=== PATIENT | female | born 1970 | race Caucasian/White ===

== ENCOUNTER 2024-05-19 22:29 | Emergency (ER) | payer MEDICARE, MEDICAID, SELFPAY ==
--- NOTE | ~2024-05-19 | XR_ITS ---
CLINICAL HISTORY: fall 3 view left shoulder Comparison: None Findings: Bones intact. No dislocations. No significant arthritic change. No erosions. No radiopaque foreign body. IMPRESSION: 1. No acute findings This document has been electronically signed by: Ludin Buchanan MD on 05/19/2024 23:30:59
--- NOTE | ~2024-05-19 | XR_ITS ---
CLINICAL HISTORY: fall 3 view left elbow Comparison: None Findings: No displaced fracture. Mild/minimal osteoarthritis including osteophytes by radiographs.No dislocation. Small-minimal effusion. No radiopaque retained foreign body in the [id number]-dm-bwhy. Superficial and correlate opacities noted. IMPRESSION: 1. No acute fracture or dislocation. 2. Mild degenerative change This document has been electronically signed by: Nelson Alejo MD on 05/19/2024 23:31:11
--- NOTE | ~2024-05-19 | XR_ITS ---
CLINICAL HISTORY: fall 3 view, pelvis and left hip Comparison: None Findings: No displaced fracture or dislocation. Mild osteoarthritis of the both hips. Mild pelvis deformities including iliac wing remodeling and pubic rami deformities appear old chronic. Sacrum and SI joints are partly obscured. Degenerative changes include imaged spine.Moderate stool burden in the koeeo-ru-dgit. Phleboliths noted in the pelvis. IMPRESSION: 1. No acute fracture or dislocation of the left hip. 2. Degenerative changes include both hips. This document has been electronically signed by: Nelson Alejo MD on 05/19/2024 23:28:13
[2024-05-19 22:34] VITALS: BP 116/73; PULSE 73; RESP 18; TEMP 37.1; O2SAT 94; BMI 35.1
--- OUTSIDE RECORDS SUMMARY | 2024-05-20 02:40 | XMS_ITS | Encounter Summary ---
Author Organization [facility] Address [phone] [facility] [place] [address] Care Team Providers Care Master Baker Name Role Phone Alex Parks MD Primary Care Provider +- [phone] Mckayla Gregg MD Unavailable [phone] Alex Parks MD Unavailable [phone] Encounter Details Date Type Department Care Team (Late st Contact Info) Description 05/04/2024 Telephone [facility] [place] NEPHROLOGY ([facility]NAL) [address] [place] [address] Praveen Ball MD [address] [place] [address] [email or web address] Social History Tobacco Use Types Packs/Day Years Used Date Smoking Tobacco: Every Day Cigarettes 0.3 38.1 Started: 1987 Smokeless Tobacco: Never Comments:1 pack every 2 days Alcohol Use Standard Drinks/Week Comments Never 0 (1 standard drink = 0.6 oz pur e alcohol) Education Answer Date Recorded Are you interested in more education? Not on ez e 08/07/2022 Are you concerned about learning? Not on file 08/07/2022 No 08/07/2022 No 08/07/2022 Digital Access Answer Date Recorded No 09/02/2022 No 09/02/2022 Reliable internet access at home? Not on file 09/02/2022 Device with a working camera? Not on file Intimate Partner Violence Answer Date R ecorded Are you denied basic needs s uch as food, clothing, or medical care? No 01/22/2024 In the past 12 months have y ou been in a relationship with a person who hurts, threatens, or tries to control you? No 01/22/2024 Are you denied basic needs s uch as food, clothing, or medical care? No 01/22/2024 In the past 12 months have y ou been in a relationship with a person who hurts, threatens, or tries to control you? No 01/22/2024 Sex and Gender Information Value Date Recorded Sex Assigned at Female 10/22/2018 9:40 AM EDT Gender Identity Female 10/22/2018 9:40 AM EDT Sexual Orientation Straight 10/22/2018 9: 40 AM EDT documented as of this encounter Progress Notes * Essie Hernandez MA - 05/04/2024 3:08 PM EST I spoke with patient in regards to a repeat BMP per orders, she needs to repeat nextweek due to having bronchitis he wants he to do when she is feeling better. documented in this encounter Plan of Treatment Upcoming Encounters Date Type Department Care Team (Late st Contact Info) Description 11/25/[address] [place] [address] [place] [address] 01/22/2024 Procedure Pass [facility] Breast Imaging [facility] [address] [place] [address] 06/17/2024 10:40 AM EST Office Visit [address] [address] Reza Early MD [address] [place] [address] [email or web address] 06/17/2024 1:15 PM EST Appointment [facility] Breast Imaging [facility] [address] [place] [address] Ade Ramos MD, MPH [address] [address] [email or web address] 07/01/2024 11:15 AM EDT Office Visit [facility] Department of Orthopaedic Surgery, Podiatry Service [address] [place] [address] Eber Calle DPM [address] [place] [address] [email or web address] 08/01/2024 2:20 PM EDT Office Visit [facility] [address] [address] Jaret Clemons MD [address] [place] [address] - [place] [address] Barrera@[email or web address] 08/09/2024 2:30 PM EDT Appointment [facility] [place] Adult Medicine 151 [facility] [place] [address] Mckayla Gregg MD 151 [place] [address] [email or web address] 11/24/2024 8:[address] [place] [address] [place] [address] Monet Carranza MD, PhD 55 [place] [address] [email or web address] 11/29/2024 9:40 AM EDT Office Visit [facility] NEPHROLOGY (RENAL) [address] [place] [address] Praveen Ball MD [address] [place] [address] [address] [place] [address] CHANTALE@[email or web address] documented as of this encounter Visit Diagnoses Not on filedocumented in this encounter Additional Health Concerns Assessment Noted Time PHQ-9 Depression Total Score: 25 025 11:01 AM EST PHQ-2 Depression Total Score: 6 04/29/19 25 11:01 AM EST documented as of this encounter Care Teams Master Baker Relationship Specialty Start Date End Date Alex Parks MD [address] [place], [place] [address] [place] [address] [email or web address] PCP - General Internal Medicine 03/13/23 Mckayla Gregg MD [address] [place] [address] [email or web address] PCP - Resident PCP Internal Medicine 06/03/23 Alex Parks MD [address] [place] [address] [email or web address] [place] Insurance Assigned Provider 07/18/23 documented as of this encounter Additional Source Comments The information contained in this document represents components of the legal health record. It is not the complete legal health record.[facility]
--- OUTSIDE RECORDS SUMMARY | 2024-05-20 02:40 | XMS_ITS | Encounter Summary ---
Author Organization [facility] Address [phone] [facility] [place] [address] Care Team Providers Care Traffic Lieutenant Name Role Phone Ade Ramos MD, MPH Primary Care Provider [phone] Ade Ramos MD, MPH Unavailable + Ade Ramos MD, MPH Unavailable + Pcp, Unknown Primary Care Provider Unavailabl e Ade Ramos MD, MPH Primary Care Provider + Rosa Damico MD, MPH Unavailable + Alex Parks MD Primary Care Provider + Alex Parks MD Unavailable + Mckayla Gregg MD Unavailable + [phone] Mckayla Gregg MD Unavailable + 00 Alex Parks MD Unavailable + Mckayla Gregg MD Unavailable + 00 Encounter Details Date Type Department Care Team (Late st Contact Info) Description 10/22/2018 Procedure Pass [facility] THIERRY 4 ENDO DEPT [address] [place] [address] Social History Tobacco Use Types Packs/Day Years Used Date Smoking Tobacco: Every Day Cigarettes 0.3 30 Smokeless Tobacco: Never Alcohol Use Standard Drinks/Week Comments No 0 (1 standard drink = 0.6 oz pur e alcohol) Sex and Gender Information Value Date Recorded Sex Assigned at Female 10/22/2018 9:40 AM EDT Gender Identity Female 10/22/2018 9:40 AM EDT Sexual Orientation Straight 10/22/2018 9: 40 AM EDT documented as of this encounter Plan of Treatment Upcoming Encounters Date Type Department Care Team (Late st Contact Info) Description 11/25/[address], [facility] - [place] [address] [place] [address] 01/22/2024 Procedure Pass [address] [address] 06/17/2024 10:40 AM EST Office Visit [address] [address] Reza Early MD [address] [place] [address] [email or web address] 06/17/2024 1:15 PM EST Appointment [address] [address] Ade Ramos MD, MPH [address] [place] [address] [email or web address] 07/01/2024 11:15 AM EDT Office Visit [facility] Department of Orthopaedic Surgery, Podiatry Service [address] [address] Eber Calle DPM [address] [place] [address] [email or web address] 08/01/2024 2:20 PM EDT Office Visit [address] [address] Jaret Clemons MD 243 [facility] [place] [address] [email or web address] 08/09/2024 2:30 PM EDT Appointment [facility] Adult Medicine [address] [place] [address] Mckayla Gregg MD 151 [place] [address] [email or web address] 11/24/2024 8:[address], [facility] [place] [address] [place] [address] Monet Carranza MD, PhD 55 [place] [address] [email or web address] 11/29/2024 9:40 AM EDT Office Visit [facility] NEPHROLOGY (RENAL) [address] [facility] [address] [place] [address] Praveen Ball MD 55 [facility] [address] [place] [address] [email or web address] documented as of this encounter Visit Diagnoses Not on filedocumented in this encounter Additional Health Concerns Infection Onset Date Last Indicated Resolved Time CoV-Risk 04/03/2020 04/29/2020 04/13/2020 1:27 AM EST CoV-Exposed Comment:Recent close contact documented in the COVID-19 PCR/PRO order 04/11/2021 04/18/2021 04/26/2021 1:[address] CoV-Risk Comment:Per Ambulatory Triage Form 04/18/2021 04/24/202105/04 1:22 AM EST CoV-Risk Comment:Per Ambulatory Triage Form 11/14/2022 11/14/202211/25 /2023 1:23 AM EDT CoV-Risk Comment:Per Ambulatory Triage Form 02/11/2024 02/11/202402/21 1:23 AM EST Assessment Noted Time PHQ-9 Depression Total Score: 7 07/16/19 16 9:26 AM EDT PHQ-2 Depression Total Score: 0 07/20/19 19 12:29 PM EDT documented as of this encounter Care Teams Traffic Lieutenant Relationship Specialty Start Date End Date Ade Ramos MD, MPH [address] [place] [address] [email or web address] PCP - General 10/11/13 04/28/20 Pcp, Unknown PCP - General 04/29/20 05/28/20 Ade Ramos MD, MPH [address] [place] [address] [email or web address] PCP - General Internal Medicine 05/29/20 03/12/23 Rosa Damico MD, MPH [address] [place] [address] [email or web address] PCP - Resident PCP Internal Medicine 01/23/23 03/12/23 Alex Parks MD [address] [place] [address] [email or web address] PCP - General Internal Medicine 03/13/23 Mckayla Gregg MD [address] [place] [address] [email or web address] PCP - Resident PCP Internal Medicine 06/03/23 Ade Ramos MD, MPH [address] [place] [address] [email or web address]@[facility] Partners Attributed Provider 06/17/14 01/17/23 Ade Ramos MD, MPH [address] [place] [address] Kavya@[email or web address] Insurance Assigned Provider 07/20/19 04/21/20 Alex Parks MD [address] [place], [place] [address], [place] [address] [email or web address] Partners Attributed Provider 04/18/23 06/20/23 Mckayla Gregg MD [address] [place], [place] [address] [place] [address] [email or web address] Partners Attributed Provider 06/20/23 08/20/23 Alex Parks MD [address] [place] [address] [email or web address] Insurance Assigned Provider 07/18/23 Mckayla Gregg MD [address] [place] [address] [place] [address] [email or web address] Partners Attributed Provider 06/20/23 08/20/23 documented as of this encounter Additional Source Comments The information contained in this document represents components of the legal health record. It is not the complete legal health record.[facility]
--- OUTSIDE RECORDS SUMMARY | 2024-05-20 02:40 | XMS_ITS | Encounter Summary ---
Author Organization [facility] Address [phone] [facility] [place] [address] Care Team Providers Care Rock Mason Name Role Phone Alex Parks MD Primary Care Provider [phone]- [phone] Mckayla Gregg MD Unavailable [phone] Alex Parks MD Unavailable [phone] Reason for Visit * Reason Comments Medication Refill Encounter Details Date Type Department Care Team (Late Contact Info) Description 03/24/2024 Refill [facility] Adult Medicine [address] [place] [address] Mckayla Gregg MD 151 [place] [address] [email or web address] Medication Refill Social History Tobacco Use Types Packs/Day Years [...] CT, [facility] [place] [address] [place] [address] 01/22/2024 Procedure Pass [facility] Breast [address] [address] 06/17/2024 10:40 AM EST Office Visit [address] [address] Reza Early MD [address] [place] [address] [email or web address] 06/17/2024 1:15 PM EST Appointment [facility] [address] [place] [address] Ade Ramos MD, MPH [address] [address] [email or web address] 07/01/2024 11:15 AM EDT Office Visit [facility] Department of Orthopaedic Surgery, Podiatry Service 55 [facility] [address] [place] [address] Eber Calle, DPDianne 98 [place] [address] [email or web address] 08/01/2024 2:20 PM EDT Office Visit [facility] [address] [address] Jaret Clemons MD 243 [facility] [place] [address] [email or web address] 08/09/2024 2:30 PM EDT Appointment [facility] Adult Medicine [address] [place] [address] Mckayla Gregg MD 151 [place] [address] [email or web address] 11/24/2024 8:[address] [place] [address] [place] [address] Monet Carranza MD, PhD [address] [place] [address] [email or web address] 11/29/2024 9:40 AM EDT Office Visit [facility] NEPHROLOGY ([facility]NAL) 100 [facility] [address] [place] [address] Praveen Ball MD 55 [facility] [address] [place] [address] [email or web address] documented as of this encounter Visit Diagnoses Diagnosis Nasal congestion Other diseases of nasal cavity and sinuses documented in this encounter Additional Health Concerns Assessment Noted Time PHQ-9 Depression Total Score: 25 024 11:07 AM EDT PHQ-2 Depression Total Score: 6 01/22/20 24 11:07 AM EDT documented as of this encounter Care Teams Rock Mason Relationship Specialty Start Date End Date Alex Parks MD [address] [place] [address] [place] [address] [email or web address] [place] PCP - General Internal Medicine 03/13/23 Mckayla Gregg MD [address] [place] [address] [email or web address] PCP - Resident PCP Internal Medicine 06/03/23 Alex Parks MD [address] [place] [address] [email or web address] [place] Insurance Assigned Provider 07/18/23 documented as of this encounter Additional Source Comments The information contained in this document represents components of the legal health record. It is not the complete legal health record.[facility]
--- OUTSIDE RECORDS SUMMARY | 2024-05-20 02:40 | XMS_ITS | Clinical Summary ---
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 Plan (04/22/2023 10:44 PM EST): Switched to irbesartan from losartan at last visit w/PCP Dr. Alex Parks 04/10/23. Since then, reports significant decrease in UOP (reports about half her UOP now) along with swelling in her hands and face, and GI upset specifically when taking irbesartan. She stopped taking irbesartan 2d ago and ended up with a severe headache. Took her BP at home and it was 203/98. She decided to take her losartan 100 mg instead. BP dropped to 179/82 when she re-took it a few hours later and she was able to sleep. She is still taking doxazosin 4 mg and verapamil 120 mg, as well as daily losartan 100 mg now. On exam, no appreciable facial or periorbital edema noted by pt. She does have very mild swelling in her hands b/l. BP today remains severely elevated 184/96 on manual re-check by me. Endorses moderate to severe WHITLEY but this is common for her when her BP is this high. She describes significant BEAN now, this usually happens when her BP is elevated. Feels persistent tightness in her chest, but denies chest pain. Denies dizziness, vision changes. No syncope. Her EKG shows sinus bradycardia (HR 57) w/nl axis, nl intervals, no ischemic changes, good R wave progression, increased QRS voltages but no LV stain pattern. Overall highest c/f progressive renal failure on new anti-HTN regimen and hypertensive urgency with possible cardiovascular sequela given her persistent chest tightness ad BEAN. Strongly recommend that pt present to ED for ongoing workup and tx to decrease her BP. She declines despite understanding significant health risk this poses for her. Understands that severe HTN like hers can result in significant injury and even . We checked BMP today which shows stably elevated Cr, pt aware and will see renal and vascular soon for her DAVID. After brief discussion with her PCP today, will add amlodipine despite pt being on verapamil. Dr. Parks spoke with pharmacy and amlodipine recommended by them, given though that adding amlodipine could be helpful for adding more peripheral arterial dilation. We are unable to add labetalol or increase verapamil given her bradycardia. - Pt counseled to present to ED for chest tightness and severe WHITLEY iso hypertensive urgency with SBP>180, pt declines, understands risks and able to repeat them back to me. - BMP stable today, discussed with pt - EKG w/sinus bradycardia (HR 57) w/nl axis, nl intervals, no ischemic changes, good R wave progression, increased QRS voltages but no LV stain pattern. - Called pharmacy to confirm final anti-HTN regimen: verapamil 120 mg daily (cannot increase more, limited by bradycardia), doxazosin 4 mg daily, losartan 100 mg daily, now start amlodipine 5 mg daily per PCP Assessment & Plan (04/10/2023 2:34 PM EST): BP Readings from Last 3 Encounters: 04/10/23 (!) 174/120 03/26/23 (!) 158/78 03/19/23 (!) 175/83 Presents for an urgent visit for uncontrolled BP Previously BP well controlled until 11/2022 visit Taking doxazosin 4 mg, verapamil 120 mg, losartan 100 Reports a little WHITLEY now and total body pain which is chronic for her Last 3 days BP recordings at home, checking first thing in the morning while in pain - 197 /97, 201 / 100, 199/97 Takes all meds at night Wakes up in the night gasping for air, short of breath at times Endorses snoring During our visit, renal US results showing R sided renal artery stenosis > 60% BP in 170s/90s today in-office A/P: Refractory htn likely 2/2 renal artery stenosis. Low concern for hypertensive emergency at this time. - Switch losartan to irbesartan 300 mg - Continue verapamil 120 mg and doxazosin 4 mg - CMP, renin, aldosterone, urine/plasma metanephrines to rule out other secondary causes - Referral to vascular as below for DAVID - Consider sleep study if no improvement with med titration and DAVID correction - RN visit in 2 weeks for BP- goal BP < 130/80. If not at goal, add amlodipine to 5 and consider pharmacy referral. - Check BMP in 2 weeks after ARB titration today - Advised pt to check BP daily and record values. Bring BP log and machine to next visit with RN. Assessment & Plan (03/19/2023 8:49 PM EST): Recently her previously well controlled BP has been quite high, and her headache is bothering her. I think she is taking prescribed meds, and we have been, titrating doxazosin. Other meds, verapamil w/ dose limited by bradycardia, diuretic stopped b/o azotemia that never fully resolved, losartan. She had been better controlled before, including when her weight was higher. Will check for secondary causes, mostly concerned w/ DAVID, given azotemia and hx w/ diuretic. Pheo less of a concern, given clinton. Increase dox to 4 mg qhs. Max dose for HTN is 16 mg. She has a PCP appt in >2 months. I will set a reminder to get in touch about her BP, and we can titrate it further as needed. Assessment & Plan (11/27/2022 10:33 AM EDT): BP 170-180 at home. High on entry here, repeat 130/90. On ARB, CCB, intolerant to diuretics. No allergies to BP meds. Trial doxazosin 1 mg at hs, advised risk first dose hypotension, this can be titrated. Assessment & Plan (09/04/2022 3:28 PM EDT): BP good at recent f/u visit and at home We had started a diuretic, but she quickly became azotemic on it, and this did not resolve completely after stopping the diuretic. She had an appt this morning for renal u/s, which was normal. Renal referral is pending. Will update BMP Assessment & Plan (08/07/2022 1:34 PM EDT): BP at goal during visit today She has stopped dyazide and continues losartan and verap Repeat labs today, will f/u w pt re results Assessment & Plan (07/30/2022 5:20 PM EDT): More azotemic on Dyazide, I had her reduce it to every other day, now even more azotemic. I will have her stop it, repeat the lab in about a week. If not improved, will do renal u/s and consult renal. Assessment & Plan (06/26/2022 11:13 AM EDT): Home BP high add dyazide, lab reminder 1-2 weeks Assessment & Plan (06/12/2022 1:47 PM EST): Current BP meds losartan 25 mg, 2 tabs = 50 mg qAM, and verapamil 120 mg tablet ( not capsule) (somehow got kicked off med list) at hs. Home BP 189.116, pulse 78 Very high BP. Incr losartan to 100 mg and take at hs. I will call in 1-2 weeks and see about titrating verap, or adding another med. We may consider switching verap to amlod and adding a bb. Assessment & Plan (05/26/2022 7:44 PM EST): Last time her BP was very high. She was asked to resume losartan 25 mg qd. She did not f/u as req'd. Her entry BP is quite high. She was in a lot of pain, and got somewhat agitated around interpretation of the history, we did not visit this, and we need to do so at the upcoming appt. Need to How it is at home. Assessment & Plan (04/27/2022 8:26 AM EST): Pt notified us that verap XL 120 mg capsule not covered by ins, pls switch to tablets. Done. Assessment & Plan (04/03/2022 5:14 PM EST): BP is really high today. Resume losartan 25 mg qd. Has monitor at home, start recording BP. Reminder set to contact her in 3 weeks about BP Assessment & Plan (03/23/2017 9:19 AM EST): She had low BP and felt lightheaded, so stopped both the verapamil and the losartan. Her BP still is a little on the low side off BP meds. Possible reasons - resolution of HTN due to weight loss, neuropathy, or other factors, lowering of BP by psych meds. Will resolve this problem for now Assessment & Plan (11/20/2016 5:11 PM EDT): BP controlled today, and at home, when it is around 112/53 typically. Continue same meds and monitoring Assessment & Plan (07/21/2016 5:15 PM EDT): Home BP is good. BP controlled today. Continue same meds and home monitoring Assessment & Plan (12/11/2015 12:45 PM EDT): BP fine at home, did not bring record today. BP controlled today. Continue same meds and monitoring Assessment & Plan (10/16/2015 2:39 PM EDT): Home BP is good, Jamal forgot their log. BP controlled today. Continue same meds Pain in wrist 10/07/2011 Overview (07/15/2015): Right; De Sylvia's tenosynovitis Assessment & Plan (07/16/2015 3:19 PM EDT): Pt rec'd an injection, had negative outside xray, states sx better. Will observe for now. Obstructive sleep apnea syndrome 07/24/2011 Overview (07/15/2015): 2010 prior to 40+ lbs weight loss, her sleep disordered breathing was very mild w/ less than 2 minutes below 88% O2 sat. Did not meet criteria for CPAP. Other methods of tx Recommended. Assessment & Plan (05/23/2019 1:59 PM EST): This probably remitted after she lost wt. Noted as such on colonoscopy request Osteoarthritis 02/11/2011 Overview (07/15/2015): R 2nd finger Assessment & Plan (12/07/2017 11:15 AM EDT): bilat shoulder pain, influences ability to raise arms. ADL indep. Got worse after stopping topiramate. Lido topical helps somewhat. Full ROM, enc to continue to do ROM exercises to avoid loss of fxn Incr gabapentin as noted Check ESR Bipolar disorder 12/13/2010 Overview (07/16/2015): Past hx depression w/ psychotic features, PTSD. [facility], [address] floor, [place] [address], tel [phone], fax [phone] Assessment & Plan (03/19/2023 8:53 PM EST): Continues in psychopharm in [facility], [facility] as noted - she knows them, says mood is great. She proceeds to show me a number of photos of her late mother, her children, and some of her 15 grandchildren. She updated me about Jamal's situation; seems that they are back in contact. Assessment & Plan (11/27/2022 10:37 AM EDT): She is doing great, euthymic, managing her own life, good support from her younger kids and Jose E, one of the older ones. Assessment & Plan (09/04/2022 3:31 PM EDT): Mood is good. Assessment & Plan (05/26/2022 7:49 PM EST): As prev noted, she had a falling out w/ Jamal, and has been much more independent since then. She has a new WAIST PLEATER she likes, and is working on getting a new apt. She says she is in a good place emotionally right now. Assessment & Plan (04/03/2022 5:37 PM EST): Pt is here for help making arrangements after she and Jamal parted ways. She relates the events, and she is quite calm and coherent. She knows her meds and her diet. She just needs a homemaker b/o physical impairments. She tells me her psychiatrist stopped her clonazepam, and she stopped her Inveiga. I hope she does not relapse off these meds. Assessment & Plan (10/03/2021 1:37 PM EDT): Feeling depressed almost a year after mother . Some days does not want to get out of bed. No SI. Discussed, recommend d/w psychiatrist, which she is doing Assessment & Plan (06/04/2021 6:46 PM EST): Continues w/ pharm and counseling at in [place]. She is feeling good in this regard. Well organized, though she does not know her meds, and affect is great. She is enjoying life, even though mother last year. Assessment & Plan (03/26/2021 10:14 AM EST): Continues w/ psych in [place], doing well w/ her mood. She is somewhat upset b/c the agency monitoring her [employer] failed her building. She shows me a letter w/ numerous upgrades and repairs the landlord has to meet. If they don't, she has to find another apt in 28 days. She has a housing social media campaign manager to help with this. She also reports that Jamal is off doing his own thing and helping less w/ her medical affairs lately. He supervises her meds, but she is managing them herself. She seems more independent and capable of her own self care these days. Assessment & Plan (12/14/2020 12:57 PM EDT): Recent psych med changes - see med list for current meds. She lost her mother less than a week ago, stayed w/ her for the last 2 months. I attended the w/ the family 2 days ago. Today she is coherent, calm, and has a cheerful though appropriate affect. Pt is doing really well except for her eating. She is at peace with the loss of her mother, who suffered greatly due to her illness burden. ECG done to monitor QTc, it is normal Assessment & Plan (06/07/2020 10:44 AM EST): She is on a lot of meds. Her mood is excellent today. She says her psych is going to start cutting back on some of the meds Assessment & Plan (09/22/2019 3:25 PM EDT): She feels her mood and anxiety are good at this time. She has Narcan from another provider, states psych gave it to her b/c she is taking Ambien. She is not taking any opioids Assessment & Plan (05/23/2019 2:03 PM EST): Brings psych med list, adjusted in our list Assessment & Plan (07/19/2018 5:46 PM EDT): Mood is great on current meds. Cont outpatient psych f/u Assessment & Plan (03/18/2018 12:24 PM EST): Psych had taken her off topamax quentin high sugar, now back on topamax. Her mood is good. Assessment & Plan (12/07/2017 11:06 AM EDT): Mood continues very good. She is functioning well and enjoying life Assessment & Plan (07/30/2017 9:08 AM EDT): NO recent changes in meds. Her affect and mood are great, and she is engaging more. No obvious SEs from current meds. Overall, this is a huge improvement. Assessment & Plan (03/23/2017 9:26 AM EST): Mood and anxiety are excellent. She is enjoying life. Active, very coherent today, good affect, able to converse and reconcile meds w/o help of her son. Will check ECG to monitor QTc on some of her psych meds Assessment & Plan (11/20/2016 5:08 PM EDT): Doing much better, still off Abilify. Her granddaughter is staying w/ them for the summer, and she is having a good time. In fact, her affect and presentation is the most relaxed and comfortable I have seen her in years. Assessment & Plan (07/21/2016 5:18 PM EDT): Son says psych took her off Abilify. Her affect and presentation are very good today. Not sure exactly what causes the fluctuations. Will cont w/ psych Assessment & Plan (04/22/2016 1:17 PM EST): Still tapering her meds w/ psych, unclear if further tapers since last visit w/ me, at which time, she seemed quite depressed and unhappy w/ the changes. No signs of a [place] language day care in their [facility]. On exam today she appears depressed, but is calmer and more focused than last time. Assessment & Plan (01/17/2016 6:25 PM EDT): They tell me that her psychiatrist is trying to taper her off all meds, not just psych meds. They lowered the Topamax a little, and since then, she has been more irritable, unmotivated to dress and clean herself, not following her diet, sleepy, eating too much, and now has a month of nocturnal enuresis w/o dysuria or fever. She seems depressed, and maybe not on the best comb of meds, seems to need a lot of medication. Nocturnal enuresis may be related to medications, poor motivation to get up to void, hyperglycemia, UTI. Will check urine culture, consider urogyn consult. They will talk to psych. She wants to go to adult day care, but Jamal does not think he can drive her from [place] to [place] daily. They know only a [place] pgm in [place]. Consult to [employer] resources pg[employer] to look for a [place] or [place] language pgm in their area, so she can go to social activities, and her son can get some respite. Assessment & Plan (07/16/2015 3:33 PM EDT): Her new mental health provider Tiffanie Pandya, [facility], sends a note requesting we do labs and send to her - HBA1c, lipids, thyroid CMP, CBC and diff, vit D. As these tests mostly overlap w/ what I was going to do anyway, I ordered them, and will send them along once I get the results. Pt and son aware of this. Recently her zolpiden was decreased 12.5 to 10 mg qhs, no other med reductions. After that, her sleepwalking and night eating ceased. She tests mildly positive on the PHQ9. Affect is good today. Suspect improved, but I still think she is on a lot of meds, and would benefit from decreasing them. Suspect her protean somatic sx are related to her intrapsychic struggles. Hyperlipidemia 01/02/2004 Overview (06/04/2021): Refractory to major weight loss, max statin and ezetimibe, and to fibrate. Probably a type of familial HL. Had trouble getting started, but eventually did well w/ alirocumab. Assessment & Plan (09/03/2022 8:23 PM EDT): Lab update Assessment & Plan (06/12/2022 1:48 PM EST): Due for lab update Assessment & Plan (02/05/2022 9:03 AM EDT): Tolerating alirocumab. Assessment & Plan (10/01/2021 12:09 AM EDT): Recent lipids look great on current regimen Assessment & Plan (06/04/2021 6:38 PM EST): Pt reports tolerating the alirocumab. Assessment & Plan (03/26/2021 10:08 AM EST): Her lipids were still high last time, but definitely responded to alirocumab. There has been some question that she did not tolerate it. She says she is taking it now. I had requested lipids, but she had her labs drawn already so will need to do another time Assessment & Plan (10/18/2019 9:19 AM EDT): Rec'd msg from Dr Mike Grover concerned that pt take something for her lipids, preferably alirocumab or evolucumab. I called pt and explained, and she is agreeable to trying it again. Plan is 75 mg SC q2 weeks. Check lipids (and any other labs she is due for) no earlier than after the 2nd dose, and less than 2 weeks after any dose. If not controlled, incr to 150 mg. Evolucumab is only one dose, but some insurances won't cover it. I will notify them when it is time for labs. Msg left for Jamal. Assessment & Plan (07/20/2018 9:43 AM EDT): Lipids still high, but hugely improved on no meds, likely b/o wt loss and less insulin. Will continue to titrate insulin down as she loses wt, then try rosuvastatin again once the diabetes and wt are stabilized. Assessment & Plan (07/19/2018 5:48 PM EDT): Says tried alirocumab, but felt lousy, so stopped taking. Evidently there are no other real options at this time Assessment & Plan (03/18/2018 12:38 PM EST): She agrees to the injectable med. Evolucumab 140 mg q2 weeks might be covered, the others are not. Rx sent, msg to Rn about PA Assessment & Plan (12/07/2017 11:02 AM EDT): No meaningful tx available, b/c she did not respond to most potent statin, and does not want to take alirocumab. Assessment & Plan (07/30/2017 9:07 AM EDT): Took 1 dose alirocumab, and 1/2 hour later felt horrible, nausea, weakness, headache. This lasted the whole day, and she was fine the next day. Not willing to try it again, in case the illness was not caused by the med. Will ask Dr Grover for further advice at this point. Assessment & Plan (03/23/2017 9:22 AM EST): All meds seem not to budge her lipids. She is agreeable to trial of alirocumab 75 mg SC every 2 weeks, cannot be etransmitted, printed rx given. Will request insurance auth. Reviewed data, no known interactions, risk allergy, URI. Assessment & Plan (11/20/2016 5:07 PM EDT): In consultation w/ Lipid consult, took her off statin and zetia, now on fenofibrate. Will check lipids today. Assessment & Plan (08/04/2016 4:22 PM EDT): Re communication w/ Dr Mike Grover, I called pt's son Jamal, ask him to discontinue rosuvastatin and ezetimibe, and start fenofibrate alone. Will send to pharmacy, recheck next labs. Assessment & Plan (07/21/2016 5:17 PM EDT): Her lipids off statin and zetia were similar to the lipids on these rx. Lipid team told her to resume these meds, which she did. Due to repeat lipids on rx. Will do. Labs rev'd w/ her Assessment & Plan (04/22/2016 1:09 PM EST): Saw Dr Grover. No evidence that her medications are impacting her lipids, so they told her to stop taking them for a few weeks, and recheck the lipids. She stopped her statin and ezetimibe, but did not recheck the lipids, which she is asked to do today. Current working dx is that her psych meds may be making her lipids worse. Assessment & Plan (01/17/2016 6:21 PM EDT): Lipid associates consult pending Assessment & Plan (12/11/2015 12:47 PM EDT): Now taking rosuvastatin and ezetimibe. Repeat lipids today. If LDL still very high, will make lipid referral, advised pt Assessment & Plan (10/16/2015 2:49 PM EDT): Lab Results Component Value Date CHOL 392 07/16/2015 CHOL 293 01/04/2015 CHOL 285 11/11/2013 HDL 34* 07/16/2015 HDL 39 01/04/2015 HDL 38 11/11/2013 LDL 293 07/16/2015 LDL 174 01/04/2015 LDL 213 04/11/2013 LDLDIR 211* 11/11/2013 LDLDIR 248* 02/14/2013 LDLDIR 249* 09/02/2012 TRIG 324* 07/16/2015 TRIG 399* 01/04/2015 TRIG 190* 04/11/2013 CHOLHDL 11.5 07/16/2015 CHOLHDL 7.5 01/04/2015 CHOLHDL 6.8 04/11/2013 As noted, her lipids have gotten steadily worse, and now are very high, despite supervised high potency statin, ezetimibe, and successful diet as evidenced by considerable weight loss and normoglycemia. Likely has some sort of familial dyslipidemia. Plan - Change atorva 80 to rosuvastatin 40 mg qd, continue ezetimibe. If lipids on this regimen are not considerably improved, refer to lipid specialist about one of the novel agents now available. Assessment & Plan (07/16/2015 3:39 PM EDT): As of last visit, she was not taking her statin, but she is now. Lab - recheck today Headache 05/18/2003 Overview (10/14/2023): >>OVERVIEW FOR TENSION TYPE HEADACHE WRITTEN ON 05/23/2019 2:02 PM BY HEATHER MADDOX MD Assessment & Plan (12/18/2023 3:36 PM EDT): A&P: Will start with increasing pregabalin frequency and can consider starting triptan at next visit. - Pregabalin 150 mg TID Assessment & Plan (10/14/2023 5:31 PM EDT): >>ASSESSMENT AND PLAN FOR TENSION TYPE HEADACHE WRITTEN ON 07/16/2015 3:34 PM BY HEATHER MADDOX MD She had a bad headache all last week, and took a lot of ibuprofen. It is better right now. I will not add any more prophylactic rx, b/o her high med burden currently. Assessment & Plan (10/14/2023 5:31 PM EDT): >>ASSESSMENT AND PLAN FOR TENSION TYPE HEADACHE WRITTEN ON 12/07/2017 11:05 AM BY HEATHER MADDOX MD R sided headache at this time, daily, relieved w/ ibuprofen. A/w blurry vision OD. It began prior to starting ibuprofen, though is now taking ibuprofen daily. Her psych stopped the topiramate b/c it made her sugars go up, and we think that is what precipitated the worsening headache. Takes 2 small cups decaf in the AM, no other caffeine. Advised not to take daily NSAID b/c can worsen WHITLEY among other side effects. incr gabapentin to 400 mg tid Assessment & Plan (10/14/2023 5:31 PM EDT): >>ASSESSMENT AND PLAN FOR TENSION TYPE HEADACHE WRITTEN ON 03/18/2018 12:24 PM BY HEATHER MADDOX MD Had gotten worse after psych took her off topamax, so we increased her gabapentin. WHITLEY better. She is back on the topamax, feeling lightheaded. Will decrease the gabapentin back to 300 mg tid. Assessment & Plan (10/14/2023 5:31 PM EDT): >>ASSESSMENT AND PLAN FOR TENSION TYPE HEADACHE WRITTEN ON 07/19/2018 5:45 PM BY HEATHER MADDOX MD WHITLEY and dizziness improved on lower gabapentin. They could wean it. Assessment & Plan (10/14/2023 5:31 PM EDT): >>ASSESSMENT AND PLAN FOR TENSION TYPE HEADACHE WRITTEN ON 05/23/2019 2:03 PM BY HEATHER MADDOX MD Today reports 2 months constant WHITLEY, diffuse. Takes some pain meds. Tender diffuse upper back, neck, temporal muscles w/ trigger points. Muscle tension WHITLEY, discuss ice, massage. Could also address at PT Assessment & Plan (10/14/2023 5:31 PM EDT): >>ASSESSMENT AND PLAN FOR TENSION TYPE HEADACHE WRITTEN ON 06/04/2021 6:46 PM BY HEATHER MADDOX MD She reports 2 weeks of R sided headache that is worse in the afternoon and evening, and her forearm and fingers get numb. No jaw claudication or fever, no visual disturbance. Exam notable for R temporal tenderness, also tenderness but no effusion of elbow, forearm, positive Easton's test, neg Spurling's test. Likely recurrent tension WHITLEY, but will check ESR (always normal in past), other labs, wrist splint for CTS, PT referral pending. Could ask PMR to address, or update EMG to distinguish cervical radicular sx. Assessment & Plan (10/14/2023 5:31 PM EDT): >>ASSESSMENT AND PLAN FOR TENSION TYPE HEADACHE WRITTEN ON 10/03/2021 1:33 PM BY HEATHER MADDOX MD R sided WHITLEY c/w muscle tension noted last time. ESR completely normal Persists daily, more in PM. Better if applies a headband, unclear if relief from APAP, monitor for now Assessment & Plan (10/14/2023 5:31 PM EDT): >>ASSESSMENT AND PLAN FOR TENSION TYPE HEADACHE WRITTEN ON 10/09/2022 7:51 PM BY HEATHER MADDOX MD Returns w/ flare of chronic headache, which is fairly diffuse. Has component of R TMJ, see separate entry. As prev noted, could also be part of her longstanding diffuse myofascial pain syndrome. On multiple prophylactic meds for migraine and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 lowered insulin dose, despite what she describes as eating too much and regaining 10 lbs. Last HBA1c 5.5%. Support given to stick w/ diet. We may be able to decrease her insulin some more. Assessment & Plan (07/20/2018 9:42 AM EDT): HBA1c 5.3% Advised Jamal to decrease Basaglar / Lantus from 60 to 45u qd, cont to monitor, and if BG goes up, we certainly can increase it back up. Assessment & Plan (07/19/2018 5:44 PM EDT): We cut her insulin dose last time, b/o wt loss and low sugars and HBa1c. No further dizziness HBA1c 5.4% LDL 263 Urine microalb nl Eye 07/08/18 - mild cataracts, poss mild DR, to f/u 2-3 months, will scan note provided. Update diabetes labs. Discussed. Assessment & Plan (03/18/2018 12:21 PM EST): Recent decrease in Basaglar b/o low sugars and wt loss. Sugars 60s-70s in the AM. She does not get sx. Continues to lose wt through heatlhy diet. HBA1c 5.&% LDl 265 Urine microalb nl Eye 12/28 Cut Basaglar further to 60u, advised goal is 100-120 in the morning. I am concerned she does not know when she is low. Update HBA1c Assessment & Plan (12/07/2017 11:06 AM EDT): Pt is fearful of Basaglar b/c it is a new Brand. Was low once only recently. Son checks it 4 times a day HBA1c 65 LDL 263 Urine microalb nl Eye 12/28 Imp - tight control related to dietary adherence and exercise. Decr Basaglar to 70u qd Advised to check sugars once a day, different times of the day, to cut down on needlesticks However has lost 22 lbs since last time, if HBA1c high again, I will call them Assessment & Plan (07/30/2017 9:06 AM EDT): Sugars always in 100s, no low and no high. She increased her Lantus to 80 units daily after last HBA1c of 8.2%. Weight loss with increased insulin suggests that she also is eating a whole lot less, but will recheck HBA1c to make sure it is not rampant hyperglycemia. LDL 218 - alirocumab added after that, see separate entry, repeat lipid Eye 12/28 Seems to be doing very well w/ support of family and good affective state. Recheck labs Assessment & Plan (03/23/2017 9:21 AM EST): Sugars mid 100s, no highs or lows. Says following diab diet and not eating at night. Went to podiatry at [facility], does not want to go in [place]. HBA1c 6.5% LDL 229 Urine microalb nl Eye - being seen every 6 mo at [facility], says they are trying to have me send their notes. States has mild cataracts, not VS, no DR. Will update labs Assessment & Plan (11/20/2016 5:06 PM EDT): Back on track w/ diet and walking. Had one episode of high sugar back in September, but when son checked it 15 minutes later, it was normal. Sugars in the 90s now. HBA1c 5.4% LDL 205 Urine microalb 2016 Eye recent exam. Wants home improvement installer. Sugar seems well controlled, suspect high sugar was spurious, he is advised Update diabetes labs. Advise to look online for local [place] home improvement installer, rather than going to [facility]. Assessment & Plan (07/21/2016 5:16 PM EDT): Sugars are quite good, despite wt gain. HBA1c 5.4% LDL 210 off rx Discussed, update HBA1c. Enc to return to exercise Assessment & Plan (04/22/2016 1:18 PM EST): Variable sugars, which depend on how well she is following her diabetic diet. Most around [place] she ate a lot and had high sugars, the rest of the time, her diet and blood sugar are better. HBA1c 6.4% Urnie microalb nl LDL 247 Lab HBA1c Enc to stick w/ diet Diabetes DVD requested Assessment & Plan (01/17/2016 6:20 PM EDT): Lately has not been following her diet, and has gained wt. Sometimes fasting sugar 300-400. HBA1c 6.4% LDL elevated, repeat pending On max rx, lipids still very high Has appt at lipid clinic to see if should get one of the new agents Says has eye appt at [facility] Assessment & Plan (12/11/2015 12:45 PM EDT): Sugars mid 100s. He has been feeding her more since the syncope. Plan is to check HBA1c, enc to return to usual diab diet Assessment & Plan (10/16/2015 3:02 PM EDT): 200s in AM if snacks at night, but mostly good. No symptomatic low sugars. HA1c 6.6% LDL 293 (on atorva and ezetemibe; higher than before) Urine microalb nl Eye 07/26 Imp - diabetes terrific control in context of lifestyle management Lipids not at goal, see below Congrat on good diab control and enc to continue diet and exercise as able Jamal reminded to make her an appt for routine diabetic eye exam Assessment & Plan (07/16/2015 3:40 PM EDT): Doing better. FBS 80s, postprandial 130s, not much low sugar sx HBA1c 7.1% LDL 174 off statin Urine microalb nl Eye 07/26 Lab today HBA1c, lipids Asthma 02/22/2001 Overview (07/15/2015): Assessment & Plan (02/03/2024 4:26 PM EDT): A&P: Patient would benefit from a Nebulizer as she suffers from asthma. The therapeutic objective is to improved airflow, decrease shortness of breath, and decrease wheezing. Assessment & Plan (11/27/2022 10:33 AM EDT): Recent phone call w/ URI sx. Flaring recently, but OK now. We can add a LAMA such as Spiriva if we need to. Assessment & Plan (09/04/2022 3:29 PM EDT): Using rescue meds, having itching of upper respiratory mucosa and needs rescue meds after walking outside. Lungs clear. Add loratadine 1-2x per day for allergic component. Assessment & Plan (04/03/2022 5:14 PM EST): Has not needed nebs lately. Taking controller meds. Assessment & Plan (06/04/2021 6:37 PM EST): Jamal is giving her the nebs bid, even though she has stopped smoking, and it is not clear she has any sx. She is asked not to take the nebs unless she is having asthma sx. Assessment & Plan (10/04/2018 3:43 PM EDT): Pt states has a cough, worse at night, equivocal about sputum, no fever. Had a runny nose. She is not coughing now, her lungs are clear. She may have had a URI that is resolving, asthma flare that is resolving, or coughing b/o reflux. Monitor for now Assessment & Plan (12/07/2017 11:01 AM EDT): No recent attacks, enc to stop smoking Assessment & Plan (07/30/2017 9:11 AM EDT): Just SOB after running up the stairs, and uses nebs or advair prn. Lungs clear today. Reviewed to use the advair 1 puff bid, no more than that, and limit the neb to prn use Assessment & Plan (03/23/2017 9:20 AM EST): Has not flared. She continues to use nebs on a daily basis, she says to prevent runny nose from turning into an asthma attack. Lungs clear now. I am not able to convince her to switch the nebs to prn use only. Assessment & Plan (11/20/2016 5:04 PM EDT): Better lately since cutting way back on smoking. Has not needed rescue inhaler lately. Assessment & Plan (07/21/2016 5:16 PM EDT): Continues mild, intermittent BEAN. Lungs clear, likely related to mild intermittent asthma, actually improved w/ reduction in smoking. Cont to use meds, enc to quit smoking all the way, and increase exercise Assessment & Plan (10/16/2015 2:40 PM EDT): Bothering her very little lately. Needs rescue medication twice a week or less. Imp - improved after cut smoking P continue to work on quitting Assessment & Plan (07/16/2015 3:36 PM EDT): Pt says it is not bad lately. That being said, needs to use nebulizer bid b/c comes in from her daily walks short of breath and wheezy. She is on a good controller regimen. Hopefully complete cessation of smoking will help. Resolved Problems Problem Noted Date Diagnosed Date Resolved Date Dyspnea 09/28/2023 01/23/2024 Assessment & Plan (09/29/2023 12:04 AM EDT): S: Endorses that she has had chest tightness / discomfort associated with increased , orthopnea and BAEN. She endorses less activity tolerance. She denies peripheral edema. She continues to smoke (one pack lasts about 3 days) In Jan 2023, she had stress exercise test, which was ordered due to abnormal EKG. No ischemia was found. No TTE done up to now O: Neck: Jugular vein not appreciated Regular bradycardia. Denies chest discomfort during this visit Resp: Breathing comfortably, CTAP Extremities: No edema appreciated. EKG (unchanged from prior - see HTN problem. Evidence of LVH) 02/10/23 [place] Myocardial Perfusion exercise Summary and Conclusions: 1. The patient underwent exercise stress testing using the standard Tony protocol. -The patient exercised for 4 minutes and 14 seconds. -The test was stopped due to fatigue. The peak heart rate was 137 bpm which represents 83 % predicted maximal heart rate for this patient -The patient achieved 7.0 METs which is consistent with good exercise capacity. 2. No chest pain during exercise. 3. The ECG was negative for ischemia. 4. Qualitative Findings: There is no definite evidence of ishcemia or infarction in a study with breast and soft tissue attenuation of photons, to the slightly sub- maximal heart rate achieved. The LVEF is 66%. 5. There are no prior studies for comparison. A/P 53yoF PMH of worsening resistant HTN (iso almost complete R renal stenosis), increased obesity (BMI 34), T1D, with subacute on chronic dyspnea including BEAN, PND, orthopnea, all c/w signs and symptoms of heart failure. In her case, she most likely has HFpEF given that stress test had EF 66% - although stress test is not the most reliable tool to obtain EF. She does not have TTE data for reliable LVEF. Regardless, signs and symptoms are consistent with worsening of clinical diagnosis of heart failure. Reassuringly, no EKG changes from prior, which makes ischemia unlikely as possible etiology. However, she has had intermittent chest discomfort and BEAN. HFpEF can usually be exacerbated iso worsening HTN. It would be worth it to evaluate reliable LVEF with TTE. In addition, she has gained at least 20 lbs in the past year - which does not seem to be fluid weight as she denies peripheral edema and no evident edema on exam. Furthermore, BG has been high and patient has inconsistent eating patterns and insulin use. - f/u NTproBNP - ordered but not drawn yet - Consider TTE - not ordered during this Urgent visit. - Treat HTN - as elsewehre. - Weight control, diabetes control - as elsewhere. Trigger finger 03/19/2023 04/29/2024 Assessment & Plan (03/19/2023 8:58 PM EST): Patient reports difficulty fully closing and opening her fingers, and demonstrates triggering of left ring finger, and right middle finger. Will refer to orthopedics. Abnormal Q waves on electrocardiogram 02/10/2023 04/29/2024 Slow transit constipation 10/09/2022 Assessment & Plan (11/27/2022 10:37 AM EDT): Constipation, hemorrhoids, bleeding x 1. [place] referral pending. Will ask supervisor instrument maintenance to help Assessment & Plan (10/09/2022 7:52 PM EDT): Pt reports constipated, has to push to defecate, had some bleeding x 1. Seems to be recurrent, as she asks for Miralax which has helped in the past. Last colonoscopy suboptimal prep, and they wanted early repeat, new referral entered. Arthralgia of right temporomandibular joint 10/09/2022 01/23/2024 Assessment & Plan (10/09/2022 7:47 PM EDT): Context of flare of longstanding headache, has some pain w/ chewing and clicking of jaw on R side. TMJ may be exacerbating pain. Discussed how to manage it, and handout given. Hay fever 09/04/2022 04/29/2024 Assessment & Plan (09/04/2022 3:35 PM EDT): Seasonal itching in throat, eyes, nose, asthma worse after walking outside. Exam benign. [place] loratadine 1-2 times a day prn. Visual changes 10/01/2021 04/29/2024 Overview (11/27/2022): RPE (retinal pigment epithelial) changes. NS (cataracts) Refractive error Photophobia Assessment & Plan (11/27/2022 10:37 AM EDT): Photophobia, see sep entry Assessment & Plan (10/03/2021 1:33 PM EDT): Recently complained of blurry vision. Findings as noted above. Later reported, and confirms today, vision better w/ new glasses. No DR noted Palpitations 06/04/2021 01/23/2024 Assessment & Plan (02/06/2022 1:49 PM EDT): Pt had zio patch monitor to evaluate palpitations. The tracing was normal, and patient reported no sx. Suspect anxiety related. Reviewed. Assessment & Plan (10/03/2021 1:32 PM EDT): Patch monitor now requested x 2. Reportedly they have changed their procedure. Ordered a third time, now at [facility]. Assessment & Plan (06/04/2021 6:50 PM EST): Patch monitor ordered 01/24/21, never arrived, will ask staff to facilitate Abdominal bloating 02/08/2021 Assessment & Plan (03/24/2021 10:30 AM EST): She recently came for an urgent visit stating the bulges on her abdomen were asymmetrical. She had a benign exam with distribution of fat that may have been asymmetrical due to past surgical incisions. Abdo u/s is pending. Assessment & Plan (02/08/2021 10:09 AM EDT): L side of pannus sl larger than R Reassuring hx and exam ?difference r/t fat distrubution, reassurance given Will check abd US to exam for hernia or gas or SQ changes. Reviewed red flags and when to call or rtc, pt verbalized understanding RTC for already scheduled f/u w pcp or sooner prn COVID-19 04/09/2020 06/07/2020 Assessment & Plan (04/09/2020 12:44 PM EST): Asked to call pt about her positive COVID test. I called and left a msg. Called another number, and it was Jamal's number. He said she had the tet on 04/05 or on 04/07, all are asymptomatic. They have enough food for a 10 days quarantine. He says pt's phone , and he will give her the msg that I called History of hypertension 01/17/201908/12 Overview (06/04/2021): Years of high BP. It resolved after she lost a lot of weight through improved diet, and her BP meds were stopped. Assessment & Plan (02/05/2022 9:06 AM EDT): She recently had a high BP reading, at the time for a pain appt. Assessment & Plan (10/03/2021 1:36 PM EDT): She had told me previously she had stopped all her BP meds, but later called w/ dizziness and low BP, and was continuing to take losartan 25 mg. At that time was advised to reduce dose to 12.5 mg daily. She continues to take this. Explained that BP remains low, and if too low, puts her at risk for fainting and falling, and to stop the losartan Assessment & Plan (06/04/2021 6:35 PM EST): HTN resolved after she lost a lot of weight intentionally. She stopped her losartan b/o low BP. Assessment & Plan (03/26/2021 10:06 AM EST): Some clinic BPs have been low lately, on losartan 50 mg qd. She was mildly azotemic on recent labs. Improved on repeat, which I rev'd w/ her in detail. Will reduce losartan to 25 mg qd. Probably BP has come down due to wt loss, and is lower than it needs to be Assessment & Plan (12/14/2020 12:51 PM EDT): BP controlled today. Continue same meds Assessment & Plan (06/07/2020 10:39 AM EST): BP controlled today. Continue same meds Assessment & Plan (09/22/2019 3:25 PM EDT): Lately home BPs 150s-160s Increase losartan to 50 mg qd Med reconciliation shows a recent rx for amlodipine, but she says she is not taking it, unclear how it got onto the med list in that case Assessment & Plan (05/25/2019 5:13 PM EST): Pt states at home after 1/2 hour rest this morning 152/90 Rx losartan 25 mg qd Assessment & Plan (05/23/2019 1:58 PM EST): She has a high BP today, and may be high at times at home. Jamal does not let her settle down before he checks it, discussed proper measurement of BP and he will get back to me Thayer's esophagus without dysplasia 10/04/2018 04/29/2024 Overview (09/22/2019): 2014. 2018 showed normal esophagus, Thayer's felt to have resolved due to chronic use of PPI. Assessment & Plan (09/22/2019 3:23 PM EDT): Thayer's felt to have resolved on 2019 EGD, so will leave this as a problem to remind us that she should keep taking the PPI Assessment & Plan (10/04/2018 3:45 PM EDT): Upper abdo pain, overdue for EGD, will request EGD. A bunch of preop labs req'd by the system Hypertension 03/18/2018 03/18/2018 Dizziness and giddiness 11/20/2016 04/0 11/2018 Assessment & Plan (03/18/2018 12:25 PM EST): Feels lightheaded upon arising. D/C flexeril Cut gabapentin to 300 mg tid Cut Basaglar insulin to 60 u b/c sugars are low. Stand up slowly. Resolved HTN problem Assessment & Plan (11/20/2016 5:19 PM EDT): Long hx of dizziness w/ position changes. It lasts a split second and disappears. She has not vomited or fallen related to this. Suspect mild BPPV or orthostasis related to meds. Would just move a little more slowly when going to stand up. Urinary incontinence 04/22/2016 025 Overview (11/20/2016): Primarily nocturnal enuresis. Urogyn mixed UI w/ more prominent urgency. Much improved w/ reducing fluid intake and doing pelvic floor exercises Assessment & Plan (09/04/2022 3:30 PM EDT): She saw urogyn. They told her some lifestyle changes, to keep a voiding record, and rx solfenacin. She says this has improved. Assessment & Plan (06/11/2022 9:45 PM EST): urogyn appt this morning. Assessment & Plan (05/25/2022 7:07 PM EST): urogyn appt is pending Assessment & Plan (04/03/2022 5:17 PM EST): Now using pullups when she goes out and at night, and is quite pleased she no longer soils herself or the bed. Assessment & Plan (02/10/2022 3:57 PM EDT): She continues to have nocturnal enuresis, awakening soaked, and leaks while walking the dog. This is longstanding. She would benefit from pullups. She has as noted, nocturnal enuresis and daily incontinence likely related to pelvic floor trauma due to multiple vaginal births. She is ambulatory and is able to pull the brief on and off without assistance. 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 Dx mixed UI, mostly urgency. Recommended bladder training, take less fluids. Recommended PUS to check internal organs - has appt for this. Recommended anticholinergic agent. At this time, she is working hard to cut fluid and stop coffee, and feels she has had some improvement. This was emphasized w/ her/ Assessment & Plan (04/22/2016 1:12 PM EST): Reviewed. Has urogyn appt coming up Vasovagal syncope 01/17/2016 10/04/2018 Overview (01/17/2016): One episode spontaneous syncope 2015, Holter negative, even w/ various sx such as dizziness and palpitations. Suspect vasovagal or related to heat and BP lowering meds. Assessment & Plan (10/04/2018 3:41 PM EDT): This has not happened before or since, so will resolve this problem Assessment & Plan (01/17/2016 6:26 PM EDT): Rev'd results w/ pt and son. No other w/u for now unless recurs. Lymphocytosis 10/16/2015 10/16/2015 Lymphocytosis 10/16/2015 04/29/2024 Overview (01/17/2016): Long hx minor intermittent elevations of total lymphocyte count in 1178-3935 range. 2016 flow cytometry does not suggest lymphoproliferative syndrome Assessment & Plan (09/03/2022 8:19 PM EDT): Update CBC, diff Assessment & Plan (06/11/2022 9:43 PM EST): Lab update. Perhaps due to smoking? Assessment & Plan (10/01/2021 12:07 AM EDT): Stable, mild last check. Assessment & Plan (07/21/2016 5:20 PM EDT): Long hx lymphocytosis. Pt again requests to discuss and review her hematologic data and conclusions. Seems to have intermittent mild lymphocytosis w/ benign prognosis for at least 20 years. Pt advised. Assessment & Plan (04/22/2016 1:16 PM EST): Reviewed results w/ pt and family. Recheck CBC, diff Assessment & Plan (01/17/2016 6:20 PM EDT): Rev'd flow cytometry neg result w/ pt Assessment & Plan (12/11/2015 12:46 PM EDT): Stable for years, but no w/u. Requested flow cytometry to r/o CLL Assessment & Plan (10/16/2015 3:01 PM EDT): Reviewed. This has been going on for a long time, even after she cut back on smoking. She may well have very early stable CLL. Doubt the skin macules are related at this level. We should do flow cytometry w/ her next labs TMJ pain dysfunction syndrome 07/16/2015 09/04/2022 Overview (07/16/2015): Left Assessment & Plan (07/16/2015 3:24 PM EDT): Seen recently for L earache, dx TMJ sx. Doing conservative tx recommended. She still has discomfort. We did not focus on this pain specifically today, as there are multiple issues, and it is not her chief complaint. We can address at later date, should it become more bothersome for her. Abdominal pain 07/16/2015 07/19/2018 Assessment & Plan (07/16/2015 3:50 PM EDT): Recently pt reported RUQ pain. Exam, LFTs, u/s normal. She reports this pain continues, and is worse in the evening. At the end of the visit, on the way out, she reported lower abdominal pain. This is longstanding, and she was agreeable to addressing it specifically another time. Bilateral carpal tunnel syndrome 07/15/2015 04/29/2024 Overview (05/25/2022): Surgery remote past R, subsequent EMG shows ongoing median nerve impingement. Surgery 2013 L. 2022 - EMG normal Assessment & Plan (09/04/2022 3:30 PM EDT): As of last visit, was planning injections w/ PMR, though I don't see it in their recent note. She says she has postponed this, and will get to it later. Assessment & Plan (05/25/2022 7:06 PM EST): Saw Ortho Hand recently w/ various hand pains. They thought it was due to median nerve impingement. She had the EMG and it was normal, and did not show any nerve impingement. Assessment & Plan (02/06/2022 1:53 PM EDT): Complained of sx refractory to splinting, so went to ortho hand. They did an xray, continued to recommend splinting, and ordered EMG. EMG not completed at this time. She wants another opinion from an orthopedist in [place]. I requested Dr Bennett Rahman. Staff asked to schedule the EMG ordered by Ortho in [place]. Assessment & Plan (10/03/2021 1:34 PM EDT): Sx and signs of R median nerve impingement last time, given splints. She says they did not help, and she continues bilat numb hands. Discussed, ortho hand referral Assessment & Plan (06/04/2021 6:42 PM EST): All 5 fingers on her R hand feel numb. Mikey's sign positive. She also has pain and tenderness in her upper arm and elbow. This may be radiation due to CTS or could be separate OA. Given wrist splint and instructed how to use it (she says when they cleaned out the house, they threw the old ones away) Assessment & Plan (07/19/2018 5:45 PM EDT): Had ulnar nerve elbow sx. Did not keep appt for OT at [facility]. Defer unless sx persist Assessment & Plan (03/18/2018 12:22 PM EST): She has paresthesias throughout her forearms and hands, more when elbows are flexed. Past median nerve impingement. EMG in 2012 showed normal ulnar conduction. At this stage, sounds like ulnar impingement at the elbows. Referred to OT [facility] in [place] initially, could repeat EMG / ortho hand if nec. Assessment & Plan (02/03/2018 5:04 PM EDT): Numbness both arms below the elbow and entire hand bilat. Months duration. Occurs when elbows are bent. Could be recurrent median nerve impingement or ulnar nerve at elbow. Discussed. Has wrist splints. Should use them for now, and should try to keep elbows extended when resting. Eval further next appt Assessment & Plan (07/16/2015 3:26 PM EDT): Reviewed. Pt has carpal tunnel sx only on R at this time, states different from her wrist tendinitis pain, and her bilateral neuropathy pain. Anemia, unspecified type 07/15/201503/2023 Overview (07/15/2015): Intermittent anemia w/ chronic microcytosis and normal hemoglobin electrophoresis. Other labs to evaluate for causes of anemia are normal. Assessment & Plan (05/25/2022 7:03 PM EST): This issue has resolved. Assessment & Plan (10/01/2021 12:07 AM EDT): Not anemic, and neg anemia w/u last check Assessment & Plan (06/04/2021 6:34 PM EST): She was supposed to do anemia labs, but didn't. She has been anemic off and on for a long time. Today she looks pale, so will reorder these labs. Assessment & Plan (03/26/2021 10:03 AM EST): I had requested f/u labs today (CBC, B12, Fe), but she already had labs drawn for something else, so will do next time Communication impairment 01/03/2015 Overview (07/15/2015): patient prefers to communicate w/ clinicians through her family member. The content of her communications may be impacted by bipolar / mental health condition. Abnormal results of liver function studies 06/26/2010 07/15/2015 Overview (06/03/2014): Liver function tests abnormal; w/u c/w NAFLD, otherwise negative Carpal tunnel syndrome 11/13/200907/14 Overview (06/03/2014): Carpal tunnel syndrome; surgery bilateral. Smoker 08/10/2002 04/11/2003 Overview (06/03/2014): smoking Gastroesophageal reflux disease 08/10/2002 01/23/2024 Overview (07/15/2015): 10/25 EGD reflux esophagitis, but biopsies neg for squamous metaplasia and H. Pylori. Recommend ongoing bid PPI. Assessment & Plan (01/17/2019 5:06 PM EDT): She continues prandial abdo discomfort. At this time eval is negative, advised nothing dangerous or tratable found to explain sx. Assessment & Plan (11/20/2016 5:05 PM EDT): Complains of 1 month dysphagia to liquids and even oral secretions. Son says difficulty only if she talks and eats at the same time. No coughing or diff managing secretions noted today. Voice quality is good. I am not terribly worried based on this presentation, but requested video swallowing study (not sure I did it correctly). Assessment & Plan (10/16/2015 2:41 PM EDT): Pt asks about when next EGD is due. Reviewed record. Last year had no signs of Thayer's. I think if she continues to have little sx, continues UGI med, stops smoking and can continue to control her weight, we can monitor w/o further procedures. We might try reducing her med in the future. If sx recur or become intractable, could repeat scope. Sprain of ankle 08/10/2002 07/15/2015 Overview (06/03/2014): Sprained ankle Personal history of tuberculosis 02/22/2001 04/29/2024 Overview (07/15/2015): treated 1999 Encounters Date Type Department Care Team Description 05/10/2024 11:44 AM EST - 05/10/2024 11:59 PM EST Hospital Encounter [facility] LAB [id number] [address] [place] [address] Discharge Disposition: Home or Self Care 05/09/2024 Telephone [facility] [address] [place] [address] Omaira Pearson RN 05/04/2024 [facility] [address] [facility] [address] [place] [address] Praveen Ball MD 05/04/2024 Orders Only [facility] [address] [place] [address] Alex Parks MD Mild intermittent asthma without complication (Primary Dx) 05/04/2024 Orders Only [facility] [address] [address] Praveen Ball MD YURY (acute kidney injury) (Primary Dx) 05/04/2024 Refill [facility] [address] [place] [address] Kaylynn Alvares LPN Medication Refill 05/04/2024 Refill [facility] [address] [place] [address] Kaylynn Alvares LPN Medication Refill 05/03/2024 12:07 PM EST - 05/03/2024 11:59 PM EST Hospital Encounter [facility] [id number] [place] [address] Heather Maddox MD, MPH Discharge Disposition: Home or Self Care 05/03/2024 10:40 AM EST Office Visit [facility] ([facility]) [address] [place] [address] Praveen Ball MD Stage 3b chronic kidney disease (Primary Dx); Benign essential hypertension; Resistant hypertension 05/03/2024 Refill [facility] [address] [place] [address] Kaylynn Alvares LPN Medication Refill 05/03/2024 Refill [facility] [address] [place] [address] Kaylynn Alvares LPN Medication Refill 04/30/2024 Refill [facility] [address] [place] [address] Mckayla Gregg MD Medication Refill 04/29/2024 11:00 AM EST Office Visit [facility] [address] [place] [address] Mckayla Gregg MD Acute bronchitis, unspecified organism (Primary Dx); Renovascular hypertension; Routine health maintenance; Hypertension; Nasal congestion; Chronic tension-type headache, not intractable; Diffuse pain; Type 1 diabetes mellitus with diabetic polyneuropathy; Chronic nonintractable headache, unspecified headache type; Slow transit constipation; Mild intermittent asthma without complication; Hay fever; Chronic bilateral low back pain with left-sided sciatica; Familial hypercholesterolemi a; Rash and other nonspecific skin eruption 04/29/2024 Refill [facility] [address] [place] [address] Kaylynn Alvares LPN Medication Refill 04/29/2024 Telephone [facility] [address] [place] [address] Alex Parks MD Medication Problem 04/29/2024 Refill [facility] [address] [place] [address] Allyn Rosales LPN Medication Refill 04/29/2024 Orders Only [facility] [address] [place] [address] Alex Parks MD 04/10/2024 Orders Only [facility], [address] [address] Eber Calle, DPDianne Diabetic polyneuropathy associated with type 2 diabetes mellitus 04/05/2024 Refill [facility] [address] [place] [address] Alex Parks MD Medication Refill 03/24/2024 Refill [facility] [address] [place] [address] Mckayla Gregg MD Medication Refill 03/19/2024 4:49 PM EST - 03/19/2024 11:59 PM EST Hospital Encounter [facility] [address] [place] [address] Eber Calle, DPM Discharge Disposition: Home or Self Care 03/17/2024 Documentation [facility] [address] [place] [address] Alex Parks MD 03/04/2024 1:47 PM EST - 03/04/2024 11:59 PM EST Hospital Encounter [facility] PLASTER ROOM [address] [place] [address] Eber Calle, DPM Discharge Disposition: Home or Self Care 03/04/2024 1:10 PM EST - 03/04/2024 1:46 PM EST Hospital Encounter [facility] Imaging - Xray, [place] [address] [place] [address] [place] [address] Eber Calle, DPM Discharge Disposition: Home or Self Care 03/04/2024 1:00 PM EST Office Visit [facility] Department of Orthopaedic Surgery, Podiatry Service [address] [address] Eber Calle, DPM Pain of left foot (Primary Dx); Pain of finger of right hand; Onychauxis; Pain in toes of both feet 03/04/2024 Procedure Pass MRI, [facility] [address] [place] [address] 03/04/2024 Refill [facility] [address] [place] [address] Alex Parks MD Medication Refill 03/04/2024 Refill [facility] [address] [place] [address] Alex Parks MD Medication Refill 03/04/2024 Orders Only [facility] Department of Orthopaedic Surgery, Foot & Ankle Service [address] [address] Peri Howe [place] Pain of left foot (Primary Dx) 03/02/2024 Telephone [facility] Medicine [address] [place] [address] Mckayla Gregg MD WAIST PLEATER Letter 02/24/2024 10:55 AM EST - 02/24/2024 11:59 PM EST Hospital Encounter [facility] [address] [place] [address] Zeeshan Guillermo PA-C Discharge Disposition: Home or Self Care 02/24/2024 Refill [facility] [place] [address] Yojana Peterson, DNP, BEVERAGE SERVER - C Medication Refill 02/18/2024 Documentation [facility] [address] [place] [address] Mckayla Gregg MD 02/02/2024 Procedure Pass [facility] [address] [place] [address] from Last 3 Months Immunizations Name Administration Dates Next Due COVID-19 (Pre-02/02) Moderna Vaccine, Bivalent 6mo+ 01/22/2022 COVID-19 (Pre-02/02) Moderna Vaccine, mRNA, PF 07/11/2020,06/13/2020 Hepatitis B, unspecified formulation 09/25/2010, 04/19/2010,03/20/2010 Influenza Quadrivalent MDCK Preservative Free IM 02/08/2023,01/22/2022 Influenza Quadrivalent Prese rvative Free IM 01/22/2022,03/26/2021,12/01/2019,01/17,03/18/2018,03/23/2017,01/17/2016 ,02/23/2014 Influenza Trivalent Preserva tive Free IM 01/06/2012,12/17/2011 Influenza Trivalent w/ Preservative IM 3 Influenza, Unspecified Formulation 12/13/2010,,04/22/2004 MMR 09/02/2012,07/01/2012 Pneumococcal polysaccharide PPSV23 01/15/2010, Td, unspecified formulation 10/19/2003 Tdap 02/10/2023,07/25/2010 Varicella 04/28/2012(Deferred: Other - , Ordered By: [id number]) Zoster recombinant 11/27/2020,05/12/2020 Family History Medical History Relation Comments Heart attack Father Hypertension Father hypertension ; a lso had some kind of unknown heart problem Depression Mother Hypertension Mother hypertension ; a lso had some kind of unknown heart problem Kidney failure Mother Psoriasis Mother Rheumatoid arthritis Mother Rheumatoid arthritis Type 1 Diabetes Mother Diabetes mellitu s type 1 Breast cancer Paternal Aunt breast cancer Ovarian cancer Paternal Aunt Relation Status Comments Father Mother Paternal Aunt Social History Tobacco Use Types Packs/Day Years Used Date Smoking Tobacco: Every Day Cigarettes 0.3 38.1 Started: 1986 Smokeless Tobacco: Never Tobacco Cessation:Ready to Q uit: Not Asked; Counseling Given: Not Answered Comments:1 pack every 2 days Alcohol Use [...] Orientation Straight 10/22/2018 9: 40 AM EDT Last Filed Vital Signs Vital Sign Reading Time Taken Comments Blood Pressure 109/74 05/03/2024 11:07 AM EST Pulse 79 05/03/2024 11:07 AM EST Temperature 36 ??C (96.8 ??F) 04/29/2024 10:55 AM EST Respiratory Rate 20 10/21/2023 3:00 PM EDT Oxygen Saturation 96% 05/03/2024 11:07 AM EST Inhaled Oxygen Concentration - - Weight 80.7 kg (178 lb) 05/03/2024 11:07 AM EST Height 154.9 cm (5' 0.98 ) 02/24/2024 10:[address] Body Mass Index 33.65 02/24/2024 10:57 AM EST Plan of Treatment Upcoming Encounters Date Type Department Care Team (Late st Contact Info) Description 11/25/[address] [address] [place] [address] 01/22/2024 Procedure Pass [facility] Breast [facility] [address] [place] [address] 06/17/2024 10:40 AM EST Office Visit [address] [address] Reza Early MD [address] [place] [address] [email or web address] 06/17/2024 1:15 PM EST Appointment [facility] [address] [place] [address] Heather Maddox MD, MPH [address] [place] [phone] [email or web address] 07/01/2024 11:15 AM EDT Office Visit [facility] Department of Orthopaedic Surgery, Podiatry Service [address] [place] [address] Eber Calle, DPDianne [address] [place] [address] [email or web address] 08/01/2024 2:20 PM EDT Office Visit [facility] [address] [address] Jaret Clemons MD 243 [facility] [place] [address] [email or web address] 08/09/2024 2:30 PM EDT Appointment [facility] [address] [place] [address] Mckayla Gregg MD [address] [place] [address] [email or web address] 11/24/2024 8:[address] [address] [place] [address] Monet Carranza MD, PhD [address] [place] [address] [email or web address] 11/29/2024 9:40 AM EDT Office Visit [facility] ([facility]) [address] [place] [address] Praveen Ball MD [address] [employer] [address] [place] [address] [email or web address] Health Maintenance Due Date Last Done Comments COLOGUARD 2014 FIT TEST 2014 FOBT 2014 SIGMOIDOSCOPY 2014 VIRTUAL COLONOSCOPY 2014 COVID-19 VACCINE ( season) 2023 02/08/2023, 01/22/2022, 02/13/2021, Additional history exists MAMMOGRAM 2024 2022, 04/14, 04/16/2019, Additional history exists REPEAT PHQ 05/30/2024 04/29/2024, 04/29/2024 COLONOSCOPY 06/12/2024 06/13/2019, 06/13/2019 COLORECTAL CANCER SCREENING 06/12/2024 HEMOGLOBIN A1C 07/22/2024 01/22/2024, 07/0 06/2023, 05/27/2023, Additional history exists DIABETIC EYE EXAM 07/30/2024 07/31/2023, , 07/31/2023, Additional history exists LIPID PANEL 10/13/2024 10/14/2023, 08/12, 06/04/2021, Additional history exists BLOOD PRESSURE 10/31/2024 05/03/2024 PNEUMOCOCCAL VACCINES (50+ years) (2 of 2 - PCV) 02/24/2025 02/25/2024, 01/15/2010, 09/16/2004 DEPRESSION SCREENING 04/29/2025 04/29/2024, 04/29/19 25 SMOKING Hx and SMOKELESS TOBACCO SCREENING 04/29/2025 04/29/2024 CREATININE LEVEL 05/10/2025 05/10/2024, , 01/22/2024, Additional history exists POTASSIUM LEVEL 05/10/2025 05/10/2024, 04/14, 01/22/2024, Additional history exists Adult Td,Tdap Booster 02/10/2033 02/10/2023 , 07/25/2010, 10/19/2003 HIV ONE-TIME SCREENING (18-65 YEARS) Completed 11/13/2009, 09/07/2002, 05/18/2000, Additional history exists HEPATITIS B SCREENING Completed 05/24/2010 HEPATITIS C SCREENING Completed 05/24/2010, 011 ZOSTER VACCINES Completed 06/26/2023, 11/11, 05/12/2020 INFLUENZA VACCINE Completed 12/21/2023, , 01/22/2022, Additional history exists HEPATITIS A VACCINES Aged Out No long er eligible based on patient's age to complete this topic HIB VACCINES Aged Out No longer eligi ble based on patient's age to complete this topic MENINGOCOCCAL VACCINES (ACWY) Aged Out No longer eligible based on patient's age to complete this topic Medical Devices Not on file Procedures Procedure Name Priority Date/Time Associated Diagnosis Comments BASIC METABOLIC PANEL Routine 05/10/2024 11:45 AM EST YURY (acute kidney injury) XR CHEST PA AND LATERAL 2 VIEWS Routine 05/03/2024 12:15 PM EST Acute bronchitis, unspecified organism BASIC METABOLIC PANEL Routine 05/03/2024 11:42 AM EST Stage 3b chronic kidney disease Benign essential hypertension Resistant hypertension CBC Routine 05/03/2024 11:42 AM EST Stage 3b chronic kidney disease Benign essential hypertension Resistant hypertension MRI FOOT WITHOUT CONTRAST (LEFT) Routine 03/19/2024 5:46 PM EST Pain of left foot XR FOOT 3 OR MORE VIEWS (LEFT) Routine 03/04/2024 1:15 PM EST Pain of left foot MRI LUMBAR SPINE (BONE) WITHOUT CONTRAST Routine 02/24/2024 11:29 AM EST Lumbar pain Spondylosis Lumbar herniated disc Radiculitis HEMOGLOBIN A1C Routine 01/22/2024 12:53 PM EDT Type 1 diabetes mellitus with diabetic polyneuropathy LIPID PANEL Routine 10/14/2023 5:05 PM EDT Familial hypercholesterolemia BI MAMMOGRAM SCREENING WITH TOMOSYNTHESIS WITH CAD (BILATERAL) Routine 2022 2:48 PM EST Health care maintenance ENDOSCOPY, COLON 06/13/2019 10:29 AM EST HISTORICAL LAB Routine 05/24/2010 4:28 PM EST from Last 3 Months or Most Recently Relevant to Health Maintenance Results * (ABNORMAL) Basic metabolic panel (05/10/2024 11:45 AM EST) Only the most recent of2 resultswithin the time period is included. SODIUM 139 135 - 145 mmol/L [facility] POTASSIUM 4.5 3.4 - 5.0 mmol/L [facility] CHLORIDE 107 98 - 108 mmol/L [facility] CO2 24 23 - 32 mmol/L [facility] BUN 24 8 - 25 mg/dL [facility] CREATININE 1.71(H) 0.50 - 1.00 mg/dL [facility] GLUCOSE 107 70 - 110 mg/dL [facility] CALCIUM 9.2 8.5 - 10.5 mg/dL [facility] EGFR 35(L) >59 mL/min/1.7 3m2 [facility] Comment:Estimated glomerular filtration rate calculated using the CKD-EPI refit equation. ANION GAP 8 3 - 17 mmol/L [facility] 05/10/2024 11:4 5 AM EST 05/10/2024 12:07 PM EST Praveen Ball MD LAB BLOO D ORDERABLES [address] [place] [address] * XR CHEST PA AND LATERAL 2 VIEWS (05/03/2024 12:15 PM EST) Anatomical Region Laterality Modality Chest Radiographic Nancy ging 05/03/2024 1:58 PM EST Impressions 05/03/2024 2:04 PM EST Mild right basilar opacity most consistent with atelectasis. In the proper clinical setting, a small focus of superimposed pneumonia may be present. RECOMMENDATION: Consider follow-up radiograph in 10-12 weeks to assess clearing. Narrative 05/03/2024 2:04 PM EST XR CHEST PA AND LATERAL 2 VIEWS Referring clinician's provided indication for this examination in [facility]: Cough COMPARISON: CT CHEST (INCIDENTAL FOLLOW-UP) WITHOUT CONTRAST FINDINGS: Devices/Tubes/Lines: None. Lungs: Opacity is at the right lung base. The left lung is free of consolidation. No pulmonary edema is present. Pleura: No pleural effusion or pneumothorax. Heart/Mediastinum: Unchanged. Bones/Soft Tissues: Unchanged. Procedure Note Jeromy Jauregui MD - 05/03/2024 XR CHEST PA AND LATERAL 2 VIEWS Referring clinician's provided indication for this examination in [facility]:Cough COMPARISON: CT CHEST (INCIDENTAL FOLLOW-UP) WITHOUT CONTRAST FINDINGS: Devices/Tubes/Lines: None. Lungs: Opacity is at the right lung base. The left lung is free ofconsolidation. No pulmonary edema is present. Pleura: No pleural effusion or pneumothorax. Heart/Mediastinum: Unchanged. Bones/Soft Tissues: Unchanged. IMPRESSION: Mild right basilar opacity most consistent with atelectasis. In the properclinical setting, a small focus of superimposed pneumonia may bepresent. RECOMMENDATION: Consider follow-up radiograph in 10-12 weeks to assess clearing. Heather Maddox MD, MPH IMG XR CHEST * (ABNORMAL) CBC (05/03/2024 11:42 AM EST) WBC 12.42(H) 4.00 - 11.00 K/uL [facility] RBC 4.43 4.00 - 5.20 M/uL [facility] HGB 11.0(L) 12.0 - 16.0 g/dL [facility] HCT 36.2 36.0 - 46.0 % [facility] PLT 255 150 - 450 K/uL [facility] MCV 81.7 80.0 - 100.0 fL [facility] MCH 24.8(L) 27.0 - 31.0 pg [facility] MCHC 30.4(L) 32.0 - 36.0 g/dL [facility] RDW 13.7 11.5 - 14.5 % [facility] MPV 9.8 8.4 - 12.0 fL [facility] NRBC 0.00 0.00 /100 WBCs [facility] ABSOLUTE NRBC 0.00 0.00 K/uL [facility] Blood 05/03/2024 11:4 2 AM EST 05/03/2024 12:45 PM EST Praveen Ball MD LAB BLOO D ORDERABLES Performing Organization Address City/State/[facility] Co de Phone Number [address] [address] * MRI FOOT WITHOUT CONTRAST (LEFT) (03/19/2024 5:46 PM EST) Anatomical Region Laterality Modality Foot Left Magnetic Resonan ce 03/22/2024 1:51 PM EST Impressions 03/22/2024 2:08 PM EST Visualized distal portions of the peroneal tendons appear intact. No evidence of acute injury. Narrative 03/22/2024 2:08 PM EST MRI FOOT WITHOUT CONTRAST (LEFT) Referring clinician's provided indication for this examination in Epic: * Foot pain, chronic, tendinopathy suspected, xray done; pain at 5th met base and peroneal tendon TECHNIQUE: Multi-sequence, multi-planar MRI of the foot without intravenous contrast. COMPARISON: XR FOOT 3 OR MORE VIEWS (LEFT) FINDINGS: Patient motion related artifacts resulting in image degradation. Skin marker present along the plantar-lateral aspect of the Bone: Brachymetatarsia noted in the fourth ray. No bone marrow edema, fracture, osteonecrosis, or focal lesion. Joints: Normal. No effusion or synovitis. No subchondral edema. Soft tissues: No soft tissue mass or fluid collection. Ligaments and tendons are intact. Procedure Note Gallo Garcia MD - 03/22/2024 MRI FOOT WITHOUT CONTRAST (LEFT) Referring clinician's provided indication for this examination in [facility]: *Foot pain, chronic, tendinopathy suspected, xray done; pain at 5th metbase and peroneal tendon TECHNIQUE: Multi-sequence, multi-planar MRI of the foot withoutintravenous contrast. COMPARISON: XR FOOT 3 OR MORE VIEWS (LEFT) FINDINGS: Patient motion related artifacts resulting in image degradation. Skin marker present along the plantar-lateral aspect of the Bone: Brachymetatarsia noted in the fourth ray. No bone marrow edema,fracture, osteonecrosis, or focal lesion. Joints: Normal. No effusion or synovitis. No subchondral edema. Soft tissues: No soft tissue mass or fluid collection. Ligaments andtendons are intact. IMPRESSION: Visualized distal portions of the peroneal tendons appear intact. No evidence of acute injury. Eber Calle Dianne [facility] [place] EXTREMITY * XR FOOT 3 OR MORE VIEWS (LEFT) (03/04/2024 1:15 PM EST) Anatomical Region Laterality Modality Foot Left Computed Radiogr aphy 03/04/2024 3:05 PM EST Impressions 03/04/2024 3:22 PM EST No acute osseous abnormality. Narrative 03/04/2024 3:22 PM EST XR FOOT 3 OR MORE VIEWS (LEFT) Referring clinician's provided indication for this examination in [facility]: Pain; Pain at 5th met base COMPARISON: None FINDINGS: No acute fracture. Shortened appearance of the 4th metatarsal shaft. Alignment of the midfoot is not well evaluated on nonweightbearing films. Alignment is otherwise normal. Mild degenerative changes of the interphalangeal joints and 1st metatarsophalangeal joint. Achilles tendon enthesophyte and plantar calcaneal spur. Procedure Note Trino Guaman MD, PhD - 03/04/2024 XR FOOT 3 OR MORE VIEWS (LEFT) Referring clinician's provided indication for this examination in [facility]:Pain; Pain at 5th met base COMPARISON: None FINDINGS: No acute fracture. Shortened appearance of the 4th metatarsal shaft.Alignment of the midfoot is not well evaluated on nonweightbearing films.Alignment is otherwise normal. Mild degenerative changes of theinterphalangeal joints and 1st metatarsophalangeal joint. Achilles tendonenthesophyte and plantar calcaneal spur. IMPRESSION: No acute osseous abnormality. Eber Calle DPDianne IMG XR LOWER EXTREMI TY * MRI LUMBAR SPINE (BONE) WITHOUT CONTRAST (02/24/2024 11:29 AM EST) Anatomical Region Laterality Modality L-spine Magnetic Resonan ce 02/24/2024 12:4 5 PM EST Impressions 02/24/2024 5:20 PM EST Multilevel degenerative changes of the lumbar spine, most pronounced at the L4-5 level where a diffuse disc bulge with small overlying disc extrusion with slight cranial migration of the disc material, progressed from prior MRI. Disc appears to abut the descending bilateral L5 nerve roots. Mild narrowing of the bilateral lateral recesses. Similar mild bilateral neural foraminal narrowing at that level. No associated spinal stenosis at the L4-L5 level. Narrative 02/24/2024 5:20 PM EST MRI LUMBAR SPINE (BONE) WITHOUT CONTRAST Referring clinician's provided indication for this examination in [facility]: * Low back pain, > 6 wks; * Lumbar radiculopathy, > 6 wks; Chronic progressive low back pain with right lower extremity radiculitis and subjective right leg weakness TECHNIQUE: MRI LUMBAR SPINE (BONE) WITHOUT CONTRAST Multi-sequence, multi-planar MRI of the lumbar spine was performed without intravenous contrast. COMPARISON: MRI LUMBAR SPINE (NEURO) WITHOUT CONTRAST FINDINGS: LUMBAR SPINE: Alignment and Vertebrae: Grade 1 anterolisthesis of L4-L5. No compression fracture. Marrow: No suspicious bone marrow replacing lesion. Discs and Endplates: Scattered disc height loss and desiccation, mild to moderate at the L4-L5 level. Conus: Normal. Soft Tissues: No prevertebral edema. Other Findings: None. Findings by level: T12-L1: No spinal or foraminal stenosis. L1-L2: No spinal or foraminal stenosis. L2-L3: Trace disc bulge with small central protrusion. No spinal or foraminal stenosis. Findings are similar to prior MRI. L3-L4: Small disc bulge. Mild thickening of the ligamentum flavum. Minimal facet arthropathy. No spinal or foraminal stenosis. L4-L5: Diffuse disc bulge with small overlying disc extrusion with slight cranial migration of the disc material along the posteroinferior L4 vertebral body, progressed from prior MRI. Narrowing of the bilateral lateral recesses. Disc appears to abut the descending bilateral L5 nerve roots. Mild bilateral neural foraminal narrowing, similar to prior MRI. No spinal stenosis. L5-S1: Small disc bulge. Mild facet arthropathy. No spinal or foraminal stenosis. Findings are similar to prior MRI. Procedure Note Marce Burrell MD - 02/24/2024 MRI LUMBAR SPINE (BONE) WITHOUT CONTRAST Referring clinician's provided indication for this examination in Epic: *Low back pain, > 6 wks; * Lumbar radiculopathy, > 6 wks; Chronicprogressive low back pain with right lower extremity radiculitis andsubjective right leg weakness TECHNIQUE: MRI LUMBAR SPINE (BONE) WITHOUT CONTRAST Multi-sequence, multi-planar MRI of the lumbar spine was performed withoutintravenous contrast. COMPARISON: MRI LUMBAR SPINE (NEURO) WITHOUT CONTRAST FINDINGS: LUMBAR SPINE: Alignment and Vertebrae: Grade 1 anterolisthesis of L4-L5. No compressionfracture. Marrow: No suspicious bone marrow replacing lesion. Discs and Endplates: Scattered disc height loss and desiccation, mild tomoderate at the L4-L5 level. Conus: Normal. Soft Tissues: No prevertebral edema. Other Findings: None. Findings by level: T12-L1: No spinal or foraminal stenosis. L1-L2: No spinal or foraminal stenosis. L2-L3: Trace disc bulge with small central protrusion. No spinal orforaminal stenosis. Findings are similar to prior MRI. L3-L4: Small disc bulge. Mild thickening of the ligamentum flavum. Minimalfacet arthropathy. No spinal or foraminal stenosis. L4-L5: Diffuse disc bulge with small overlying disc extrusion with slightcranial migration of the disc material along the posteroinferior [id number] body, progressed from prior MRI. Narrowing of the bilaterallateral recesses. Disc appears to abut the descending bilateral L5 nerveroots. Mild bilateral neural foraminal narrowing, similar to prior MRI. Nospinal stenosis. L5-S1: Small disc bulge. Mild facet arthropathy. No spinal or foraminalstenosis. Findings are similar to prior MRI. IMPRESSION: Multilevel degenerative changes of the lumbar spine, most pronounced atthe L4-5 level where a diffuse disc bulge with small overlying discextrusion with slight cranial migration of the disc material, progressedfrom prior MRI. Disc appears to abut the descending bilateral L5 nerveroots. Mild narrowing of the bilateral lateral recesses. Similar mildbilateral neural foraminal narrowing at that level. No associated spinalstenosis at the L4-L5 level. Zeeshan Guillermo PA-C IMG MR XSPECIALTY * (ABNORMAL) Hemoglobin A1c (01/22/2024 12:53 PM EDT) HEMOGLOBIN A1C 7.0(H) 4.3 - 5.6 % [facility] Comment:HbA1c levels 5.7-6.4 % represent pre-diabetes, indicating impaired glucose control and an increased risk of developing diabetes compared with lower HbA1c levels. The diagnostic HbA1c level for diabetes is 6.5% or greater. CALC MEAN BLD GLUC 154 mg/dL [facility] Comment:There is no establis hed normal range for the Calculated Mean Blood Glucose (CMBG), however a HbA1c of 5.6% (upper limit of normal) represents a CMBG of 114 mg/dL. The diagnostic hemoglobin A1c level for diabetes is greater than or equal to 6.5% which represents a CMBG greater than or equal to 140 mg/dL. 01/22/2024 12:5 3 PM EDT 01/22/2024 12:59 PM EDT Sierra Barlow MD LAB BLOOD ORDERABLE S [facility] [address] [place] [address] * (ABNORMAL) Lipid panel (10/14/2023 5:05 PM EDT) HDL 40 35 - 100 mg/dL [facility] CHOLESTEROL 158 <200 mg/dL [facility] TRIGLYCERIDES 223(H) 40 - 150 mg/dL [facility] LDL 73 50 - 129 mg/dL [facility] CARDIAC RISK RATIO 4.0 0.0 - 5.0 [facility] NON-HDL CHOLESTEROL 118 mg/dL [facility] Comment:NCEP ATP III guideli richa suggest a non-HDL cholesterol goal 30 mg/dl higher than the patient-specific LDL goal. 10/14/2023 5:05 PM EDT 10/14/2023 5:24 PM EDT Sierra Barlow MD LAB BLOOD ORDERABLE S [facility] [address] [place] [address] * BI MAMMOGRAM SCREENING WITH TOMOSYNTHESIS WITH CAD (BILATERAL) (2022 2:48 PM EST) Anatomical Region Laterality Modality Breast Left, Breast Right, Breast Bilateral Bila teral Mammography 2022 Impressions 2022 3:42 PM EST There is no specific mammographic evidence of malignancy. BI-RADS Category 1: Negative Patient's information is entered into a reminder system with a target due date for the next mammogram. Narrative 2022 3:42 PM EST INDICATION FOR EXAM: Screening. PROCEDURE: The following standard mammographic and tomosynthesis views were obtained: craniocaudal and mediolateral oblique. Computer-aided detection was utilized by the radiologist in the interpretation of this examination. BILATERAL MAMMOGRAM: The present study is compared to previous imaging. There are scattered fibroglandular densities. No suspicious masses, calcifications or other abnormalities are seen in either breast. Procedure Note Carline Haney MD - 2022 INDICATION FOR EXAM: Screening. PROCEDURE: The following standard mammographic and tomosynthesis views were obtained:craniocaudal and mediolateral oblique. Computer-aided detection wasutilized by the radiologist in the interpretation of this examination. BILATERAL MAMMOGRAM: The present study is compared to previous imaging. There are scattered fibroglandular densities. No suspicious masses, calcifications or other abnormalities are seen ineither breast. IMPRESSION: There is no specific mammographic evidence of malignancy. BI-RADS Category 1: Negative Patient's information is entered into a reminder system with a target duedate for the next mammogram. Heather Maddox MD, MPH [facility] * ENDOSCOPY, COLON (06/13/2019 10:29 AM EST) 06/13/2019 10:2 9 AM EST Narrative Transcriptions Melonie Vega MD, MPH - 06/13/2019 10:29 AM EST Gastrointestinal Endoscopy Unit Patient Name: Brittany Weaver Exam Date: 06/13/2019 10:29 AM Date of : 1970 Admit Type: Outpatient Age: 49 Room: [place] [address] Gender: Female Note Status: Finalized Attending MD: Melonie Vega MD Procedure: Colonoscopy Indications: Screening for colorectal malignant neoplasm Providers: Melonie Vega MD Referring MD: Heather Maddox (Referring MD) Medicines: Midazolam 6 mg IV, Fentanyl 150 micrograms IV Complications: No immediate complications. Procedure: After obtaining informed consent, the endoscope was passed under direct vision. Throughout the procedure, the patient's blood pressure, pulse, and oxygen saturations were monitored continuously. The Colonoscope was introduced through the anus and advanced to the the cecum, identified by appendiceal orifice and ileocecal valve. The colonoscopy was performed without difficulty. The quality of the bowel preparation was fair. Findings: A 5 mm polyp was found in the ascending colon. The polyp was sessile. The polyp was removed with a cold biopsy forceps. Resection and retrieval were complete. A large amount of liquid stool was found in the entire colon, making visualization difficult. Lavage of the area was performed using copious amounts, resulting in clearance with fair visualization. Impression: - Preparation of the colon was fair. - One 5 mm polyp in the ascending colon, removed with a cold biopsy forceps. Resected and retrieved. - Stool in the entire examined colon. Recommendation: - Repeat colonoscopy in 3 years for surveillance and poor preparation. Attending Participation: I was personally present throughout the entire procedure. I was present from the first injection of medications for sedation and continuously for the administration and monitoring of sedation. The patient's sedation level was moderate. The patients post-sedation status at the end of the procedure was stable. MD Melonie Braswell MD, [id number] 06/13/2019 10:57:43 AM The attending physician was present throughout the entire procedure. Number of Addenda: 0 Note Initiated On: 06/13/2019 10:29 AM Heather Maddox MD, MPH GI PROCEDURE ORDER GURU * (ABNORMAL) Historical Lab (05/24/2010 4:28 PM EST) HBV Surface Ab,Qual Reactive [facility] HBV SURFACE ANTIGEN Negative [facility] Cholesterol 272 mg/dl [facility] Comment:DESIRABLE: <200 Creatine Kinase 109 40 - 150 U/L [facility] DIRECT LDL 209 mg/dL [facility] Comment:Reference range: <16 0 Iron 88 30 - 160 mcg/dl [facility] Iron Binding Capacity 284 230 - 404 mcg/dl [facility] HAV TOTAL AB Positive NEG [facility] Comment:Note: New method eff ective 05/15/2010. HAV IGM AB Negative NEG [facility] Comment:Note: New method eff ective 05/15/2010. HEP B CORE AB, TOT Negative NEG [facility] Comment:Note: New method eff ective 05/15/2010. HCV Antibody Non-Reactive [facility] High Density Lipoprotein 31(Abnormall y L) 35 - 100 mg/dl [facility] Albumin 4.1 3.3 - 5.0 g/dl [facility] Total Bilirubin 0.2 0.0 - 1.0 mg/dl [facility] Direct Bilirubin 0.1 0 - 0.4 mg/dl [facility] Alkaline Phosphatase 125(Abnormal ly H) 30 - 100 U/L [facility] Transaminase-SG OT 43(Abnormall y H) 9 - 32 U/L [facility] Transaminase-SG PT 52(Abnormall y H) 7 - 30 U/L [facility] Total Protein 6.9 6.0 - 8.3 g/dl [facility] Globulin 2.8 2.3 - 4.1 g/dl [facility] 05/24/2010 4:28 PM EST 05/24/2010 8:54 PM EST Comment:BLOOD Jaqui Carlson NP LAB BLOOD ORDERABLES [address] [address] from Last 3 Months or Most Recently Relevant to Health Maintenance Care Teams Broadband Technician Relationship Specialty Start Date End Date Alex Parks MD [address] [place] [phone] [email or web address]. [place] PCP - General Internal Medicine 03/13/23 Mckayla Gregg MD [address] [place] [address] [email or web address] PCP - Resident PCP Internal Medicine 06/03/23 Alex Parks MD [address] [place] [phone] [email or web address]. [place] Insurance Assigned Provider 07/18/23 Additional Source Comments The information contained in this document represents components of the legal health record. It is not the complete legal health record.[facility]
--- OUTSIDE RECORDS SUMMARY | 2024-05-20 02:40 | XMS_ITS | Encounter Summary ---
Author Organization [facility] Address [phone] Formerly [facility] [place] [address] Care Team Providers Care Surgical Asst Name Role Phone Alex Parks MD Primary Care Provider [phone]- [phone] Mckayla Gregg MD Unavailable [phone] Alex Parks MD Unavailable [phone] Reason for Visit * Reason Onset Date Comments Medication Refill 05/04/2024 Encounter Details Date Type Department Care Team (Late st Contact Info) Description 05/04/2024 Refill [facility] Adult Medicine [address] [place] [address] Kaylynn Alvares LPN [address] [place] [phone] [email or web address] Medication Refill Social History Tobacco Use Types [...] as of this encounter Progress Notes * Kaylynn Alvares LPN - 05/04/2024 12:44 PM EST Images from the original note were not included. documented in this encounter Plan of Treatment Upcoming Encounters Date Type Department Care Team (Late st Contact Info) Description 11/25/[address] [place] [address] [place] [address] 01/22/2024 Procedure Pass [facility] Breast Imaging [facility] [address] [place] [address] 06/17/2024 10:40 AM EST Office Visit [address] [address] Reza Early MD [address] [place] [address] [email or web address] 06/17/2024 1:15 PM EST Appointment [facility] Breast Imaging [facility] [address] [place] [address] Ade Ramos MD, MPH [address] [place] [address] Kavya@[email or web address] 07/01/2024 11:15 AM EDT Office Visit [facility] Department of Orthopaedic Surgery, Podiatry Service [address] [address] Eber Calle, DPM [address] [place] [address] [email or web address] 08/01/2024 2:20 PM EDT Office Visit [address] [address] Jaret Clemons MD [address] [place] [address] [email or web address] 08/09/2024 2:30 PM EDT Appointment [facility] [place] Adult [facility] [address] [place] [address] Mckayla Gregg MD [address] [place] [address] [email or web address] 11/24/2024 8:[address] [place] [address] [place] [address] Monet Carranza MD, PhD 55 [place] [address] [email or web address] 11/29/2024 9:40 AM EDT Office Visit [facility] [place] [facility] (RENAL) 100 [facility] [address] [place] [address] Praveen Ball MD [address] [place] [address] [address] [place] [address] CHANTALE@[email or web address] documented as of this encounter Visit Diagnoses Not on filedocumented in this encounter Additional Health Concerns Assessment Noted Time PHQ-9 Depression Total Score: 25 025 11:01 AM EST PHQ-2 Depression Total Score: 6 04/29/19 25 11:01 AM EST documented as of this encounter Care Teams Surgical Asst Relationship Specialty Start Date End Date Alex Parks MD [address] [place] [phone] [email or web address]. [place] PCP - General Internal Medicine 03/13/23 Mckayla Gregg MD [address] [place] [address] [email or web address] PCP - Resident PCP Internal Medicine 06/03/23 Alex Parks MD [address] [place] [address] [email or web address]. [place] Insurance Assigned Provider 07/18/23 documented as of this encounter Additional Source Comments The information contained in this document represents components of the legal health record. It is not the complete legal health record.[facility]
--- OUTSIDE RECORDS SUMMARY | 2024-05-20 02:40 | XMS_ITS | Encounter Summary ---
Author Organization [facility] Address [phone] [facility] [place] [address] Care Team Providers Care Supervisor Water Treatment Plant Name Role Phone Alex Parks MD Primary Care Provider [phone]- [phone] Mckayla Gregg MD Unavailable [phone] Alex Parks MD Unavailable [phone] Reason for Visit * Reason Onset Date Comments Medication Refill 05/04/2024 Encounter Details Date Type Department Care Team (Late st Contact Info) Description 05/04/2024 Refill [facility] Adult Medicine [address] [place] [address] Kaylynn Alvares LPN 151 [place] [phone] [email or web address] Medication Refill Social History Tobacco Use Types [...] Procedure Pass CT, [facility] - [address] [address] 01/22/2024 Procedure Pass [address] [address] 06/17/2024 10:40 AM EST Office Visit [address] [address] Reza Early MD [address] [place] [address] [email or web address] 06/17/2024 1:15 PM EST Appointment [facility] Breast [address] [address] Ade Ramos MD, MPH [address] [address] Kavya@[email or web address] [place] [place] 07/01/2024 11:15 AM EDT Office Visit [facility] Department of Orthopaedic Surgery, Podiatry Service 55 [facility] [address] [place] [address] Eber Calle, DPDianne [address] [place] [address] [email or web address] 08/01/2024 2:20 PM EDT Office Visit [facility] [address] [address] Jaret Clemons MD 243 [facility] [place] [address] [email or web address] 08/09/2024 2:30 PM EDT Appointment [facility] Adult Medicine 151 [place] [address] Mckayla Gregg MD [address] [place] [address] [email or web address] 11/24/2024 8:[address] [place] 80 [place] [address] Monet Carranza MD, PhD [address] [place] [address] SHANNAN@[facility] 11/29/2024 9:40 AM EDT Office Visit [facility] NEPH[facility]OLOGY (RENAL) 100 [facility] [address] [place] [address] Praveen Ball MD 55 [facility] [address] [place] [address] CHANTALE@[email or web address] documented as of this encounter Visit Diagnoses Not on filedocumented in this encounter Additional Health Concerns Assessment Noted Time PHQ-9 Depression Total Score: 25 025 11:01 AM EST PHQ-2 Depression Total Score: 6 04/29/19 25 11:01 AM EST documented as of this encounter Care Teams Supervisor Water Treatment Plant Relationship Specialty Start Date End Date Alex Parks MD [address] [place] [address] [place] [address] [email or web address] [place] PCP - General Internal Medicine 03/13/23 Mckayla Gregg MD [address] [place] [address] [email or web address] [email or web address].[email or web address] PCP - Resident PCP Internal Medicine 06/03/23 Alex Parks MD [address] [place] [address] [email or web address] [place] Insurance Assigned Provider 07/18/23 documented as of this encounter Additional Source Comments The information contained in this document represents components of the legal health record. It is not the complete legal health record.[facility]
--- OUTSIDE RECORDS SUMMARY | 2024-05-20 02:40 | XMS_ITS | Encounter Summary ---
Author Organization [facility] Address [phone] [facility] [place] [address] Care Team Providers Care Django Developer Name Role Phone Ade Ramos MD, MPH [...] Care Team (Late st Contact Info) Description 03/14/2020 Transcribe Orders [facility] Outpatient Care, Radio Flouroscopy [address] [place] [address] [email or web address] Social History Tobacco Use Types Packs/Day Years [...] Procedure Pass CT, [facility] [place] 80 [place] [address] 01/22/2024 Procedure Pass [address] [address] 06/17/2024 10:40 AM EST Office Visit [address] [address] Reza Ealry MD [address] [place] [address] [email or web address] 06/17/2024 1:15 PM EST Appointment [address] [address] Ade Ramos MD, MPH [address] [place] [address] [email or web address]. [facility] 07/01/2024 11:15 AM EDT Office Visit [facility] Department of Orthopaedic Surgery, Podiatry Service [address] [address] Eber Calle DPM [address] [place] [address] [email or web address] 08/01/2024 2:20 PM EDT Office Visit [place] [address] [address] Jaret Clemons MD 243 [facility] [place] [address] [email or web address] 08/09/2024 2:30 PM EDT Appointment [facility] Adult Medicine [address] [place] [address] Mckayla Gregg MD 151 [facility] [place] [address] [email or web address] 11/24/2024 8:[address], [facility] [place] [address] [place] [address] Monet Carranza MD, PhD 55 [place] [address] SHANNAN@[email or web address] 11/29/2024 9:40 AM EDT Office Visit [facility] NEPHROLOGY (RENAL) [address] [facility] [address] [place] [address] Praveen Ball MD 55 [facility] [address] [place] [address] [email or web address] documented as of this encounter Visit Diagnoses [...] CoV-Risk Comment:Per Ambulatory Triage Form 11/14/2022 11/14/202211/25 1:23 AM EDT CoV-Risk Comment:Per Ambulatory Triage Form 02/11/2024 02/11/202402/21 1:23 AM EST Assessment Noted Time PHQ-9 Depression Total Score: 7 07/16/19 16 9:26 AM EDT PHQ-2 Depression Total Score: 0 07/20/19 19 12:29 PM EDT documented as of this encounter Care Teams Django Developer Relationship Specialty Start Date End Date Ade Ramos MD, MPH [address] [place] [address] [email or web address] PCP - General 10/11/13 04/28/20 Pcp, Unknown PCP - General 04/29/20 05/28/20 Ade Ramos MD, MPH [address] [place] [address] [email or web address] PCP - General Internal Medicine 05/29/20 03/12/23 Rosa Damico MD, MPH [address] [place] [address] [place] [address] [email or web address] PCP - Resident PCP Internal Medicine 01/23/23 03/12/23 Alex Parks MD [address] [place] [address] [email or web address] [email or web address] PCP - General Internal Medicine 03/13/23 Mckayla Gregg MD [address] [place] [address] [email or web address] PCP - Resident PCP Internal Medicine 06/03/23 Ade Ramos MD, MPH [address] [place], [place] [address] [address] [email or web address] [employer] Attributed Provider 06/17/14 01/17/23 Ade Ramos MD, MPH [address] [place], [place] [address] [address] [email or web address] Insurance Assigned Provider 07/20/19 04/21/20 Aelx Parks MD [address] [place], [place] [address] [address] MADELIN@[email or web address] [employer] Attributed Provider 04/18/23 06/20/23 Mckayla Gregg MD [address] [place] [address] [address] [place] [address] [email or web address] Partners Attributed Provider 06/20/23 08/20/23 Alex Parks MD [address] [place], [place] [address] [address] MADELIN@[email or web address]. du Insurance Assigned Provider 07/18/23 Mckayla Gregg MD [facility] [address] [place] [address] [email or web address] Partners Attributed Provider 06/20/23 08/20/23 documented as of this encounter Additional Source Comments The information contained in this document represents components of the legal health record. It is not the complete legal health record.[facility]
--- OUTSIDE RECORDS SUMMARY | 2024-05-20 02:40 | XMS_ITS | Encounter Summary ---
Author Organization [facility] Address [phone] [facility] [employer] [address] Care Team Providers Care Rn On Site Name Role Phone Alex Parks MD Primary Care Provider +- [phone] Mckayla Gregg MD Unavailable [phone] Alex Parks MD Unavailable [phone] Encounter Details Date Type Department Care Team (Late st Contact Info) Description 05/03/2024 10:40 AM EST Office Visit [facility] NEPH[facility]OLOG[facility] (RENAL) [address] [place] [address] Praveen Ball MD [address] [place] [address] [email or web address] Stage 3b chronic kidney disease (Primary Dx); Benign essential hypertension; Resistant hypertension Social History Tobacco Use Types Packs/Day Years [...] AM EDT documented as of this encounter Last Filed Vital Signs Vital Sign Reading Time Taken Comments Blood Pressure 109/74 05/03/2024 11:07 AM EST Pulse 79 05/03/2024 11:07 AM EST Temperature - - Respiratory Rate - - Oxygen Saturation 96% 05/03/2024 11:07 AM EST Inhaled Oxygen Concentration - - Weight 80.7 kg (178 lb) 05/03/2024 11:07 AM EST Height - - Body Mass Index 33.65 02/24/2024 10:57 AM EST documented in this encounter Progress Notes * Praveen Ball MD - 05/03/2024 10:40 AM EST [facility] Patient Name: Brittany Weaver Date of Visit: 05/03/2024 She requests to have the conversation in Indonesian. Reason for Visit: CKD Interval History: Continues to have very high BP readings (190-200s) at home - stanley at night (BP starts going up by 5 PM). BP 109/74 today. She tajes amlodipine and losartan at night and the rest in the morning. Ran out of meds, picked up refills. On max dose losartan as well as amlodipine, verapamil, doxazosin and chlorthalidone. Currently has bronchitis, going for a CXR. HPI: 54 y.o. female with a history of DM, HTN, fatty liver is here with CKD. DM: -dx > 30 years ago -A1Cs very well controlled -on insulin, trulicity (MFN stopped). HTN: -large fluctuation in BPs and frequent changes in regimen -recent office BPs have been well controlled -home SBP 110-160 (fluctuating) -current regimen is losartan 100mg qd, verapamil 120mg qd and doxazosin 4mg qd along with amlodipine 5mg qd which was added recently -she has 60% stenosis on the R, is meeting interventional radiology tomorrow -has bradycardia and hence is not on a BB -previously on triamterene-HCTZ which is noted to have been stopped for ?azotemia No h/o kidney problems prior No kidney stones Current smoker Past medical history (including Problem List), social history and family history reviewed from EHR. Note that most recent lab work and other specialty & primary care notes were reviewed at the time of this visit as of 05/03/24 Physical Exam: Vitals: 05/03/24 1107 BP: 109/74 Pulse: 79 SpO2: 96% Wt Readings from Last 3 Encounters: 05/03/24 80.7 kg (178 lb) 04/29/24 79.1 kg (174 lb 6.4 oz) 02/24/24 78.2 kg (172 lb 6.4 oz) Gen: NAD CV: Regular rhythm, S1 S2, no m/r/g Chest: Clear to auscultation Abd: Soft, non-tender, non-distended. Ext: No edema Laboratory Chemistries: Lab Results Component Value Date NA 138 01/22/2024 K 4.5 01/22/2024 CL 99 01/22/2024 CO2 28 01/22/2024 BUN 20 01/22/2024 CRE 1.47 01/22/2024 GFR 42 (L) 01/22/2024 ALB 4.2 04/10/2023 MALBCRE 268.3 (H) 12/29/2023 MBD: Lab Results Component Value Date CA 9.8 01/22/2024 PHOS 3.2 06/30/2023 PTH 47 06/30/2023 Anemia: Lab Results Component Value Date FE 79 06/30/2023 TIBC 309 06/30/2023 JEAN PIERRE 143 06/30/2023 CBC: Lab Results Component Value Date WBC 10.84 01/22/2024 HGB 10.6 (L) 01/22/2024 HCT 34.6 (L) 01/22/2024 PLT 377 01/22/2024 Serologies: Lab Results Component Value Date GHBA1C 7.0 (H) 01/22/2024 IGG 877 05/24/2010 IGA 194 01/16/2012 IGM 39 (Abnormally L) 05/24/2010 AGEP see comment 05/24/2010 HBSAG Negative 05/24/2010 HBSAB Reactive 05/24/2010 HCVAB Non-Reactive 05/24/2010 A/P: 54 y.o. female with a history of DM, HTN, fatty liver is here with CKD. #CKD: stage 3/diabetic nephropathy: -stable Cr for many years prior to increase in 2020 and then 2022 -no albuminuria (or well controlled on losartan) -+tobacco use, ibuprofen use in the past as well -normal sized kidneys -on jardiance, losartan -check labs today. ?#Blood Pressure: goal 130s/80s? -many changes to regimen -has >60% DAVID on the R. Underwent Angiogram 09/2023 - total occlusion on the R, no intervention could be performed. -renin/merrill do not indicate primary hyperaldo. Normetanephrines are high - high false positive ratewhen measured without supine rest. Suspicion is extremely low. -current regimen is losartan 100mg qd, verapamil 120mg qd and doxazosin 4mg qd along with amlodipine 5mg qd and chlorthalidone 50mg qd (amlodipine and losartan at night, rest AM) -has bradycardia and hence is not on a BB -previously on triamterene-HCTZ which is noted to have been stopped for ?azotemia -should be on aldactone with such resistant BP. HyperK is a concern, can consider later after she recovers from bronchitis. ? #Anemia: goal Hgb 10-11. Iron studies - Tsat 26, ferritin 143 - DAVID: not indicated? ? #Bone metabolism: ?PTH 47 06/2023 ? #Diet/Electrolytes: ?WNL ? #Volume: euvolemic, dry weight is around current weight ? #Transplant/Access planning: not yet indicated until CKD stage IV? ? #Diabetes: Insulin, Trulicity, jardiance. Return to clinic in 3-4 months. Praveen Ball MD Nephrology, [facility] I personally spent a total of 45 minutes to care for this patient on the date of the encounter. This includes time used for documentation, chart review and care coordination. documented in this encounter Plan of Treatment Upcoming Encounters Date Type Department Care Team (Late st Contact Info) Description 11/25/[address] [place] [address] [place] [address] 01/22/2024 Procedure Pass [address] [address] 06/17/2024 10:40 AM EST Office Visit [address] [address] Reza Early MD [address] [place] [address] [email or web address] 06/17/2024 1:15 PM EST Appointment [address] [address] Ade Ramos MD, MPH [address] [place] [address] Kavya@[facility] 07/01/2024 11:15 AM EDT Office Visit [facility] Department of Orthopaedic Surgery, Podiatry Service [address] [place] [address] Eber Calle DPM [address] [place] [address] [email or web address] 08/01/2024 2:20 PM EDT Office Visit [facility] [address] [address] Jaret Clemons MD 243 [facility] [address] [email or web address] 08/09/2024 2:30 PM EDT Appointment [facility] Adult Medicine [address] [place] [address] Mckayla Gregg MD 151 [place] [address] [email or web address] 11/24/2024 8:[address], [facility] [place] 80 [facility] [place] [address] Monet Carranza MD, PhD [address] [place] [address] SHANNAN@[email or web address] 11/29/2024 9:40 AM EDT Office Visit [facility] (RENAL) 100 [facility] [address] [place] [address] Praveen Ball MD 55 [facility] [address] [place] [address] [email or web address] documented as of this encounter Procedures Procedure Name Priority Date/Time Associated Diagnosis Comments CBC Routine 05/03/2024 11:42 AM EST Stage 3b chronic kidney disease Benign essential hypertension Resistant hypertension BASIC METABOLIC PANEL Routine 05/03/2024 11:42 AM EST Stage 3b chronic kidney disease Benign essential hypertension Resistant hypertension documented in this encounter Results * (ABNORMAL) CBC (05/03/2024 11:42 AM EST) WBC 12.42(H) 4.00 - 11.00 K/uL [facility] RBC 4.43 4.00 - 5.20 M/uL [facility] HGB 11.0(L) 12.0 - 16.0 g/dL [facility] HCT 36.2 36.0 - 46.0 % [facility] PLT 255 150 - 450 K/uL [facility] MCV 81.7 80.0 - 100.0 fL [facility] MCH 24.8(L) 27.0 - 31.0 pg [facility] MCHC 30.4(L) 32.0 - 36.0 g/dL [facility] RDW 13.7 11.5 - 14.5 % [facility] MPV 9.8 8.4 - 12.0 fL [facility] NRBC 0.00 0.00 /100 WBCs [facility] ABSOLUTE NRBC 0.00 0.00 K/uL [facility] Blood 05/03/2024 11:4 2 AM EST 05/03/2024 12:45 PM EST Praveen Ball MD LAB BLOO D ORDERABLES Performing Organization Address City/State/[facility] Co de Phone Number [address] [address] * (ABNORMAL) Basic metabolic panel (05/03/2024 11:42 AM EST) SODIUM 138 135 - 145 mmol/L [facility] POTASSIUM 4.7 3.4 - 5.0 mmol/L [facility] CHLORIDE 104 98 - 108 mmol/L [facility] CO2 24 23 - 32 mmol/L [facility] BUN 18 8 - 25 mg/dL [facility] CREATININE 1.93(H) 0.50 - 1.00 mg/dL [facility] GLUCOSE 76 70 - 110 mg/dL [facility] CALCIUM 9.6 8.5 - 10.5 mg/dL [facility] EGFR 30(L) >59 mL/min/1. 73m2 [facility] Comment:Estimated glomerular filtration rate calculated using the CKD-EPI refit equation. ANION GAP 10 3 - 17 mmol/L [facility] Blood 05/03/2024 11:4 2 AM EST 05/03/2024 12:45 PM EST Praveen Ball MD LAB BLOO D ORDERABLES [facility] [address] [place] [address] documented in this encounter Visit Diagnoses Diagnosis Stage 3b chronic kidney disease- Primary Benign essential hypertension Essential hypertension, benign Resistant hypertension documented in this encounter Additional Health Concerns Assessment Noted Time PHQ-9 Depression Total Score: 25 025 11:01 AM EST PHQ-2 Depression Total Score: 6 04/29/19 25 11:01 AM EST documented as of this encounter Care Teams Rn On Site Relationship Specialty Start Date End Date Alex Parks MD [address] [place] [phone] [email or web address] [place] PCP - General Internal Medicine 03/13/23 Mckayla Gregg MD [address] [place] [address] [email or web address] PCP - Resident PCP Internal Medicine 06/03/23 Alex Parks MD [address] [place] [address] [email or web address]. gorge Insurance Assigned Provider 07/18/23 documented as of this encounter Additional Source Comments The information contained in this document represents components of the legal health record. It is not the complete legal health record.[facility]
--- OUTSIDE RECORDS SUMMARY | 2024-05-20 02:40 | XMS_ITS | Encounter Summary ---
Author Organization [facility] Address [phone] [facility] [place] [address] Care Team Providers Care Knitting Machine Operator Helper Name Role Phone Alex Parks MD Primary Care Provider [phone]- [phone] Mckayla Gregg MD Unavailable [phone] Alex Parks MD Unavailable [phone] Reason for Visit * Reason Onset Date Comments Medication Refill 05/03/2024 Encounter Details Date Type Department Care Team (Late st Contact Info) Description 05/03/2024 Refill [facility] Adult Medicine [address] [place] [address] Kaylynn Alvares LPN 151 [place] [address] [email or web address] Medication Refill Social History Tobacco Use Types [...] Progress Notes * Kaylynn Alvares LPN - 05/03/2024 2:57 PM EST PA for Albuterol inhaler sent in Center x documented in this encounter Plan of Treatment Upcoming Encounters Date Type Department Care Team (Late st Contact Info) Description 11/25/[address] [place] [address] [place] [address] 01/22/2024 Procedure Pass [facility] Breast Imaging [facility] [address] [place] [address] 06/17/2024 10:40 AM EST Office Visit [address] [address] Reza Early MD [address] [place] [address] [email or web address] 06/17/2024 1:15 PM EST Appointment [facility] Imaging [facility] [address] [place] [address] Ade Ramos MD, MPH [address] [address] Kavya@[email or web address] 07/01/2024 11:15 AM EDT Office Visit [facility] Department of Orthopaedic Surgery, Podiatry Service [address] [address] Eber Calle, DPM 98 [place] [address] [email or web address] 08/01/2024 2:20 PM EDT Office Visit [address] [address] Jaret Clemons MD [address] [place] [address] [email or web address] 08/09/2024 2:30 PM EDT Appointment [facility] [place] Adult Medicine [address] [place] [address] Mckayla Gregg MD [address] [place] [address] [email or web address] 11/24/2024 8:[address], [facility] [place] [address] [place] [address] Monet Carranza MD, PhD 55 [place] [address] SHANNAN@[email or web address] 11/29/2024 9:40 AM EDT Office Visit [facility] [place] [facility] (RENAL) 100 [facility] [address] [place] [address] Praveen Ball MD [address] [place] [address] [address] [place] [address] CHANTALE@[facility] documented as of this encounter Visit Diagnoses Not on filedocumented in this encounter Additional Health Concerns Assessment Noted Time PHQ-9 Depression Total Score: 25 025 11:01 AM EST PHQ-2 Depression Total Score: 6 04/29/19 25 11:01 AM EST documented as of this encounter Care Teams Knitting Machine Operator Helper Relationship Specialty Start Date End Date Alex Parks MD [address] [place] [address] [email or web address]. [place] PCP - General Internal Medicine 03/13/23 Mckayla Gregg MD [address] [place] [address] [email or web address] PCP - Resident PCP Internal Medicine 06/03/23 Alex Parks MD [address] [place] [address] [email or web address]. [place] Insurance Assigned Provider 07/18/23 documented as of this encounter Additional Source Comments The information contained in this document represents components of the legal health record. It is not the complete legal health record.[facility]
--- OUTSIDE RECORDS SUMMARY | 2024-05-20 02:40 | XMS_ITS | Encounter Summary ---
Author Organization [facility] Address [phone] [facility] [place] [address] Care Team Providers Care Mainspring Reverse Winder Name Role Phone Alex Parks MD Primary Care Provider [phone]- [phone] Mckayla Gregg MD Unavailable [phone] Alex Parks MD Unavailable [phone] Encounter Details Date Type Department Care Team (Latest Contact Info) Description 05/04/2024 Orders Only [facility] [address] [place] [address] Praveen Ball MD [address] [place] [address] [email or web address] .[facility] (acute kidney injury) (Primary Dx) Social History Tobacco Use Types Packs/Day Years [...] Procedure Pass CT, [facility] [place] [address] [place] [address] 01/22/2024 Procedure Pass [address] [address] 06/17/2024 10:40 AM EST Office Visit [address] [address] Reza Early MD [address] [place] [address] [email or web address] 06/17/2024 1:15 PM EST Appointment [address] [place] [address] Ade Ramos MD, MPH [address] [address] Kavya@[facility] 07/01/2024 11:15 AM EDT Office Visit [facility] Department of Orthopaedic Surgery, Podiatry Service 55 [facility] [address] [place] [address] Eber Calle, DPM [address] [place] [address] [email or web address] 08/01/2024 2:20 PM EDT Office Visit [facility] [address] [address] Jaret Clemons MD 243 [place] [address] Barrera@[email or web address] 08/09/2024 2:30 PM EDT Appointment [facility] Adult Medicine [address] [place] [address] Mckayla Gregg MD 151 [place] [address] [email or web address] 11/24/2024 8:[address], [facility] [place] [address] [place] [address] Monet Carranza MD, PhD 55 [place] [address] SHANNAN@[email or web address] 11/29/2024 9:40 AM EDT Office Visit [facility] NEPHROLOG[facility] (RENAL) 100 [facility] [address] [place] [address] Praveen Ball MD 55 [facility] [address] [place] [address] CHANTALE@[email or web address] documented as of this encounter Results * (ABNORMAL) Basic metabolic panel (05/10/2024 11:45 AM EST) SODIUM 139 135 - 145 mmol/L [facility] [...] Praveen Ball MD LAB BLOO D ORDERABLES [facility] [address] [address] documented in this encounter Visit Diagnoses Diagnosis YURY (acute kidney injury)- Primary documented in this encounter Additional Health Concerns Assessment Noted Time PHQ-9 Depression Total Score: 25 025 11:01 AM EST PHQ-2 Depression Total Score: 6 04/29/19 25 11:01 AM EST documented as of this encounter Care Teams Mainspring Reverse Winder Relationship Specialty Start Date End Date Alex Parks MD [address] [place] [address] MADELIN@[email or web address] PCP - General Internal Medicine 03/13/23 Mckayla Gregg MD [address] [place] [address] [email or web address] PCP - Resident PCP Internal Medicine 06/03/23 Alex Parks MD [address] [place] [address] MADELIN@[email or web address] du Insurance Assigned Provider 07/18/23 documented as of this encounter Additional Source Comments The information contained in this document represents components of the legal health record. It is not the complete legal health record.[facility]
--- OUTSIDE RECORDS SUMMARY | 2024-05-20 02:40 | XMS_ITS | Encounter Summary ---
Author Organization [facility] Address [phone] [facility] [place] [address] Care Team Providers Care Fsr Name Role Phone Ade Ramos MD, MPH Unavailable + [phone] Ade Ramos MD, MPH Primary Care Provider [phone] Rosa Damico MD, MPH Unavailable + [phone] Alex Parks MD Primary Care Provider [phone] Alex Parks MD Unavailable [phone] Mckayla Gregg MD Unavailable [phone] Mckayla Gregg MD Unavailable + [phone] Alex Parks MD Unavailable + [phone] Mckayla Gregg MD Unavailable + [phone] Encounter Details Date Type Department Care Team (Late st Contact Info) Description 06/04/[address], [facility] - [place] [address] [place] [address] Social History Tobacco Use Types Packs/Day Years [...] CT, [facility] [place] [address] [place] [address] 01/22/2024 Procedure Pass [facility] 300 [place] [address] 06/17/2024 10:40 AM EST Office Visit [address] [address] Reza Early MD [address] [place] [address] [email or web address] 06/17/2024 1:15 PM EST Appointment [facility] [address] [place] [address] Ade Ramos MD, MPH [address] [address] Kavya@[email or web address] 07/01/2024 11:15 AM EDT Office [facility] Department of Orthopaedic Surgery, Podiatry Service [address] [place] [address] Eber Calle DPM [address] [place] [address] [email or web address] 08/01/2024 2:20 PM EDT Office Visit [facility] [address] [address] Jaret Clemons MD [address] [place] [address] [place] [address] Barrera@[email or web address] 08/09/2024 2:[address] [facility] [place] Adult Medicine [address] [place] [address] Mckayla Gregg MD [address] [place] [address] [email or web address] 11/24/2024 8:[address], [facility] [place] [address] [place] [address] Monet Carranza MD, PhD 55 [place] [address] SHANNAN@[email or web address] 11/29/2024 9:40 AM EDT Office Visit [facility] NEPHROLOG[facility] (RENAL) [address] [facility] [address] [place] [address] Praveen Ball MD [address] [place] [address] [place] [address] CHANTALE@[email or web address] documented as of this encounter Visit Diagnoses Not on filedocumented in this encounter Additional Health Concerns Infection Onset Date Last Indicated Resolved Time CoV-Exposed Comment:Recent close contact documented in the [...] documented as of this encounter Care Teams Fsr Relationship Specialty Start Date End Date Ade Ramos MD, MPH [address] [place] [address] [place] [address] Kavya@[email or web address] PCP - General Internal Medicine 05/29/20 03/12/23 Rosa Damico MD, MPH [address] [place] [address] [email or web address] PCP - Resident PCP Internal Medicine 01/23/23 03/12/23 Alex Parks MD [address] [place] [address] [email or web address] PCP - General Internal Medicine 03/13/23 Mckayla Gregg MD [address] [place] [address] [email or web address] PCP - Resident PCP Internal Medicine 06/03/23 Ade Ramos MD, MPH [address] [place] [address] Kavya@[facility] Partners Attributed Provider 06/17/14 01/17/23 Alex Parks MD [address] [place] [address] MADELIN@[email or web address] du Partners Attributed Provider 04/18/23 06/20/23 Mckayla Gregg MD [address] [place] [address] [email or web address] Partners Attributed Provider 06/20/23 08/20/23 Alex Parks MD [address] [place] [address] MADELIN@[email or web address]. du Insurance Assigned Provider 07/18/23 Mckayla Gregg MD [address] [place] [address] [email or web address] Partners Attributed Provider 06/20/23 08/20/23 documented as of this encounter Additional Source Comments The information contained in this document represents components of the legal health record. It is not the complete legal health record.[facility]
--- OUTSIDE RECORDS SUMMARY | 2024-05-20 02:40 | XMS_ITS | Encounter Summary ---
Author Organization [facility] Address [phone] [facility] [place] [address] Care Team Providers Care Sales Agent Protective Service Name Role Phone Ade Ramos MD, MPH Unavailable + [phone] Pcp, Unknown Primary Care Provider Unavailabl e Ade Ramos MD, MPH Primary Care Provider [phone] Rosa Damico MD, MPH Unavailable + [phone] Alex Parks MD Primary Care Provider +80 Alex Parks MD Unavailable + [phone] Mckayla Gregg MD Unavailable + 00 Mckayla Gregg MD Unavailable + 00 Alex Parks MD Unavailable + [phone] Mckayla Gregg MD Unavailable + 00 Encounter Details Date Type Department Care Team (Late st Contact Info) Description 05/02/2020 Procedure Pass [facility] Outpatient Care, Radio Flouroscopy [address] [place] [address] Social History Tobacco Use Types Packs/Day Years [...] CT, [facility] [place] [address] [place] [address] 01/22/2024 Procedure Pass [facility] [address] [place] [address] 06/17/2024 10:40 AM EST Office Visit [address] [address] Reza Early MD 243 [place] [address] [email or web address] 06/17/2024 1:15 PM EST Appointment [facility] [address] [place] [address] Ade Ramos MD, MPH [address] [address] [email or web address] 07/01/2024 11:15 AM EDT Office Visit [facility] Department of Orthopaedic Surgery, Podiatry Service [address] [place] [address] Eber Calle DPM [address] [place] [address] [email or web address] 08/01/2024 2:20 PM EDT Office Visit [facility] [address] [address] Jaret Clemons MD 243 [facility] [place] [address] [email or web address] 08/09/2024 2:30 PM EDT Appointment [facility] [place] [facility] [address] [place] [address] Mckayla Gregg MD [address] [place] [address] [email or web address] 11/24/2024 8:[address], [facility] [place] [address] [place] [address] Monet Carranza MD, PhD [address] [place] [address] [email or web address] 11/29/2024 9:40 AM EDT Office Visit [facility] [place] [facility] (RENAL) [address] [facility] [address] [place] [address] Praveen Ball MD [address] [place] [address] [place] [address] [email or web address] documented as of this encounter Visit [...] documented as of this encounter Care Teams Sales Agent Protective Service Relationship Specialty Start Date End Date Pcp, Unknown PCP - General 04/29/20 05/28/20 Ade Ramos MD, MPH [address] [place] [address] [place] [address] [email or web address] PCP - General Internal Medicine 05/29/20 03/12/23 Rosa Damico MD, MPH [address] [place] [address] [address] [address] [email or web address] PCP - Resident PCP Internal Medicine 01/23/23 03/12/23 Alex Parks MD [address] [place] [address] [place] [address] [email or web address] [place] PCP - General Internal Medicine 03/13/23 Mckayla Gregg MD [address] [place] [address] [place] [address] [email or web address] PCP - Resident PCP Internal Medicine 06/03/23 Ade Ramos MD, MPH [address] [place] [address] [place] [address] [email or web address] Partners Attributed Provider 06/17/14 01/17/23 Alex Parks MD [address] [place] [address] [place] [address] [email or web address] Partners Attributed Provider 04/18/23 06/20/23 Mckayla Gregg MD [address] [place] [address] [email or web address] Partners Attributed Provider 06/20/23 08/20/23 Alex Parks MD [address] [place] [address] [email or web address] Insurance Assigned Provider 07/18/23 Mckayla Gregg MD [address] [place] [address] [email or web address] Partners Attributed Provider 06/20/23 08/20/23 documented as of this encounter Additional Source Comments The information contained in this document represents components of the legal health record. It is not the complete legal health record.[facility]
--- OUTSIDE RECORDS SUMMARY | 2024-05-20 02:40 | XMS_ITS | Encounter Summary ---
Author Organization [facility] Address [phone] [facility] [place] [address] Care Team Providers Care Aircraft Electronics Technical Officer Name Role Phone Ade Ramos MD, MPH Primary Care Provider [phone] Ade Ramos MD, MPH Unavailable + Ade Ramos MD, MPH Unavailable + Pcp, Unknown Primary Care Provider Unavailabl e Ade Ramos MD, MPH Primary Care Provider +[phone] Rosa Damico MD, MPH Unavailable + Alex Parks MD Primary Care Provider + Alex Parks MD Unavailable + Mckayla Gregg MD Unavailable + 00 Mckayla Gregg MD Unavailable + 00 Alex Parks MD Unavailable + Mckayla Gregg MD Unavailable + 00 Encounter Details Date Type Department Care Team (Late st Contact Info) Description 09/25/2015 Ancillary Orders [facility] Adult Medicine [address] [place] [address] Ade Ramos MD, MPH [address] [address] [email or web address] Screening (Primary Dx) Social History Tobacco Use Types Packs/Day Years Used Date Smoking Tobacco: Every Day Alcohol Use Standard Drinks/Week Comments No 0 [...] Procedure Pass CT, [facility] - [place] [address] [place] [address] 01/22/2024 Procedure Pass [facility] Breast [facility] 300 [place] [address] 06/17/2024 10:40 AM EST Office Visit [facility] [address] [address] Reza Early MD [address] [place] [address] [email or web address] 06/17/2024 1:15 PM EST Appointment [facility] Breast [facility] 300 [place] [address] Ade Ramos MD, MPH [address] [address] [email or web address] 07/01/2024 11:15 AM EDT Office Visit [facility] Department of Orthopaedic Surgery, Podiatry Service [address] [address] Eber Calle DPM 98 [place] [address] [email or web address] 08/01/2024 2:20 PM EDT Office Visit [facility] [address] [address] Jaret Clemons MD 243 [place] [address] [email or web address] 08/09/2024 2:30 PM EDT Appointment [facility] Adult Medicine 151 [facility] [place] [address] Mckayla Gregg MD 151 [place] [address] [email or web address] 11/24/2024 8:[address], [facility] - [place] [address] [place] [address] Monet Carranza MD, PhD 55 [place] [address] [email or web address] 11/29/2024 9:40 AM EDT Office Visit [facility] NEPHROLOGY ([facility]NAL) 100 [facility] [address] [place] [address] Praveen Ball MD 55 [facility] [address] [place] [address] [email or web address] documented as of this encounter Results * BI MAMMOGRAM SCREENING WITH TOMOSYNTHESIS WITH CAD (BILATERAL) (09/26/2015 1:24 PM EDT) Anatomical Region Laterality Modality Breast Left, Breast Right, Breast Bilateral Bila teral Mammography 09/26/2015 Impressions 09/26/2015 1:58 PM EDT IMPRESSION:There is no specific mammographic evidence of malignancy. BI-RADS Category 1: Negative Patient's information is entered into a reminder system with a target due date for the next mammogram. ?? Narrative 09/26/2015 1:58 PM EDT INDICATION FOR EXAM:Screening. PROCEDURE:The following standard mammographic and tomosynthesis views were obtained: craniocaudal and mediolateral oblique. Computer-aided detection (R2 CENOVA version 1.3) was utilized by the radiologist in the interpretation of this examination. BILATERAL MAMMOGRAM:The present examination has been compared to prior imaging studies. There are scattered fibroglandular densities. No suspicious masses, calcifications or other abnormalities are seen. ??There are no significant changes compared to prior studies. Procedure Note Alea Raman MD - 09/26/2015 INDICATION FOR EXAM:Screening. PROCEDURE:The following standardmammographic and tomosynthesis views were obtained: craniocaudal andmediolateral oblique. Computer-aided detection (R2 CENOVA version 1.3) wasutilized by the radiologist in the interpretation of this examination.BILATERAL MAMMOGRAM:The present examination has been compared to priorimaging studies. There are scattered fibroglandular densities. Nosuspicious masses, calcifications or other abnormalities are seen. Thereare no significant changes compared to prior studies. IMPRESSION: IMPRESSION:There is no specific mammographic evidence of malignancy.BI-RADS Category 1: Negative Patient's information is entered into [employer] system with a target due date for the next mammogram. Ade Ramos MD, MPH IMG MG EXAMS documented in this encounter Visit Diagnoses Diagnosis Screening- Primary Screening for unspecified condition Screening Screening for unspecified condition documented in this encounter Additional Health Concerns Infection [...] 9:26 AM EDT PHQ-2 Depression Total Score: 3 07/16/19 16 9:26 AM EDT documented as of this encounter Care Teams Aircraft Electronics Technical Officer Relationship Specialty Start Date End Date Ade Ramos MD, MPH [address] [place] [address] [email or web address] PCP - General 10/11/13 04/28/20 Pcp, Unknown PCP - General 04/29/20 05/28/20 Ade Ramos MD, MPH [address] [place] [address] [email or web address] PCP - General Internal Medicine 05/29/20 03/12/23 Rosa Damico MD, MPH [address] [place] [address] [email or web address] PCP - Resident PCP Internal Medicine 01/23/23 03/12/23 Alex Parks MD [address] [place] [address] [email or web address] PCP - General Internal Medicine 03/13/23 Mckayla Gregg MD [address] [place] [address] [email or web address] PCP - Resident PCP Internal Medicine 06/03/23 Ade Ramos MD, MPH [address] [place] [address] [place] [address] [email or web address]@[email or web address] Partners Attributed Provider 06/17/14 01/17/23 dAe Ramos MD, MPH [address] [place], [place] [address] [address] [email or web address]@[email or web address] Insurance Assigned Provider 07/20/19 04/21/20 Alex Parks MD [address] [place], [place] [address] [address] [email or web address] Partners Attributed Provider 04/18/23 06/20/23 Mckayla Gregg MD [address] [place] [address] [place] [address] [email or web address] Partners Attributed Provider 06/20/23 08/20/23 Alex Parks MD [address] [place], [place] [address] [address] MADELIN@[email or web address] Insurance Assigned Provider 07/18/23 Mckayla Gregg MD [address] [place], [place] [address] [address] [email or web address] Attributed Provider 06/20/23 08/20/23 documented as of this encounter Additional Source Comments The information contained in this document represents components of the legal health record. It is not the complete legal health record.[facility]
--- OUTSIDE RECORDS SUMMARY | 2024-05-20 02:40 | XMS_ITS | Encounter Summary ---
Author Organization [facility] Address [phone] [place] [address] Care Team Providers Care Planetarium Sky Show Technician Name Role Phone Alex Parks MD Primary Care Provider [phone]- [phone] Mckayla rGegg MD Unavailable [phone] Alex Parks MD Unavailable [phone] Encounter Details Date Type Department Care Team (Late st Contact Info) Description 02/02/2024 Procedure Pass [facility] Rad[facility] [address] [address] Social History Tobacco Use Types Packs/Day Years [...] Procedure Pass CT, [facility] [place] 80 [place] [address] 01/22/2024 Procedure Pass [facility] Breast [facility] 300 [place] [address] 06/17/2024 10:40 AM EST Office Visit [facility] [address] [address] Reza Early MD 243 [place] [address] [email or web address] 06/17/2024 1:15 PM EST Appointment [facility] Breast [facility] 300 [place] [address] Ade Ramos MD, MPH [address] [address] [email or web address] 07/01/2024 11:15 AM EDT Office Visit [facility] Department of Orthopaedic Surgery, Podiatry Service [address] [address] Eber Calle DPM [address] [place] [address] [email or web address] 08/01/2024 2:20 PM EDT Office Visit [facility] [address] [address] Jaret Clemons MD 243 [facility] [place] [address] [email or web address] 08/09/2024 2:30 PM EDT Appointment [facility] Adult Medicine 151 [place] [address] Mckayla Gregg MD 151 [place] [address] [email or web address] 11/24/2024 8:[address], [facility] [place] 80 [place] [address] Monet Carranza MD, PhD [address] [place] [address] [email or web address]@[facility] 11/29/2024 9:40 AM EDT Office Visit [facility] NEPHROLOGY (RENAL) 100 [facility] [address] [place] [address] Praveen Ball MD 55 [facility] [place] [address] [email or web address] documented as of this encounter Visit Diagnoses Not on filedocumented in this encounter Additional Health Concerns Infection Onset Date Last Indicated Resolved Time CoV-Risk Comment:Per Ambulatory Triage Form 02/11/2024 02/11/202402/21 1:23 AM EST Assessment Noted Time PHQ-9 Depression Total Score: 25 024 11:07 AM EDT PHQ-2 Depression Total Score: 6 01/22/20 24 11:07 AM EDT documented as of this encounter Care Teams Planetarium Sky Show Technician Relationship Specialty Start Date End Date Alex Parks MD [address] [place] [address] [email or web address] PCP - General Internal Medicine 03/13/23 Mckayla Gregg MD [address] [place] [address] [email or web address] PCP - Resident PCP Internal Medicine 06/03/23 Alex Parks MD [address] [place] [address] [email or web address] Insurance Assigned Provider 07/18/23 documented as of this encounter Additional Source Comments The information contained in this document represents components of the legal health record. It is not the complete legal health record.[facility]
--- OUTSIDE RECORDS SUMMARY | 2024-05-20 02:40 | XMS_ITS | Encounter Summary ---
Author Organization [facility] Address [phone] [facility] [place] [address] Care Team Providers Care Dairy Grazer Name Role Phone Alex Parks MD Primary Care Provider + [phone] Mckayla Gregg MD Unavailable [phone] Alex Parks MD Unavailable [phone] Encounter Details Date Type Department Care Team (Latest Contact Info) Description 05/03/2024 12:07 PM EST - 05/03/2024 11:59 PM EST Hospital En[place] [facility] [place] [address] [address] Ade Ramos MD, MPH [address] [place] [address] [email or web address] Discharge Disposition: Home or Self Care Social History Tobacco Use Types Packs/Day Years [...] AM EDT documented as of this encounter Medications at Time of Discharge Medication Sig Dispensed Refills Start Date End Date acetaminophen (TYLENOL) 325 mg tabletIndications:Chronic bilateral low back pain with left-sided sciatica Take 2 tablets (650 mg total) by mouth every 6 (six) hours as needed for headache (not to exceed 4000 mg in one day.). 30 tablet 02/09/2024 albuterol 2.5 mg /3 mL (0.083 %) nebulizer solutionIndications:Modera te persistent asthma without complication USE 1 VIAL IN NEBULIZER TWICE DAILY 60 mL 11 04/05/2024 alirocumab (PRALUENT) 150 mg/mL subcutaneous pen injectorIndications:Famili al hypercholesterolemia Inject 1 mL (150 mg total) under the skin every 14 (fourteen) days. PA Approved 6 mL 3 04/29/2024 ammonium lactate (LAC-HYDRIN) 12 % lotionIndications:Diabetic polyneuropathy associated with type 2 diabetes mellitus Apply topically 2 (two) times a day. 396 g 6 04/10/2024 aspirin 81 MG EC tabletIndications:Familial hypercholesterolemia take 1 tablet by mouth every day 90 tablet 3 09/15/2023 blood sugar diagnostic (GLUCOSE BLOOD) Strp strips 1 each by Miscellaneous route 3 (three) times a day before meals. 200 strip 3 02/04/2024 blood-glucose meter,continuous (DEXCOM G6 ELECTRIC CLOCK MECHANIC) MiscIndications:Type 1 diabetes mellitus with diabetic polyneuropathy by Miscellaneous route as needed. 1 each 11/07/2022 blood-glucose sensor (DEXCOM G6 SENSOR) DeviIndications:Type 1 diabetes mellitus with diabetic polyneuropathy 1 each by Miscellaneous route as directed. Change sensors every 10 days, as directed. 1 each 12 11/07/2022 blood-glucose transmitter (DEXCOM G6 TRANSMITTER) DeviIndications:Type 1 diabetes mellitus with diabetic polyneuropathy 1 each by Miscellaneous route as directed. For use with DexCom G6 sensor. 1 each 4 11/07/2022 chlorthalidone (HYGROTON) 25 MG tabletIndications:Renovasc ular hypertension Take 2 tablets (50 mg total) by mouth daily. 60 tablet 2 04/29/2024 cholecalciferol (VITAMIN D3) 25 MCG (1,000 unit) tablet Take 1 tablet (1,000 Units total) by mouth daily. 90 tablet 3 10/14/2023 ciclopirox (CICLODAN) 0.77 % cream Apply topically 2 (two) times a day. Gently massage into affected areas and surrounding skin 90 g 3 10/24/2022 clotrimazole-betamethasone (LOTRISONE) cream Apply topically 2 (two) times a day. 45 g 3 12/23/2022 diclofenac sodium (VOLTAREN) 1 % GelIndications:Pain of finger of right hand Apply 2 g topically 3 (three) times a day as needed for other (free text field). 100 g 3 03/04/2024 doxazosin (CARDURA) 4 MG tabletIndications:Primary hypertension Take 1 tablet (4 mg total) by mouth nightly at bedtime. Discontinue 2 mg dose 90 tablet 3 01/22/2024 dulaglutide (TRULICITY) 4.5 mg/0.5 mL subcutaneous injectionIndications:Type 1 diabetes mellitus with diabetic polyneuropathy Inject 0.5 mL (4.5 mg total) under the skin every 7 days. 4.5 mL 2 04/29/2024 empagliflozin (JARDIANCE) 10 mg tabletIndications:Type 1 diabetes mellitus with diabetic polyneuropathy Take 1 tablet (10 mg total) by mouth daily. 90 tablet 3 04/29/2024 6 fluticasone furoate-vilanteroL (BREO ELLIPTA) 200-25 mcg/dose inhaler Inhale 1 puff into the lungs daily. 180 each 1 01/20/2024 5 fluticasone propionate (FLONASE) 50 mcg/actuation nasal sprayIndications:Nasal congestion SHAKE LIQUID AND USE 2 SPRAYS IN EACH NOSTRIL DAILY FOR 7 DAYS 9.9 mL 2 04/29/2024 hydrOXYzine (ATARAX) 25 MG tablet TAKE 1 TABLET BY MOUTH TWICE DAILY NEEDED FOR ANXIETY OR PANIC 10/02/2022 insulin aspart U-100 (NOVOLOG) 100 unit/mL injection vialIndications:Type 1 diabetes mellitus with diabetic polyneuropathy Inject 4-6 Units under the skin 3 (three) times a day before meals. 5.4 mL 2 04/29/2024 5 insulin glargine-yfgn (SEMGLEE) 100 unit/mL (3 mL) subcutaneous penIndications:Type 1 diabetes mellitus with diabetic polyneuropathy Inject 10 Units under the skin nightly at bedtime. 9 mL 04/29/2024 5 insulin pen needles, disposable, (BD INSULIN PEN NEEDLE UF SHORT) 31 gauge x 5/16 NdleIndications:Type 1 diabetes mellitus with diabetic polyneuropathy Inject 1 each as directed 4 (four) times a day before meals and nightly. 400 each 3 10/07/2022 ketoconazole 2 % cream Apply topically daily. 60 g 04/29/2024 ketotifen (ZADITOR) 0.025 % (0.035 %) ophthalmic solution Place 1 drop into the right eye 2 (two) times a day. 5 mL 04/29/2024 lidocaine 5 % ointmentIndications:Chroni c bilateral low back pain with left-sided sciatica Apply topically as needed. 35.44 g 11 11/05/2023 loratadine (CLARITIN) 10 mg tabletIndications:Hay fever Take 1 tablet (10 mg total) by mouth 2 (two) times a day as needed for allergies. 60 tablet 11 10/14/2023 losartan (COZAAR) 100 MG tabletIndications:Hyperten monica Take 1 tablet (100 mg total) by mouth daily. 30 tablet 2 04/29/2024 5 magnesium oxide (MAG-OX) 400 mg (241.3 mg elemental) tabletIndications:Chronic tension-type headache, not intractable Take 1 tablet (400 mg total) by mouth daily. 90 tablet 3 01/22/2024 montelukast (SINGULAIR) 10 mg tabletIndications:Mild intermittent asthma without complication Take 1 tablet (10 mg total) by mouth nightly at bedtime. 90 tablet 3 10/14/2023 nicotine (NICODERM CQ) 14 mg/[address] 1 patch onto the skin daily. If insomnia, remove at bedtime 28 patch 1 04/29/2024 omeprazole (PRILOSEC) 40 MG capsule TAKE 1 CAPSULE BY MOUTH TWICE DAILY NEEDED 180 capsule 3 10/14/2023 polyethylene glycol (MIRALAX) 17 gram/dose powderIndications:Slow transit constipation Take 17 g by mouth daily. 850 g 11 10/14/2023 pregabalin (LYRICA) 75 MG capsuleIndications:Diffuse pain,Type 1 diabetes mellitus with diabetic polyneuropathy,Chronic nonintractable headache, unspecified headache type Take 2 capsules (150 mg total) by mouth 3 (three) times a day. Discontinue gabapentin per instructions. 180 capsule 2 04/29/2024 riboflavin, vitamin B2, (,VITAMIN B-2,) 100 mg TabIndications:Chronic tension-type headache, not intractable Take 1 tablet (100 mg total) by mouth daily. 90 tablet 3 01/22/2024 topiramate (TOPAMAX) 100 MG tablet Take 3 tablets by mouth daily. 12/04/2020 traZODone (DESYREL) 100 MG tablet Take 3 tablets (300 mg total) by mouth nightly at bedtime. PRN sleep. 1 to 2 tablets at night. 09/22/2019 white petrolatum-mineral oiL (EUCERIN) Crea Apply topically as needed. 454 g 3 04/29/2024 zolpidem (AMBIEN) 10 mg tablet Take 1 tablet by mouth nightly at bedtime. 10/18/2019 zolpidem (AMBIEN) 5 MG tablet Take 2.5 mg by mouth nightly at bedtime. 10/18/2019 albuterol 90 mcg/actuation inhaler Inhale 2 puffs into the lungs every 6 (six) hours as needed for wheezing. 18 g 3 04/29/2024 5 documented as of this encounter Plan of Treatment Upcoming Encounters Date Type Department Care Team (Late st Contact Info) Description 11/25/[address] [place] [address] [place] [address] 01/22/2024 Procedure Pass [facility] [address] [place] [address] 06/17/2024 10:40 AM EST Office Visit [address] [address] Reza Early MD [address] [place] [address] [email or web address] 06/17/2024 1:15 PM EST Appointment [facility] [address] [place] [address] Ade Ramos MD, MPH [address] [address] [email or web address] 07/01/2024 11:15 AM EDT Office Visit [facility] Department of Orthopaedic Surgery, Podiatry Service [address] [place] [address] Eber Calle DPM 98 [place] [address] [email or web address] 08/01/2024 2:20 PM EDT Office Visit [facility] [address] [address] Jaret Clemons MD [address] [place] [address] - [place] [address] [email or web address] 08/09/2024 2:30 PM EDT Appointment [facility] [place] [facility] [address] [place] [address] Mckayla Gregg MD [address] [place] [address] [email or web address] 11/24/2024 8:[address] [place] [address] [place] [address] Monet Carranza MD, PhD 55 [place] [address] [email or web address] 11/29/2024 9:40 AM EDT Office Visit [facility] [address] [facility] [address] [place] [address] Praveen Ball MD 55 [facility] [place] [address] [email or web address] documented as of this encounter Procedures Procedure Name Priority Date/Time Associated Diagnosis Comments XR CHEST PA AND LATERAL 2 VIEWS Routine 05/03/2024 12:15 PM EST Acute bronchitis, unspecified organism documented in this encounter Results * XR CHEST PA AND LATERAL 2 [...] clinician's provided indication for this examination in [facility]: Cough COMPARISON: CT CHEST (INCIDENTAL FOLLOW-UP) WITHOUT [...] clinician's provided indication for this examination in [facility]:Cough COMPARISON: CT CHEST (INCIDENTAL FOLLOW-UP) WITHOUT CONTRAST [...] radiograph in 10-12 weeks to assess clearing. Ade Ramos MD, MPH IMG XR CHEST documented in this encounter Visit Diagnoses Diagnosis Acute bronchitis, unspecified organism documented in this encounter Additional Health Concerns Assessment Noted Time PHQ-9 Depression Total Score: 25 025 11:01 AM EST PHQ-2 Depression Total Score: 6 04/29/19 25 11:01 AM EST documented as of this encounter Care Teams Dairy Grazer Relationship Specialty Start Date End Date Alex Parks MD [address] [place] [address] [email or web address] PCP - General Internal Medicine 03/13/23 Mckayla Gregg MD [address] [place] [address] [email or web address] PCP - Resident PCP Internal Medicine 06/03/23 Alex Parks MD [address] [place], [place] [address]D[place] [address] [email or web address] Insurance Assigned Provider 07/18/23 documented as of this encounter Additional Source Comments The information contained in this document represents components of the legal health record. It is not the complete legal health record.[facility]
--- OUTSIDE RECORDS SUMMARY | 2024-05-20 02:40 | XMS_ITS | Encounter Summary ---
Author Organization [facility] Address [phone] [facility] [place] [address] Care Team Providers Care Mine Foreman Name Role Phone Alex Parks MD Primary Care Provider [phone] Mckayla Gregg MD Unavailable [phone] Alex Parks MD Unavailable [phone] Encounter Details Date Type Department Care Team (Late st Contact Info) Description 05/09/2024 Telephone [facility] Adult Medicine 151 [place], [place] [id number] Omaira Peasron, RN 151 [place] [address] [email or web address] Social History Tobacco Use Types Packs/Day Years [...] as of this encounter Progress Notes * Omaira Pearson RN - 05/09/2024 8:06 AM EST Reason for call: Provider request Mckayla Gregg MD P [facility] Adlt Med [id number] Rn Provider Hi team, Please let Brittany know her chest x-ray appeared fine and without signs of pneumonia. Her illness was likely viral and does not need antibiotics at this time. Hopefully since have seen her, she has started to feel better. Thank you! Call placed to patient to communicate the above message from the provider. She verbalized understanding and is feeling better but still has a cough. Advised her to call the office back if the cough doesn't improve. documented in this encounter Plan of Treatment Upcoming Encounters Date Type Department Care Team (Late st Contact Info) Description 11/25/[address] - [place] [address] [place] [address] 01/22/2024 Procedure Pass [facility] [place] [facility] [address] [place] [address] 06/17/2024 10:40 AM EST Office Visit [address] [address] Reza Early MD 243 [place] [address] [email or web address] 06/17/2024 1:15 PM EST Appointment [facility] [place] [facility] [address] [place] [address] Ade Ramos MD, MPH [address] [address] [email or web address] 07/01/2024 11:15 AM EDT Office Visit [facility] Department of Orthopaedic Surgery, Podiatry Service [address] [place] [address] Eber Calle DPM [address] [place] [address] [email or web address] 08/01/2024 2:20 PM EDT Office Visit [facility] [address] [address] Jaret Clemons MD 243 [facility] [place] [address] [email or web address] 08/09/2024 2:30 PM EDT Appointment [facility] [place] [facility] 151 [place] [address] Mckayla Gregg MD 151 [place] [address] [email or web address] 11/24/2024 8:[address] [place] 80 [place] [address] Monet Carranza MD, PhD 55 [place] [address] [email or web address] 11/29/2024 9:40 AM EDT Office Visit [facility] [place] [facility] ([facility]) [address] [place] [address] [address] Praveen Ball MD [address] [place], [place] [address] [place] [address] [email or web address] documented as of this encounter Visit Diagnoses Not on filedocumented in this encounter Additional Health Concerns Assessment Noted Time PHQ-9 Depression Total Score: 25 025 11:01 AM EST PHQ-2 Depression Total Score: 6 04/29/19 25 11:01 AM EST documented as of this encounter Care Teams Mine Foreman Relationship Specialty Start Date End Date Alex Parks MD [address] [place] [address] [email or web address] PCP - General Internal Medicine 03/13/23 Mckayla Gregg MD [address] [place] [address] [email or web address] PCP - Resident PCP Internal Medicine 06/03/23 Alex Parks MD [address] [place] [address] [email or web address] Insurance Assigned Provider 07/18/23 documented as of this encounter Additional Source Comments The information contained in this document represents components of the legal health record. It is not the complete legal health record.[facility]
--- OUTSIDE RECORDS SUMMARY | 2024-05-20 02:40 | XMS_ITS | Encounter Summary ---
Author Organization [facility] Address [phone] [facility] [employer] [place] [address] Care Team Providers Care Computer Information Science Professor Name Role Phone Ade Ramos MD, MPH Primary Care Provider [phone] Ade Ramos MD, MPH Unavailable + [phone] [...] Care Team (Late st Contact Info) Description 02/28/2020 Procedure [facility], Radio Flouroscopy [address] [place] [address] Social History Tobacco Use Types Packs/Day Years [...] Procedure Pass CT, [facility] [place] 80 [place] [address] 01/22/2024 Procedure Pass [address] [address] 06/17/2024 10:40 AM EST Office Visit [address] [address] Reza Early MD [address] [place] [address] [email or web address] 06/17/2024 1:15 PM EST Appointment [address] [address] Ade Ramos MD, MPH [address] [place] [address] [email or web address] 07/01/2024 11:15 AM EDT Office Visit [facility] Department of Orthopaedic Surgery, Podiatry Service [address] [address] Eber Calle DPM 98 [place] [address] [email or web address] 08/01/2024 2:20 PM EDT Office Visit [address] [address] Jaret Clemons MD 243 [facility] [place] [address] [email or web address] 08/09/2024 2:30 PM EDT Appointment [facility] Adult Medicine [address] [place] [address] Mckayla Gregg MD [address] [place] [address] [email or web address] 11/24/2024 8:[address] [place] [address] [place] [address] Monet Carranza MD, PhD [address] [place] [address] [email or web address]@[email or web address] 11/29/2024 9:40 AM EDT Office Visit [facility] ([place]) [address] [facility] [address] [place] [address] Praveen Ball MD 55 [facility] CPZ[address] [place] [address] [email or web address] documented as of this encounter Visit Diagnoses Not on filedocumented in this encounter Additional Health Concerns Infection Onset Date Last Indicated Resolved Time CoV-Risk 04/03/2020 04/29/2020 04/13/2020 1:27 AM EST CoV-Exposed Comment:Recent close contact documented in the COVID-19 PCR/PRO order 04/11/2021 04/18/2021 04/26/2021 1:[address] CoV-Risk Comment:Per Ambulatory Triage Form 04/18/2021 04/24/202105/04 1:22 AM EST CoV-Risk Comment:Per Ambulatory Triage Form 11/14/2022 11/14/202211/252023 1:23 AM EDT CoV-Risk Comment:Per Ambulatory Triage Form 02/11/2024 02/11/202402/21 1:23 AM EST Assessment Noted Time PHQ-9 Depression Total Score: 7 07/16/19 16 9:26 AM EDT PHQ-2 Depression Total Score: 0 07/20/19 19 12:29 PM EDT documented as of this encounter Care Teams Computer Information Science Professor Relationship Specialty Start Date End Date Ade Ramos MD, MPH [address] [place] [address] [email or web address] PCP - General 10/11/13 04/28/20 Pcp, Unknown PCP - General 04/29/20 05/28/20 Ade Ramos MD, MPH [address] [place] [address] [email or web address] PCP - General Internal Medicine 05/29/20 03/12/23 Rosa Damico MD, MPH [address] [place] [address] [address] [place] [address] [email or web address] PCP - Resident PCP Internal Medicine 01/23/23 03/12/23 Alex Parks MD [address] [place] [address] [email or web address] PCP - General Internal Medicine 03/13/23 Mckayla Gregg MD [address] [place] [address] [email or web address] PCP - Resident PCP Internal Medicine 06/03/23 Ade Ramos MD, MPH [address] [place] [address] [place] [address] [email or web address] Partners Attributed Provider 06/17/14 01/17/23 Ade Ramos MD, MPH [address] [place], [place] [address] [place] [address] [email or web address] Insurance Assigned Provider 07/20/19 04/21/20 Alex Parks MD [address] [place], [place] [address] [place] [address] [email or web address] Partners Attributed Provider 04/18/23 06/20/23 Mckayla Gregg MD [address] [place], [place] [address] [place] [address] [email or web address] [employer] Attributed Provider 06/20/23 08/20/23 Alex Parks MD [address] [place] [address] [email or web address] Insurance Assigned Provider 07/18/23 Mckayla Gregg MD [address] [place], [place] [address] [place] [address] [email or web address] [employer] Attributed Provider 06/20/23 08/20/23 documented as of this encounter Additional Source Comments The information contained in this document represents components of the legal health record. It is not the complete legal health record.[facility]
--- OUTSIDE RECORDS SUMMARY | 2024-05-20 02:40 | XMS_ITS | Encounter Summary ---
Author Organization [facility] Address [phone] [facility] [place] [address] Care Team Providers Care Domestic Technician Name Role Phone Ade Ramos MD, MPH Unavailable + [phone] Ade Ramos MD, MPH Primary Care Provider [phone] Rosa Damico MD, MPH Unavailable + [phone] Alex Parks MD Primary Care Provider [phone] Alex Parks MD Unavailable + [phone] Mckayla Gregg MD Unavailable [phone] Mckayla Gregg MD Unavailable + [phone] Alex Parks MD Unavailable + [phone] Mckayla Gregg MD Unavailable + [phone] Encounter Details Date Type Department Care Team (Late st Contact Info) Description 03/26/2021 Ancillary Orders [facility] Adult Medicine [address] [place] [address] Saskia Santana, WINDOWS SERVER SPECIALIST [address] [place] [address] [email or web address] Abdominal bloating Social History Tobacco Use Types Packs/Day Years [...] Procedure Pass CT, [facility] - [place] 80 [place] [address] 01/22/2024 Procedure Pass [address] [address] 06/17/2024 10:40 AM EST Office Visit [address] [address] Reza Early MD [address] [place] [address] [email or web address] 06/17/2024 1:15 PM EST Appointment [address] [address] Ade Ramos MD, MPH [address] [place] [address] Kavya@[email or web address] 07/01/2024 11:15 AM EDT Office Visit [facility] Department of Orthopaedic Surgery, Podiatry Service [address] [address] Eber Calle DPM 98 [place] [address] [email or web address] 08/01/2024 2:20 PM EDT Office Visit [address] [address] Jaret Clemons MD 243 [facility] [place] [address] Barrera@[email or web address] 08/09/2024 2:30 PM EDT Appointment [facility] Adult Medicine [address] [place] [address] Mckayla Gregg MD 151 [place] [address] [email or web address] 11/24/2024 8:[address], [facility] - [place] [address] [place] [address] Monet Carranza MD, PhD [address] [place] [address] SHANNAN@[email or web address] 11/29/2024 9:40 AM EDT Office Visit [facility] NEPHROLOGY (RENAL) [address] [facility] [address] [place] [address] Praveen Ball MD 55 [facility] [address]Z-[address] [place] [address] [email or web address] documented as of this encounter Results * US ABDOMINAL WALL (03/26/2021 10:42 AM EST) Anatomical Region Laterality Modality Abdomen Ultrasound 03/26/2021 1:09 PM EST Impressions 03/26/2021 3:07 PM EST No hernia detected in the area of clinical concern along the left lower abdomen/pelvis. ATTESTATION: I, Dr. Jj Esquivel as teaching physician, have reviewed the images for this case and if necessary edited the report originally created by Chino Khan. Narrative 03/26/2021 3:07 PM EST US ABDOMINAL WALL TECHNIQUE: US Abdominal wall COMPARISON: None. FINDINGS: Abdominal wall: Targeted ultrasound was performed of the area of clinical concern along the left lower abdomen/pelvis in the area of clinical concern. Normal, no focal sonographic abnormality or hernia identified. Procedure Note jJ Esquivel, [facility] - 03/26/2021 US ABDOMINAL WALL TECHNIQUE: US Abdominal wall COMPARISON: None. FINDINGS: Abdominal wall: Targeted ultrasound was performed of the area of clinicalconcern along the left lower abdomen/pelvis in the area of clinicalconcern. Normal, no focal sonographic abnormality or hernia identified. IMPRESSION: No hernia detected in the area of clinical concern along the left lowerabdomen/pelvis. ATTESTATION: I, Dr. Jj Esquivel as teaching physician, have reviewedthe images for this case and if necessary edited the report originallycreated by Chino Khan. Saskia Santana CNP IMG US A BDOMEN documented in this encounter Visit Diagnoses Diagnosis Abdominal bloating Flatulence, eructation, and gas pain Abdominal bloating Flatulence, eructation, and gas pain documented in this encounter Additional Health Concerns [...] 9:26 AM EDT PHQ-2 Depression Total Score: 2 12/14/19 21 2:10 PM EDT documented as of this encounter Care Teams Domestic Technician Relationship Specialty Start Date End Date Ade Ramos MD, MPH [address] [place] [address] [email or web address] PCP - General Internal Medicine 05/29/20 03/12/23 Rosa Damico MD, MPH [address] [place] [address] [address] [place] [address] [email or web address] PCP - Resident PCP Internal Medicine 01/23/23 03/12/23 Alex Parks MD [address] [place] [address] [address] [place] [address] [email or web address] gorge PCP - General Internal Medicine 03/13/23 Mckayla Gregg MD [address] [place] [address] [address] [address] [email or web address] PCP - Resident PCP Internal Medicine 06/03/23 Ade Ramos MD, MPH [address] [place] [address] [address] [address] Kavya@[facility] Partners Attributed Provider 06/17/14 01/17/23 Alex Parks MD [address] [place] [address] [address] [place] [address] MADELIN@[email or web address]. du Partners Attributed Provider 04/18/23 06/20/23 Mckayla Gregg MD [address] [place] [address] [address] [address] [email or web address] Partners Attributed Provider 06/20/23 08/20/23 Alex Parks MD [address] [place] [address] [place] [address] MADELIN@[email or web address]. du Insurance Assigned Provider 07/18/23 Mckayla Gregg MD [address] [place] [address] [place] [address] [email or web address] Partners Attributed Provider 06/20/23 08/20/23 documented as of this encounter Additional Source Comments The information contained in this document represents components of the legal health record. It is not the complete legal health record.[facility]
--- OUTSIDE RECORDS SUMMARY | 2024-05-20 02:40 | XMS_ITS | Encounter Summary ---
Author Organization [facility] Address [phone] [facility] [place] [address] Care Team Providers Care Glass Lathe Operator Name Role Phone Ade Ramos MD, MPH Primary Care Provider [phone] Ade Ramos MD, MPH Unavailable + Ade [...] (Late st Contact Info) Description 02/28/2020 Procedure [facility] Outpatient Care, Radio Flouroscopy [address] [place] [address] Social History Tobacco Use Types Packs/Day Years [...] Procedure Pass CT, [facility] - [place] 80 [place] [address] 01/22/2024 Procedure Pass [address] [address] 06/17/2024 10:40 AM EST Office Visit [address] [address] Reza Early MD [address] [place] [address] [email or web address] .[facility] 06/17/2024 1:15 PM EST Appointment [address] [address] Ade Ramos MD, MPH [address] [place] [address] [email or web address]. [facility] 07/01/2024 11:15 AM EDT Office Visit [facility] Department of Orthopaedic Surgery, Podiatry Service [address] [address] Eber Calle DPM 98 [place] [address] [email or web address] 08/01/2024 2:20 PM EDT Office Visit [address] [address] Jaret Clemons MD 243 [facility] MEEI [place] [address] [email or web address] 08/09/2024 2:30 PM EDT Appointment [facility] Adult Medicine [address] [place] [address] Mckayla Gregg MD [address] [place] [address] [email or web address] 11/24/2024 8:[address], [facility] - [place] [address] [place] [address] Monet Carranza MD, PhD [address] [place] [address] SHANNAN@[facility] 11/29/2024 9:40 AM EDT Office Visit [facility] NEPH[facility]OLOGY (RENAL) [address] [facility] [address] [place] [address] Praveen Ball MD 55 [facility] CPZ-[address] [place] [address] CHANTALE@[email or web address] documented as of this encounter [...] documented as of this encounter Care Teams Glass Lathe Operator Relationship Specialty Start Date End Date Ade Ramos MD, MPH [address] [place] [address] [email or web address] PCP - General 10/11/13 04/28/20 Pcp, Unknown PCP - General 04/29/20 05/28/20 Ade Ramos MD, MPH [address] [place] [address] [email or web address] PCP - General Internal Medicine 05/29/20 03/12/23 Rosa Damico MD, MPH [address] [place] [address] [place] [address] [email or web address] PCP - Resident PCP Internal Medicine 01/23/23 03/12/23 Alex Parks MD [address] [place] [address] MADELIN@[email or web address]. gorge PCP - General Internal Medicine 03/13/23 Mckayla Gregg MD [address] [place] [address] [email or web address] PCP - Resident PCP Internal Medicine 06/03/23 Ade Ramos MD, MPH [address] [place] [address] [place] [address] [email or web address] Partners Attributed Provider 06/17/14 01/17/23 Ade Ramos MD, MPH [address] [place], [place] [address] [address] [email or web address] Insurance Assigned Provider 07/20/19 04/21/20 Alex Parks MD [address] [place], [place] [address] [address] [email or web address] du Partners Attributed Provider 04/18/23 06/20/23 Mckayla Gregg MD [address] [place], [place] [address] [address] [email or web address] Partners Attributed Provider 06/20/23 08/20/23 Alex Parks MD [address] [place] [address] MADELIN@[email or web address]. du Insurance Assigned Provider 07/18/23 Mckayla Gregg MD [address] [place], [place] [address] [address] [email or web address] Partners Attributed Provider 06/20/23 08/20/23 documented as of this encounter Additional Source Comments The information contained in this document represents components of the legal health record. It is not the complete legal health record.[facility]
--- OUTSIDE RECORDS SUMMARY | 2024-05-20 02:40 | XMS_ITS | Encounter Summary ---
Author Organization [facility] Address [phone] [facility] [place] [address] Care Team Providers Care Medical Research Associate Name Role Phone Alex Parks MD Primary Care Provider [phone] Mckayla Gregg MD Unavailable [phone] Alex Parks MD Unavailable [phone] Reason for Visit * Reason Onset Date Comments Medication Refill 05/03/2024 Encounter Details Date Type Department Care Team (Late st Contact Info) Description 05/03/2024 Refill [facility] Adult Medicine [address] [place] [address] Kaylynn Alvares LPN 151 [place] [address] [email or web address] Medication Refill Social History Tobacco Use [...] Procedure Pass CT, [facility] Imaging - [address] [address] 01/22/2024 Procedure Pass [address] [address] 06/17/2024 10:40 AM EST Office Visit [address] [address] Reza Early MD [address] [place] [address] Reza_[email or web address] .[facility] 06/17/2024 1:15 PM EST Appointment [facility] Breast [address] [address] Ade Ramos MD, MPH [address] [address] [email or web address]. [facility] 07/01/2024 11:15 AM EDT Office Visit [facility] Department of Orthopaedic Surgery, Podiatry Service 55 [facility] 3F [place] [address] Eber Calle, DPDianne [address] [place] [address] [email or web address] 08/01/2024 2:20 PM EDT Office Visit [facility] [address] [address] Jaret Clemons MD 243 [facility] [place] [address] Barrera@[email or web address] 08/09/2024 2:30 PM EDT Appointment [facility] Adult Medicine [address] [place] [address] Mckayla Gregg MD 151 [place] [address] [email or web address] 11/24/2024 8:[address], [facility] - [place] 80 [place] [address] Monet Carranza MD, PhD [address] [place] [address] SHANNAN@[email or web address] 11/29/2024 9:40 AM EDT Office Visit [facility] NEPHROLOGY (RENAL) 100 [facility] 16C [place] [address] Praveen Ball MD 55 [facility] CPZ-[address] [place] [address] CHANTALE@[email or web address] documented as of this encounter Visit Diagnoses Not on filedocumented in this encounter Additional Health Concerns Assessment Noted Time PHQ-9 Depression Total Score: 25 025 11:01 AM EST PHQ-2 Depression Total Score: 6 04/29/19 25 11:01 AM EST documented as of this encounter Care Teams Medical Research Associate Relationship Specialty Start Date End Date Alex Parks MD [address] [place] [address] [place] [address] [email or web address] [place] PCP - General Internal Medicine 03/13/23 Mckayla Gregg MD [address] [place] [address] [email or web address] PCP - Resident PCP Internal Medicine 06/03/23 Alex Parks MD [address] [place] [address] [email or web address] gorge Insurance Assigned Provider 07/18/23 documented as of this encounter Additional Source Comments The information contained in this document represents components of the legal health record. It is not the complete legal health record.[facility]
--- OUTSIDE RECORDS SUMMARY | 2024-05-20 02:40 | XMS_ITS | Encounter Summary ---
Author Organization [facility] Address [phone] [facility] [employer] [address] Care Team Providers Care Lead Ios Developer Name Role Phone Ade Ramos MD, MPH Unavailable + [phone] Pcp, Unknown Primary Care Provider Unavailabl e Ade Ramos MD, MPH Primary Care Provider [phone] Rosa Damico MD, MPH Unavailable + [phone] Alex Parks MD Primary Care Provider [phone] Alex Parks MD Unavailable + [phone] Mckayla Gregg MD Unavailable + 00 Mckayla Gregg MD Unavailable + 00 Alex Parks MD Unavailable + [phone] Mckayla Gregg MD Unavailable + [phone] Encounter Details Date Type Department Care Team (Late st Contact Info) Description 05/17/2020 Transcribe Orders [facility] Outpatient Care, Radio Flouroscopy [address] [place] [address] [email or web address] G Social History Tobacco Use Types Packs/Day [...] CT, [facility] Imaging - [place] 80 [place] [address] 01/22/2024 Procedure Pass [facility] Breast [facility] [address] [place] [address] 06/17/2024 10:40 AM EST Office Visit [address] [address] Reza Early MD [address] [place] [address] [email or web address] 06/17/2024 1:15 PM EST Appointment [facility] [address] [place] [address] Aed Ramos MD, MPH [address] [address] Kavya@[facility] 07/01/2024 11:15 AM EDT Office Visit [facility] Department of Orthopaedic Surgery, Podiatry Service [address] [place] [address] Eber Calle DPM 98 [place] [address] [email or web address] 08/01/2024 2:20 PM EDT Office Visit [facility] [address] [address] Jaret Clemons MD [address] [place] [address] [place] [address] Barrera@[facility] 08/09/2024 2:30 PM EDT Appointment [facility] [place] Adult Medicine [address] [place] [address] Mckayla Gregg MD [address] [place] [address] [email or web address] 11/24/2024 8:[address], [facility] - [place] [address] [place] [address] Monet Carranza MD, PhD 55 [place] [address] SHANNAN@[facility] 11/29/2024 9:40 AM EDT Office Visit [facility] [place] NE[facility]ROLOGY (RENAL) [address]rest[address] [facility] [address] [address] Praveen Ball MD [address] [place] [address] [place] [address] CHANTALE@[facility] documented as of this encounter [...] documented as of this encounter Care Teams Lead Ios Developer Relationship Specialty Start Date End Date Pcp, Unknown PCP - General 04/29/20 05/28/20 Ade Ramos MD, MPH [address] [place] [address] [address] [address] [email or web address] PCP - General Internal Medicine 05/29/20 03/12/23 Rosa Damico MD, MPH [address] [place] [address] [address] [address] [email or web address] PCP - Resident PCP Internal Medicine 01/23/23 03/12/23 Alex Parks MD [address] [place], [place] [address] [address] MADELIN@[email or web address].[facility] PCP - General Internal Medicine 03/13/23 Mckayla Gregg MD [address] [place] [address] [address] [address] [email or web address].[facility] PCP - Resident PCP Internal Medicine 06/03/23 Ade Ramos MD, MPH [address] [place] [address] [address] [address] Kavya@[facility] Partners Attributed Provider 06/17/14 01/17/23 Alex Parks MD [address] [place] [address] [place] [address] MADELIN@[email or web address]. du Partners Attributed Provider 04/18/23 06/20/23 Mckayla Gregg MD [address] [place] [address] [email or web address] Partners Attributed Provider 06/20/23 08/20/23 Alex Parks MD [address] [place] [address] MADELIN@[email or web address]. du Insurance Assigned Provider 07/18/23 Mckayla Gregg MD [address] [place] [address] [email or web address] Partners Attributed Provider 06/20/23 08/20/23 documented as of this encounter Additional Source Comments The information contained in this document represents components of the legal health record. It is not the complete legal health record.[facility]
--- OUTSIDE RECORDS SUMMARY | 2024-05-20 02:40 | XMS_ITS | Encounter Summary ---
Author Organization [facility] Address [phone] [facility] [place] [address] Care Team Providers Care Phototypesetter Operator Name Role Phone Alex Parks MD Primary Care Provider [phone] Mckayla Gregg MD Unavailable [phone] Alex Parks MD Unavailable [phone] Encounter Details Date Type Department Care Team (Late st Contact Info) Description 09/03/2023 Procedure Pass [facility] Imaging - RF/IR [address] [place] 2 [place] [address] Social History Tobacco Use Types Packs/Day Years Used Date Smoking Tobacco: Every Day Cigarettes 0.3 30 Smokeless Tobacco: Never Alcohol Use Standard Drinks/Week Comments Never 0 [...] with a working camera? Not on file Sex and Gender Information Value Date Recorded Sex Assigned at Female 10/22/2018 9:40 AM EDT Gender Identity Female 10/22/2018 9:40 AM EDT Sexual Orientation Straight 10/22/2018 9: 40 AM EDT documented as of this encounter Plan of Treatment Upcoming Encounters Date Type Department Care Team (Late st Contact Info) Description 11/25/[address] - [place] [address] [place] [address] 01/22/2024 Procedure Pass [facility] Breast [facility] [address] [place] [address] 06/17/2024 10:40 AM EST Office Visit [address] [address] Reza Early MD [address] [place] [address] [email or web address] 06/17/2024 1:15 PM EST Appointment [facility] [address] [place] [address] Ade Ramos MD, MPH [address] [place] [address] Kavya@[facility] 07/01/2024 11:15 AM EDT Office Visit [facility] Department of Orthopaedic Surgery, Podiatry Service [address] [place] [address] Eber Calle, DPM [address] [place] [address] [email or web address] 08/01/2024 2:20 PM EDT Office Visit [address] [address] Jaret Celmons MD [address] [place] [address] - [place] [address] Barrera@[email or web address] 08/09/2024 2:30 PM EDT Appointment [facility] Adult Medicine [address] [place] [address] Mckayla Gregg MD 151 [place] [address] [email or web address] 11/24/2024 8:[address], [facility] - [place] [address] [place] [address] Monet Carranza MD, PhD [address] [place] [address] [email or web address]@[facility] 11/29/2024 9:40 AM EDT Office Visit [facility] [place] NEPHROLOGY (RENAL) [address] [facility] [address] [place] [address] Praveen Ball MD [address] [place] [address] CHANTALE@[facility] documented as of this encounter Visit Diagnoses Not on filedocumented in this encounter Additional Health Concerns Infection Onset Date Last Indicated Resolved Time CoV-Risk Comment:Per Ambulatory Triage Form 02/11/2024 02/11/202402/21 1:23 AM EST Assessment Noted Time PHQ-9 Depression Total Score: 7 05/20/19 24 11:05 AM EST PHQ-2 Depression Total Score: 0 07/22/19 24 1:47 PM EDT documented as of this encounter Care Teams Phototypesetter Operator Relationship Specialty Start Date End Date Alex Parks MD [address] [place] [address] [place] [address] MADELIN@[email or web address] PCP - General Internal Medicine 03/13/23 Mckayla Gregg MD [address] [place] [address] [email or web address] PCP - Resident PCP Internal Medicine 06/03/23 Alex Parks MD [address] [place] [address] MADELIN@[email or web address]. du Insurance Assigned Provider 07/18/23 documented as of this encounter Additional Source Comments The information contained in this document represents components of the legal health record. It is not the complete legal health record.[facility]
--- OUTSIDE RECORDS SUMMARY | 2024-05-20 02:40 | XMS_ITS | Encounter Summary ---
Author Organization [facility] Address [phone] Count includes the [facility] [place] [address] Care Team Providers Care Ell Tutor Name Role Phone Ade Ramos MD, MPH Unavailable + [phone] Ade Ramos MD, MPH Primary Care Provider [phone] Rosa Damico MD, MPH Unavailable + [phone] Alex Parks MD Primary Care Provider +80 Alex Parks MD Unavailable + [phone] Mckayla Gregg MD Unavailable [phone] Mckayla Gregg MD Unavailable + 00 Alex Parks MD Unavailable + [phone] Mckayla Gregg MD Unavailable + 00 Encounter Details Date Type Department Care Team (Late st Contact Info) Description 09/22/2022 Procedure Pass MRI, [facility] Imaging - [place] [address] [place] [address] Social History Tobacco Use Types Packs/Day Years [...] Procedure Pass CT, [facility] - [address] [address] 01/22/2024 Procedure Pass [facility] Breast [address] [address] 06/17/2024 10:40 AM EST Office Visit [facility] [address] [address] Reza Early MD [address] [place] [address] [email or web address] 06/17/2024 1:15 PM EST Appointment [address] [address] Ade Ramos MD, MPH [address] [place] [address] [email or web address] [place] 07/01/2024 11:15 AM EDT Office Visit [facility] Department of Orthopaedic Surgery, Podiatry Service [address] [address] Eber Calle DPM [address] [place] [address] [email or web address] 08/01/2024 2:20 PM EDT Office Visit [facility] [address] [address] Jaret Clemons MD 243 [facility] [place] [address] Barrera@[facility] 08/09/2024 2:30 PM EDT Appointment [facility] Adult Medicine [address] [place] [address] Mckayla Gregg MD 151 [facility] [place] [address] [email or web address] 11/24/2024 8:[address], [facility] - [place] [address] [place] [address] Monet Carranza MD, PhD 55 [place] [address] SHANNAN@[facility] 11/29/2024 9:40 AM EDT Office Visit [facility] NEPHROLOGY (RENAL) [address] [facility] [address] [place] [address] Praveen Ball MD 55 [facility] CPZ-302 [place] [address] CHANTALE@[email or web address] documented as of this encounter Visit Diagnoses Not on filedocumented in this encounter Additional Health Concerns Infection Onset Date Last Indicated Resolved Time CoV-Risk Comment:Per Ambulatory Triage Form 11/14/2022 11/14/202211/25 1:23 AM EDT CoV-Risk Comment:Per Ambulatory Triage Form 02/11/2024 02/11/202402/21 1:23 AM EST Assessment Noted Time PHQ-9 Depression Total Score: 7 07/16/19 16 9:26 AM EDT PHQ-2 Depression Total Score: 0 08/05/19 23 11:44 AM EDT documented as of this encounter Care Teams Ell Tutor Relationship Specialty Start Date End Date Ade Ramos MD, MPH [address] [place] [address] [place] [address] [email or web address] PCP - General Internal Medicine 05/29/20 03/12/23 Rosa Damico MD, MPH [address] [place], [place] [address] [address] [email or web address] PCP - Resident PCP Internal Medicine 01/23/23 03/12/23 Alex Parks MD [address] [place] [address] [place] [address] MADELIN@[email or web address] [place] [email or web address].[email or web address] PCP - General Internal Medicine 03/13/23 Mckayla Gregg MD [address] [place] [address] [place] [address] [email or web address] PCP - Resident PCP Internal Medicine 06/03/23 Ade Ramos MD, MPH [address] [place] [address] [place] [address] [email or web address] Partners Attributed Provider 06/17/14 01/17/23 Alex Parks MD [address] [place] [address] [place] [address] [email or web address] du Partners Attributed Provider 04/18/23 06/20/23 Mckayla Gregg MD [address] [place] [address] [email or web address] Partners Attributed Provider 06/20/23 08/20/23 Alex Parks MD [address] [place] [address] MADELIN@[email or web address] du Insurance Assigned Provider 07/18/23 Mckayla Gregg MD [address] [place] [address] [email or web address] Partners Attributed Provider 06/20/23 08/20/23 documented as of this encounter Additional Source Comments The information contained in this document represents components of the legal health record. It is not the complete legal health record.[facility]
--- OUTSIDE RECORDS SUMMARY | 2024-05-20 02:40 | XMS_ITS | Encounter Summary ---
Author Organization [facility] Address [phone] [facility] [place] [address] Care Team Providers Care Adjuster Name Role Phone Heather Ramos MD, MPH Primary Care Provider [phone] Heather Ramos MD, MPH Unavailable + Heather Ramos MD, MPH Unavailable + Pcp, Unknown Primary Care Provider Unavailabl e Heather Ramos MD, MPH Primary Care Provider +[phone] Rosa Damico MD, MPH Unavailable + Alex Parks MD Primary Care Provider + Alex Parks MD Unavailable + Mckayla Gregg MD Unavailable + 00 Mckayla Gregg MD Unavailable + 00 Alex Parks MD Unavailable + Mckayla Gregg MD Unavailable + 00 Encounter Details Date Type Department Care Team (Late st Contact Info) Description 12/11/2015 Ancillary Orders [facility] Adult Medicine [address] [place] [address] Heather Ramos MD, MPH [address] [address] [email or web address] Syncope, unspecified (Primary Dx); Palpitations Social History Tobacco Use Types Packs/Day Years [...] Procedure Pass CT, [facility] - [place] 80 [place] [address] 01/22/2024 Procedure Pass [facility] 300 [facility] [place] [address] 06/17/2024 10:40 AM EST Office Visit [facility] [address] [address] Reza Early MD [address] [place] [address] [email or web address] 06/17/2024 1:15 PM EST Appointment [facility] Breast [facility] [address] [place] [address] Heather Ramos MD, MPH [address] [address] Kavya@[facility] 07/01/2024 11:15 AM EDT Office Visit [facility] Department of Orthopaedic Surgery, Podiatry Service [address] [address] Eber Calle, ISAACM [address] [place] [address] [email or web address] 08/01/2024 2:20 PM EDT Office Visit [facility] [address] [address] Jaret Clemons MD 243 [place] [address] [email or web address] 08/09/2024 2:30 PM EDT Appointment [facility] Adult Medicine 151 [place] [address] Mckayla Gregg MD 151 [place] [address] [email or web address] 11/24/2024 8:[address], [facility] - [place] 80 [place] [address] Monet Carranza MD, PhD [address] [place] [address] SHANNAN@[email or web address] 11/29/2024 9:40 AM EDT Office Visit [facility] NEPHROLOGY (RENAL) 100 [facility] [address] [place] [address] Praveen Ball MD 55 [facility] CPZ-302 [place] [address] [email or web address] documented as of this encounter Results * Holter Monitor 24 Hours (12/20/2015 12:41 PM EDT) Anatomical Region Laterality Modality Heart Other 12/20/2015 12:4 1 PM EDT Narrative 12/28/2015 11:07 PM EDT [facility] EP SERVICE [facility] FINAL REPORT Case Identification Patient Name:BRITTANY TREVINO ? Case Date:12-20-2015 ?Referring MD:HEATHER Cavanaugh Attending MD:Enrique Peters M.D. Fellow MD:Jhony Araiza MD Indication(s): ?Palpitations Procedure(s): ?Holter recording per 24 hrs. ?Scan analysis with report per 24 hrs. Conclusions: ?1. Sinus rhythm, average heart rate was 84 BPM. The minimum heart rate ? was 63 BPM, occurring at 1:22:03 PM. The maximum heart rate was 122 ? BPM, occurring at 4:42:05 AM. ? 2. Rare ventricular ectopic activity consisted of 1 beat, of which, 1 ? was in single PVCs. ? 3. Rare supraventricular ectopic activity consisted of 4 beats, of ? which, 4 were single PACs. ? 4. Diary events correlated. Symptoms of nausea, shortness of breath, ? dizziness and chest discomfort reported. No arrhythmia seen. Analysis Summary: Recording Length:23 hours 30 minutes Recording Part (if multi-stage): APC:4 SVT Runs:0 Bradycardia:0 Dropped Beats:0 Pauses:. Longest:1 sec at:1:22 PM VE Total:1 Isolated PVC:1 V Couplet:0 V Triplet:0 V Run:0 VTs:0 Maximum Heart Rate:122 bpm at:4:42 AM Mean Heart Rate:84 bpm Minimum Heart Rate:63 bpm at:1:22 PM QRS Total:532429. Paced beats: ?Enrique Peters M.D. personally reviewed the data relevant to the ? interpretation of this study and agrees with the findings. This report has been electronically signed by Lorraine Nunez Procedure Note Enrique Peters MD, PhD - 12/28/2015 [facility] FINAL REPORT Case Identification Patient Name:BRITTANY TREVINO Case Date:12-20-2015 Referring MD:HEATHER Cavanaugh Attending MD:Enrique Peters M.D. Fellow MD:Jhony Araiza MD Indication(s): Palpitations Procedure(s): Holter recording per 24 hrs. Scan analysis with report per 24 hrs. Conclusions: 1. Sinus rhythm, average heart rate was 84 BPM. The minimum heart rate was 63 BPM, occurring at 1:22:03 PM. The maximum heart rate was 122 BPM, occurring at 4:42:05 AM. 2. Rare ventricular ectopic activity consisted of 1 beat, of which, 1 was in single PVCs. 3. Rare supraventricular ectopic activity consisted of 4 beats, of which, 4 were single PACs. 4. Diary events correlated. Symptoms of nausea, shortness of breath, dizziness and chest discomfort reported. No arrhythmia seen. Analysis Summary: Recording Length:23 hours 30 minutes Recording Part (if multi-stage): APC:4 SVT Runs:0 Bradycardia:0 Dropped Beats:0 Pauses:. Longest:1 sec at:1:22 PM VE Total:1 Isolated PVC:1 V Couplet:0 V Triplet:0 V Run:0 VTs:0 Maximum Heart Rate:122 bpm at:4:42 AM Mean Heart Rate:84 bpm Minimum Heart Rate:63 bpm at:1:22 PM QRS Total:862238. Paced beats: Enrique Peters M.D. personally reviewed the data relevant to the interpretation of this study and agrees with the findings. This report has been electronically signed by Lorraine Nunez Heather Ramos MD, MPH CV CARDIAC SERVICE S ORDERABLES documented in this encounter Visit Diagnoses Diagnosis Syncope, unspecified- Primary Palpitations Syncope, unspecified Palpitations documented in this encounter Additional Health Concerns [...] documented as of this encounter Care Teams Adjuster Relationship Specialty Start Date End Date Heather Ramos MD, MPH [address] [place] [address] [email or web address] PCP - General 10/11/13 04/28/20 Pcp, Unknown PCP - General 04/29/20 05/28/20 Heather Ramos MD, MPH [address] [place] [address] [email or web address] PCP - General Internal Medicine 05/29/20 03/12/23 Rosa Damico MD, MPH [address] [place] [address] [email or web address] PCP - Resident PCP Internal Medicine 01/23/23 03/12/23 Alex Parks MD [address] [place] [address] [email or web address] [place] PCP - General Internal Medicine 03/13/23 Mckayla Gregg MD [address] [place], [place] [address] [place] [address] [email or web address] PCP - Resident PCP Internal Medicine 06/03/23 Heather Ramos MD, MPH [address] [place], [place] [address] [place] [address] [email or web address]@[facility] Partners Attributed Provider 06/17/14 01/17/23 Heather Ramos MD, MPH [address] [place] [address] [place] [address] [email or web address] Insurance Assigned Provider 07/20/19 04/21/20 Alex Parks MD [address] [place] [address] [place] [address] MADELIN@[email or web address]. du Partners Attributed Provider 04/18/23 06/20/23 Mckayla Gregg MD [address] [place], [place] [address] [place] [address] [email or web address] Partners Attributed Provider 06/20/23 08/20/23 Alex Parks MD [address] [place] [address] [place] [address] MADELIN@[email or web address]. du Insurance Assigned Provider 07/18/23 Mckayla Gregg MD [address] [place], [place] [address] [place] [address] [email or web address] Partners Attributed Provider 06/20/23 08/20/23 documented as of this encounter Additional Source Comments The information contained in this document represents components of the legal health record. It is not the complete legal health record.[facility]
--- OUTSIDE RECORDS SUMMARY | 2024-05-20 02:40 | XMS_ITS | Encounter Summary ---
Author Organization [facility] Address [phone] [facility] [place] [address] Care Team Providers Care Electric Container Tester Name Role Phone Ade Ramos MD, MPH Unavailable +[phone] Ade Ramos MD, MPH Primary Care Provider [phone] Rosa Damico MD, MPH Unavailable + [phone] Alex Parks MD Primary Care Provider +80 Alex Parks MD Unavailable + [phone] Mckayla Gregg MD Unavailable + 00 Mckayla Gregg MD Unavailable + 00 Alex Parks MD Unavailable + 9 Mckayla Gregg MD Unavailable + 00 Encounter Details Date Type Department Care Team (Late st Contact Info) Description 10/03/2021 Procedure Pass [facility] Cardiology [address], [place] [address] [place] [address] Social History Tobacco Use Types Packs/Day Years Used Date Smoking Tobacco: Former Cigarettes 0.3 30 Smokeless Tobacco: Never Alcohol [...] CT, [facility] - [place] [address] [place] [address] 01/22/2024 Procedure Pass [facility] Breast [facility] 300 [place] [address] 06/17/2024 10:40 AM EST Office Visit [facility] [address] [address] Reza Early MD [address] [place] [address] [email or web address]@[email or web address] 06/17/2024 1:15 PM EST Appointment [facility] [address] [place] [address] Ade Ramos MD, MPH [address] [address] [email or web address] 07/01/2024 11:15 AM EDT Office Visit [facility] Department of Orthopaedic Surgery, Podiatry Service [address] [address] Eber Calle, DPDianne 98 [place] [address] [email or web address] 08/01/2024 2:20 PM EDT Office Visit [facility] [address] [address] Jaret Clemons MD [address] [place] [address] [place] [address] [email or web address] 08/09/2024 2:30 PM EDT Appointment [facility] [place] Adult Medicine [address] [place] [address] Mckayla Gregg MD 151 [facility] [address] [place] [address] [email or web address] 11/24/2024 8:[address], [facility] - [place] [address] [place] [address] Monet Carranza MD, PhD [address] [place] [address] SHANNAN@[email or web address] 11/29/2024 9:40 AM EDT Office Visit [facility] NEPHROLOGY (RENAL) [address] [facility] [address] [place] [address] Praveen Ball MD [address] [place] [address] [place] [address] CHANTALE@[email or web address] documented as of this encounter Visit [...] documented as of this encounter Care Teams Electric Container Tester Relationship Specialty Start Date End Date Ade Ramos MD, MPH [address] [place] [address] [address] [place] [address] [email or web address]@[email or web address] PCP - General Internal Medicine 05/29/20 03/12/23 Rosa Damico MD, MPH [address] [place] [address] [address] [place] [address] [email or web address] PCP - Resident PCP Internal Medicine 01/23/23 03/12/23 Alex Parks MD [address] [place] [address] [address] [place] [address] MADELIN@[email or web address] gorge PCP - General Internal Medicine 03/13/23 Mckayla Gregg MD [address] [place] [address] [address] [place] [address] [email or web address] PCP - Resident PCP Internal Medicine 06/03/23 Ade Ramos MD, MPH [address] [place] [address] [address] [address] Kavya@[facility] Partners Attributed Provider 06/17/14 01/17/23 Alex Parks MD [address] [place] [address] [address] [place] [address] MADELIN@[email or web address] du Partners Attributed Provider 04/18/23 06/20/23 Mckayla Gregg MD [address] [place] [address] [address] [address] [email or web address] Partners Attributed Provider 06/20/23 08/20/23 Alex Parks MD [address] [place] [address] [place] [address] MADELIN@[email or web address].[employer]. du Insurance Assigned Provider 07/18/23 Mckayla Gregg MD [address] [place] [address] [email or web address].[employer] Partners Attributed Provider 06/20/23 08/20/23 documented as of this encounter Additional Source Comments The information contained in this document represents components of the legal health record. It is not the complete legal health record.[facility]
--- OUTSIDE RECORDS SUMMARY | 2024-05-20 02:40 | XMS_ITS | Encounter Summary ---
Author Organization [facility] Address [phone] [facility] [place] [address] Care Team Providers Care Database Manager Name Role Phone Alex Parks MD Primary Care Provider [phone] Mckayla Gregg MD Unavailable [phone] Alex Parks MD Unavailable [phone] Encounter Details Date Type Department Care Team (Latest Contact Info) Description 05/10/2024 11:44 AM EST - 05/10/2024 11:59 PM EST Hospital Encounter [facility] [id number] [address] [place] [address] Discharge Disposition: Home or Self Care Social [...] NEBULIZER TWICE DAILY 60 mL 11 04/05/2024 albuterol 90 mcg/actuation inhalerIndications:Mild intermittent asthma without complication Inhale 2 puffs into the lungs every 4 (four) hours as needed for wheezing or shortness of breath/dyspnea (cough). 18 g 3 05/04/2024 alirocumab (PRALUENT) 150 mg/mL subcutaneous pen injectorIndications:Famili [...] before meals. 200 strip 3 02/04/2024 blood-glucose meter kit Use as instructed 1 kit 1 05/04/2024 blood-glucose meter,continuous (DEXCOM G6 PLANT OPERATIONS COORDINATOR) MiscIndications:Type 1 diabetes mellitus with diabetic polyneuropathy [...] mg by mouth nightly at bedtime. 10/18/2019 documented as of this encounter Plan of Treatment Upcoming Encounters Date Type Department Care Team (Late st Contact Info) Description 11/25/[address] - [place] [address] [place] [address] 01/22/2024 Procedure Pass [facility] [address] [place] [address] 06/17/2024 10:40 AM EST Office Visit [address] [address] Reza Early MD [address] [place] [address] Aquiles@[facility] 06/17/2024 1:15 PM EST Appointment [facility] [address] [place] [address] Ade Ramos MD, MPH [address] [address] [place] [address] Kavya@[facility] 07/01/2024 11:15 AM EDT Office Visit [facility] Department of Orthopaedic Surgery, Podiatry Service [address] [place] [address] Eber Calle, MARIAJOSE [address] [place] [address] [email or web address] 08/01/2024 2:20 PM EDT Office [facility] [address] [address] Jaret Clmeons MD [address] [place] [address] [place] [address] Barrera@[email or web address] 08/09/2024 2:30 PM EDT Appointment [facility] [place] Adult Medicine [address] [place] [address] Mckayla Gregg MD [address] [place] [address] [email or web address] 11/24/2024 8:[address], [facility] - [place] [address] [place] [address] Monet Carranza MD, PhD [address] [place] [address] SHANNAN@[facility] 11/29/2024 9:40 AM EDT Office Visit [facility] [place] NEPHROLOGY (RENAL) [address] [facility] [address]C [address] [place] [address] Praveen Ball MD [address] [place] [address] [place] [address] CHANTALE@[email or web address] documented as of this encounter Procedures Procedure Name Priority Date/Time Associated Diagnosis Comments BASIC METABOLIC PANEL Routine 05/10/2024 11:45 AM EST YURY (acute kidney injury) documented in this encounter Results * (ABNORMAL) Basic metabolic [...] Praveen Ball MD LAB BLOO D ORDERABLES [facility] [place] [address] [place] [address] documented in this encounter Visit Diagnoses Diagnosis YURY (acute kidney injury) documented in this encounter Additional Health Concerns Assessment Noted Time PHQ-9 Depression Total Score: 25 025 11:01 AM EST PHQ-2 Depression Total Score: 6 04/29/19 25 11:01 AM EST documented as of this encounter Care Teams Database Manager Relationship Specialty Start Date End Date Alex Parks MD [address] [place] [address] MADELIN@[email or web address] [place] PCP - General Internal Medicine 03/13/23 Mckayla Gregg MD [address] [place] [address] [email or web address] PCP - Resident PCP Internal Medicine 06/03/23 Alex Parks MD [address] [place] [address] MADELIN@[facility]. gorge Insurance Assigned Provider 07/18/23 documented as of this encounter Additional Source Comments The information contained in this document represents components of the legal health record. It is not the complete legal health record.[facility]
--- OUTSIDE RECORDS SUMMARY | 2024-05-20 02:40 | XMS_ITS | Encounter Summary ---
Author Organization [facility] Address [phone] [facility] [email or web address] [address] Care Team Providers Care Children'S Aide Name Role Phone Alex Parks MD Primary Care Provider + [phone] Alex Parks MD Unavailable [phone] Mckayla Gregg MD Unavailable [phone] Mckayla Gregg MD Unavailable [phone] Alex Parks MD Unavailable [phone] Mckayla Gregg MD Unavailable [phone] Encounter Details Date Type Department Care Team (Late st Contact Info) Description 05/29/[address], [facility] [place] [address] [place] [address] Social History Tobacco Use Types Packs/Day Years [...] Procedure Pass CT, [facility] [place] 80 [place] [address] 01/22/[address] [facility] [address] [place] [address] 06/17/2024 10:40 AM EST Office Visit [address] [address] Reza Early MD 243 [place] [address] [email or web address] 06/17/2024 1:[address] [facility] [address] [place] [address] Ade Ramos MD, MPH [address] [place] [address] [email or web address] 07/01/2024 11:15 AM EDT Office Visit [facility] Department of Orthopaedic Surgery, Podiatry Service [address] [address] Eber Calle DPM 98 [place] [address] [email or web address] 08/01/2024 2:20 PM EDT Office Visit [facility] [address] [address] Jaret Clemons MD [address] [place] [address] [place] [address] Barrera@[email or web address] 08/09/2024 2:30 PM EDT Appointment [facility] [place] [facility] [address] [place] [address] Mckayla Gregg MD 151 [facility] [address] [email or web address] 11/24/2024 8:[address], [facility] [place] [address] [place] [address] Monet Carranza MD, PhD 55 [place] [address] SHANNAN@[email or web address] 11/29/2024 9:40 AM EDT Office Visit [facility] NEPHROLOGY (RENAL) 100 [address] [facility] [address] [place] [address] Praveen Ball MD 55 [facility] CPZ-302 [place] [address] [email or web address] documented as of this encounter Visit Diagnoses Not on filedocumented in this encounter Additional Health Concerns Infection Onset Date Last Indicated Resolved Time CoV-Risk Comment:Per Ambulatory Triage Form 02/11/2024 02/11/202402/21 1:23 AM EST Assessment Noted Time PHQ-9 Depression Total Score: 7 05/20/19 24 11:05 AM EST PHQ-2 Depression Total Score: 4 05/20/19 24 11:05 AM EST documented as of this encounter Care Teams Children'S Aide Relationship Specialty Start Date End Date Alex Parks MD 151 [facility] C[address] [place] [address] MADELIN@[email or web address] [place] PCP - General Internal Medicine 03/13/23 Mckayla Gregg MD [address] [place] [address] [place] [address] [email or web address] PCP - Resident PCP Internal Medicine 06/03/23 Alex Parks MD [address] [place] [address] [place] [address] MADELIN@[email or web address] du Partners Attributed Provider 04/18/23 06/20/23 Mckayla Gregg MD [address] [place] [address] [place] [address] [email or web address] Partners Attributed Provider 06/20/23 08/20/23 Alex Parks MD [address] [place] [address] [place] [address] MADELIN@[email or web address]. du Insurance Assigned Provider 07/18/23 Mckayla Gregg MD [address] [place] [address] [email or web address] Partners Attributed Provider 06/20/23 08/20/23 documented as of this encounter Additional Source Comments The information contained in this document represents components of the legal health record. It is not the complete legal health record.[facility]
--- OUTSIDE RECORDS SUMMARY | 2024-05-20 02:40 | XMS_ITS | Encounter Summary ---
Author Organization [facility] Address [phone] [facility] [place] [address] Care Team Providers Care Patient Escort Name Role Phone Alex Parks MD Primary Care Provider + [phone] Mckayla Gregg MD Unavailable [phone] Alex Parks MD Unavailable [phone] Encounter Details Date Type Department Care Team (Late st Contact Info) Description 05/04/2024 Orders Only [facility] Adult Medicine 151 [place] [address] Alex Parks MD [address] [id number] MADELIN@[email or web address] Mild intermittent asthma without complication (Primary Dx) Social History Tobacco Use Types [...] Procedure Pass CT, [facility] [place] 80 [place] [address] 01/22/2024 Procedure Pass [facility] Breast [address] [address] 06/17/2024 10:40 AM EST Office Visit [address] [address] Reza Early MD [address] [place] [address] [email or web address] 06/17/2024 1:15 PM EST Appointment [address] [place] [address] Ade Ramos MD, MPH [address] [address] [email or web address] 07/01/2024 11:15 AM EDT Office Visit [facility] Department of Orthopaedic Surgery, Podiatry Service 55 [facility] 3F [place] [address] Eber Calle, DPM [address] [place] [address] [email or web address] 08/01/2024 2:20 PM EDT Office Visit [facility] [address] [address] Jaret Clemons MD 243 [place] [address] [email or web address] 08/09/2024 2:30 PM EDT Appointment [facility] Adult Medicine 151 [place] [address] Mckayla Gregg MD 151 [place] [address] [email or web address] 11/24/2024 8:[address] [place] 80 [place] [address] Monet Carranza MD, PhD 55 [place] [address] SHANNAN@[email or web address] 11/29/2024 9:40 AM EDT Office Visit [facility] NEPHROLOGY (RENAL) 100 [facility] [address] [place] [address] Praveen Blal MD 55 [facility] CPZ-302 [place] [address] CHANTALE@[email or web address] documented as of this encounter Visit Diagnoses Diagnosis Mild intermittent asthma without complication- Primary documented in this encounter Additional Health Concerns Assessment Noted Time PHQ-9 Depression Total Score: 25 025 11:01 AM EST PHQ-2 Depression Total Score: 6 04/29/19 25 11:01 AM EST documented as of this encounter Care Teams Patient Escort Relationship Specialty Start Date End Date Alex Parks MD [address] [place], [place] [address] [address] [email or web address] PCP - General Internal Medicine 03/13/23 Mckayla Gregg MD [address] [place], [place] [address] [place] [address] [email or web address] PCP - Resident PCP Internal Medicine 06/03/23 Alex Parks MD [address] [place] [address] [place] [address] [email or web address] [place] Insurance Assigned Provider 07/18/23 documented as of this encounter Additional Source Comments The information contained in this document represents components of the legal health record. It is not the complete legal health record.[facility]
--- OUTSIDE RECORDS SUMMARY | 2024-05-20 02:40 | XMS_ITS | Encounter Summary ---
Author Organization [facility] Address [phone] [facility] [place] [address] Care Team Providers Care Business Mgr Name Role Phone Ade Ramos MD, MPH [...] Care Team (Late st Contact Info) Description 04/20/2020 Procedure Pass [email or web address] Breast Evaluation [address] [place] [address] [place] [phone] Social History Tobacco Use Types Packs/Day Years [...] CT, [facility] [place] 80 [place] [address] 01/22/2024 Procedure Pass [address] [address] 06/17/2024 10:40 AM EST Office Visit [address] [address] Reza Early MD [address] [place] [address] [email or web address] 06/17/2024 1:15 PM EST Appointment [address] [address] Ade Ramos MD, MPH [address] [place] [address] [email or web address]@[email or web address] 07/01/2024 11:15 AM EDT Office Visit [facility] Department of Orthopaedic Surgery, Podiatry Service [address] [address] Eber Calle DPM [address] [place] [address] [email or web address] 08/01/2024 2:20 PM EDT Office Visit [address] [address] Jaret Clemons MD 243 [facility] MEEI [place] [address] Barrera@[email or web address] 08/09/2024 2:30 PM EDT Appointment [facility] Adult Medicine [address] [place] [address] Mckayla Gregg MD 151 [place] [address] [email or web address] 11/24/2024 8:[address], [facility] [place] [address] [place] [address] Monet Carranza MD, PhD [address] [place] [address] SHANNAN@[email or web address] 11/29/2024 9:40 AM EDT Office Visit [facility] NEPH[facility]OLOGY (RENAL) 100 [address] [facility] [address] [place] [address] Praveen Ball MD 55 [facility] CPZ-302 [place] [address] CHANTALE@[email or web address] documented as of this encounter Visit [...] documented as of this encounter Care Teams Business Mgr Relationship Specialty Start Date End Date Ade Ramos MD, MPH [address] [place] [address] Kavya@[facility] PCP - General 10/11/13 04/28/20 Pcp, Unknown PCP - General 04/29/20 05/28/20 Ade Ramos MD, MPH [address] [place] [address] Kavya@[email or web address] PCP - General Internal Medicine 05/29/20 03/12/23 Rosa Damico MD, MPH [address] [place] [address] [email or web address] PCP - Resident PCP Internal Medicine 01/23/23 03/12/23 Alex Parks MD [address] [place] [address] [email or web address] [place] PCP - General Internal Medicine 03/13/23 Mckayla Gregg MD [address] [place] [address] [email or web address] PCP - Resident PCP Internal Medicine 06/03/23 Ade Ramos MD, MPH [address] [place] [address] [address] Kavya@[email or web address] Partners Attributed Provider 06/17/14 01/17/23 Ade Ramos MD, MPH [address] [place], [place] [address] [address] Kavya@[email or web address] Insurance Assigned Provider 07/20/19 04/21/20 Alex Parks MD [address] [place], [place] [address] [address] MADELIN@[email or web address] Partners Attributed Provider 04/18/23 06/20/23 Mckayla Gregg MD [address] [place] [address] [address] [address] [email or web address] Partners Attributed Provider 06/20/23 08/20/23 Alex Parks MD [address] [place] [address] [address] MADELIN@[email or web address] Insurance Assigned Provider 07/18/23 Mckayla Gregg MD [address] [place] [address] [address] [address] [email or web address] Partners Attributed Provider 06/20/23 08/20/23 documented as of this encounter Additional Source Comments The information contained in this document represents components of the legal health record. It is not the complete legal health record.[facility]
--- OUTSIDE RECORDS SUMMARY | 2024-05-20 02:40 | XMS_ITS | Encounter Summary ---
Author Organization [facility] Address [phone] Replaced by [facility] [employer] [place] [address] Care Team Providers Care Fabric Pattern Grader Name Role Phone Ade Ramos MD, MPH Primary Care Provider [phone] Ade Ramos MD, MPH Unavailable + Ade [...] Team (Late st Contact Info) Description 04/20/2020 Ancillary Orders [facility] Adult Medicine [address] [place] [address] Ade Ramos MD, MPH [address] [address] [email or web address] Screening breast examination Social History Tobacco Use Types Packs/Day Years Used Date Smoking Tobacco: Every Day Cigarettes 0.3 30 Smokeless Tobacco: Never Alcohol Use Standard Drinks/Week Comments No 0 (1 standard drink = 0.6 oz pur e alcohol) Sex and Gender Information Value Date Recorded Sex Assigned at Female 10/22/2018 9:40 AM EDT Gender Identity Female 10/22/2018 9:40 AM EDT Sexual Orientation Straight 10/22/2018 9 :40 AM EDT documented as of this encounter Plan of Treatment Upcoming Encounters Date Type Department Care Team (Late st Contact Info) Description 11/25/[address] [place] 80 [place] [address] 01/22/2024 Procedure Pass [facility] Breast [facility] 300 [place] [address] 06/17/2024 10:40 AM EST Office Visit [facility] [address] [address] Reza Early MD [address] [place] [address] [email or web address] 06/17/2024 1:15 PM EST Appointment [facility] Breast Imaging [facility] 300 [place] [address] Ade Ramos MD, MPH [address] [place] [address] Kavya@[facility] 07/01/2024 11:15 AM EDT Office Visit [facility] Department of Orthopaedic Surgery, Podiatry Service [address] [address] Eber Calle DPM 98 [place] [address] [email or web address] 08/01/2024 2:20 PM EDT Office Visit [facility] [address] [address] Jaret Clemons MD 243 [place] [address] Barrera@[email or web address] 08/09/2024 2:30 PM EDT Appointment [facility] Adult Medicine 151 [facility] [place] [address] Mckayla Gregg MD 151 [place] [address] [email or web address] 11/24/2024 8:[address] [place] 80 [place] [address] Monet Carranza MD, PhD [address] [place] [address] [email or web address] 11/29/2024 9:40 AM EDT Office Visit [facility] NEPHROLOGY (RENAL) 100 [facility] 16[address] [place] [address] Praveen Ball MD 55 [facility] [place] [address] [email or web address] documented as of this encounter Results * BI MAMMOGRAM SCREENING WITH TOMOSYNTHESIS WITH CAD (BILATERAL) (05/10/2020 2:19 PM EST) Anatomical Region Laterality Modality Breast Left, Breast Right, Breast Bilateral Bila teral Mammography 05/10/2020 Impressions 05/10/2020 2:23 PM EST There is no specific mammographic evidence of malignancy. BI-RADS Category 1: Negative Patient's information is entered into a reminder system with a target due date for the next mammogram. Narrative 05/10/2020 2:23 PM EST INDICATION FOR EXAM: Screening. PROCEDURE: The following standard mammographic and tomosynthesis views were obtained: craniocaudal and mediolateral oblique. Computer-aided detection was utilized by the radiologist in the interpretation of this examination. BILATERAL MAMMOGRAM: The present study is compared to previous imaging. There are scattered fibroglandular densities. No suspicious masses, calcifications or other abnormalities are seen in either breast. Procedure Note Sid Vicente MD, PhD - 05/10/2020 INDICATION FOR EXAM: Screening. PROCEDURE: The following [...] a target duedate for the next mammogram. Ade Ramos MD, MPH IMG MG EXAMS documented in this encounter Visit Diagnoses Diagnosis Screening breast examination Other screening breast examination Screening breast examination Other screening breast examination documented in this encounter Additional Health Concerns [...] documented as of this encounter Care Teams Fabric Pattern Grader Relationship Specialty Start Date End Date Ade Ramos MD, MPH [address] [place] [address] [place] [address] [email or web address] PCP - General 10/11/13 04/28/20 Pcp, Unknown PCP - General 04/29/20 05/28/20 Ade Ramso MD, MPH [address] [place] [address] [place] [address] [email or web address] PCP - General Internal Medicine 05/29/20 03/12/23 Rosa Damico MD, MPH [address] [place] [address] [place] [address] [email or web address] PCP - Resident PCP Internal Medicine 01/23/23 03/12/23 Alex Parks MD [address] [place] [address] [place] [address] [email or web address] [place] PCP - General Internal Medicine 03/13/23 Mckayla Gregg MD [address] [place], [place] [address]DANELLE herrera [address] [email or web address] PCP - Resident PCP Internal Medicine 06/03/23 Ade Ramos MD, MPH [address] [place] [address] [place] [address] [email or web address] Partners Attributed Provider 06/17/14 01/17/23 Ade Ramos MD, MPH [address] [place], [place] [address] [address] [email or web address]@[email or web address] Insurance Assigned Provider 07/20/19 04/21/20 Alex Parks MD [address] [place] [address] [place] [address] MADELIN@[email or web address] Partners Attributed Provider 04/18/23 06/20/23 Mckayla Gregg MD [address] [place] [address] [place] [address] [email or web address] Partners Attributed Provider 06/20/23 08/20/23 Alex Parks MD [address] [place] [address] [place] [address] MADELIN@[email or web address]. du Insurance Assigned Provider 07/18/23 Mckayla Gregg MD [address] [place], [place] [address]D[place]ELLE chaney [address] [email or web address] Partners Attributed Provider 06/20/23 08/20/23 documented as of this encounter Additional Source Comments The information contained in this document represents components of the legal health record. It is not the complete legal health record.[facility]
--- OUTSIDE RECORDS SUMMARY | 2024-05-20 02:41 | XMS_ITS | Encounter Summary ---
Author Organization [facility] Address [phone] [facility] [place] [address] Care Team Providers Care Farmworker Brooder Farm Name Role Phone Ade Ramos MD, MPH Unavailable +[phone] Ade Ramos MD, MPH Primary Care Provider [phone] Rosa Damico MD, MPH Unavailable + [phone] Alex Parks MD Primary Care Provider +[phone] Alex Parks MD Unavailable + [phone] Mckayla Gregg MD Unavailable + 00 Mckayla Gregg MD Unavailable + 00 Alex Parks MD Unavailable + 9 Mckayla Gregg MD Unavailable + 00 Encounter Details Date Type Department Care Team (Late st Contact Info) Description 02/06/2022 Procedure Pass [facility] 15 [facility] Care [facility] 240 [place] [address] Social History Tobacco Use Types Packs/Day Years [...] CT, [facility] [place] [address] [place] [address] 01/22/2024 Procedure Pass [facility] 300 [place] [address] 06/17/2024 10:40 AM EST Office Visit [address] [place] [address] [address] Reza Early MD [address] [place] [address] [email or web address] 06/17/2024 1:15 PM EST Appointment [facility] 300 [place] [address] Ade Ramos MD, MPH [address] [place] [address] Kavya@[facility] 07/01/2024 11:15 AM EDT Office Visit [facility] Department of Orthopaedic Surgery, Podiatry Service [address] [place] [address] Eber Calle DPM [address] [place] [address] [email or web address] 08/01/2024 2:20 PM EDT Office Visit [facility] [address] [address] Jaret Clemons MD [address] [place] [address] Barrera@[email or web address] 08/09/2024 2:30 PM EDT Appointment [facility] [place] [facility] [address] [place] [address] Mckayla Gregg MD [address] [place] [address] [email or web address] 11/24/2024 8:[address] [place] 80 [place] [address] Monet Carranza MD, PhD [address] [place] [address] SHANNAN@[facility] 11/29/2024 9:40 AM EDT Office Visit [facility] NEPHROLOGY (RENAL) [address] [facility] [address]C [place] [address] Praveen Ball MD [address] [place] [address] [place] [address] CHANTALE@[facility] documented as of this encounter Visit Diagnoses Not on filedocumented in this encounter Additional Health Concerns Infection Onset Date Last Indicated Resolved Time CoV-Risk Comment:Per Ambulatory Triage Form 11/14/2022 11/14/202211/25 1:23 AM EDT CoV-Risk Comment:Per Ambulatory Triage Form 02/11/2024 02/11/202402/21 1:23 AM EST Assessment Noted Time PHQ-9 Depression Total Score: 7 07/16/19 16 9:26 AM EDT PHQ-2 Depression Total Score: 2 02/06/20 22 1:51 PM EDT documented as of this encounter Care Teams Farmworker [employer] Relationship Specialty Start Date End Date Ade Ramos MD, MPH 151 [facility] C5 [place] [address] [email or web address] PCP - General Internal Medicine 05/29/20 03/12/23 Rosa Damico MD, MPH [address] [place] [address] [place] [address] [email or web address] PCP - Resident PCP Internal Medicine 01/23/23 03/12/23 Alex Parks MD [address] [place] [address] [place] [address] MADELIN@[email or web address] PCP - General Internal Medicine 03/13/23 Mckayla Gregg MD [address] [place] [address] [place] [address] [email or web address] PCP - Resident PCP Internal Medicine 06/03/23 Ade Ramos MD, MPH [address] [place] [address] [place] [address] Kavya@[facility] Partners Attributed Provider 06/17/14 01/17/23 Alex Parks MD [address] [place] [address] [place] [address] MADELIN@[email or web address]. du Partners Attributed Provider 04/18/23 06/20/23 Mckayla Gregg MD [address] [place] [address] [place] [address] [email or web address] Partners Attributed Provider 06/20/23 08/20/23 Alex Parks MD [address] [place] [address] MADELIN@[facility] [facility]. du Insurance Assigned Provider 07/18/23 Mckayla Gregg MD [address] [place] [address] [email or web address] Partners Attributed Provider 06/20/23 08/20/23 documented as of this encounter Additional Source Comments The information contained in this document represents components of the legal health record. It is not the complete legal health record.[facility]
--- OUTSIDE RECORDS SUMMARY | 2024-05-20 02:41 | XMS_ITS | Encounter Summary ---
Author Organization [facility] Address [phone] [facility] [place] [address] Care Team Providers Care Transplant Worker Name Role Phone Ade Ramos MD, MPH Unavailable +[phone] Ade Ramos MD, MPH Primary Care Provider [phone] Rosa Damico MD, MPH Unavailable + [phone] Alex Parks MD Primary Care Provider [phone] Alex Parks MD Unavailable + [phone] Mckayla Gregg MD Unavailable + [phone] Mckayla Gregg MD Unavailable + 00 Alex Parks MD Unavailable + 9 Mckayla Gregg MD Unavailable + [phone] Encounter Details Date Type Department Care Team (Late st Contact Info) Description 05/29/2021 Procedure Pass [address] [id number] Social History Tobacco Use Types Packs/Day Years [...] Imaging - [place] [address] [place] [address] 01/22/2024 Procedure Pass [facility] 300 [place] [address] 06/17/2024 10:40 AM EST Office Visit [address] [address] Reza Early MD [address] [place] [address] [email or web address] 06/17/2024 1:15 PM EST Appointment [facility] 300 [place] [address] Ade Ramos MD, MPH [address] [place] [address] [email or web address] 07/01/2024 11:15 AM EDT Office Visit [facility] Department of Orthopaedic Surgery, Podiatry Service [address] [place] [address] Eber Calle DPM [address] [place] [address] [email or web address] 08/01/2024 2:20 PM EDT Office Visit [facility] [address] [address] Jaret Clemons MD [address] [place] [address] Barrera@[email or web address] 08/09/2024 2:30 PM EDT Appointment [facility] [address] [place] [address] Mckayla Gregg MD [address] [place] [address] [email or web address] 11/24/2024 8:[address], [facility] - [place] [address] [place] [address] Monet Carranza MD, PhD [address] [place] [address] SHANNAN@[facility] 11/29/2024 9:40 AM EDT Office Visit [facility] NEPHROLOGY (RENAL) [address] [facility] [address] [address] Praveen Ball MD [address] [place] [address] [place] [address] CHANTALE@[email or web address] documented as of this [...] documented as of this encounter Care Teams Transplant Worker Relationship Specialty Start Date End Date Ade Ramos MD, MPH 151 [facility] C5 [address] [address] [email or web address] PCP - General Internal Medicine 05/29/20 03/12/23 Rosa Damico MD, MPH [address] [place] [address] [address] [place] [address] [email or web address] PCP - Resident PCP Internal Medicine 01/23/23 03/12/23 Alex Parks MD [address] [place] [address] [address] [place] [address] [email or web address] gorge PCP - General Internal Medicine 03/13/23 Mckayla Gregg MD [address] [place] [address] [address] [place] [address] [email or web address] PCP - Resident PCP Internal Medicine 06/03/23 Ade Ramos MD, MPH [address] [place] [address] [address] [address] [email or web address] Partners Attributed Provider 06/17/14 01/17/23 Alex Parks MD [address] [place] [address] [address] [place] [address] [email or web address] du Partners Attributed Provider 04/18/23 06/20/23 Mckayla Gregg MD [address] [place] [address] [address] [place] [address] [email or web address] Partners Attributed Provider 06/20/23 08/20/23 Alex Parks MD [address] [place] [address] [email or web address]. du Insurance Assigned Provider 07/18/23 Mckayla Gregg MD [address] [place] [address] [email or web address] Partners Attributed Provider 06/20/23 08/20/23 documented as of this encounter Additional Source Comments The information contained in this document represents components of the legal health record. It is not the complete legal health record.[facility]
--- OUTSIDE RECORDS SUMMARY | 2024-05-20 02:41 | XMS_ITS | Encounter Summary ---
Author Organization [facility] Address [phone] [facility] later [facility] [place] [address] Care Team Providers Care Arborist Representative Name Role Phone Alex Parks MD Primary Care Provider + [phone] Mckayla Gregg MD Unavailable [phone] Alex Parks MD Unavailable [phone] Encounter Details Date Type Department Care Team (Late st Contact Info) Description 04/29/2024 Orders Only [facility] Adult Medicine 151 [place] [address] Alex Parks MD [address] [id number] [email or web address] Social History Tobacco Use Types Packs/Day Years [...] Procedure Pass CT, [facility] Imaging - [address] [address] 01/22/2024 Procedure Pass [facility] Breast [address] [place] [address] 06/17/2024 10:40 AM EST Office Visit [address] [address] Reza Early MD [address] [place] [address] [email or web address] 06/17/2024 1:15 PM EST Appointment [address] [place] [address] Ade Ramos MD, MPH [address] [place] [address] [email or web address] 07/01/2024 11:15 AM EDT Office Visit [facility] Department of Orthopaedic Surgery, Podiatry Service 55 [facility] Yawkey Esau [address] [place] [address] Eber Calle DPM 98 [facility] [address] [email or web address] 08/01/2024 2:20 PM EDT Office Visit [facility] [address] [address] Jaret Clemons MD 243 [facility] [place] [address] Barrera@[email or web address] 08/09/2024 2:30 PM EDT Appointment [facility] 151 [place] [address] Mckayla Gregg MD 151 [place] [address] [email or web address] 11/24/2024 8:[address], [facility] Imaging - [place] [address] [place] [address] Monet Carranza MD, PhD [address] [place] [address] SHANNAN@[facility] 11/29/2024 9:40 AM EDT Office Visit [facility] NEPH[facility]OLOG[facility] (RENAL) 100 [facility] [address] [place] [address] Praveen Ball MD 55 [facility] [address]Z-[address] [place] [address] [email or web address] documented as of this encounter Visit Diagnoses Not on filedocumented in this encounter Additional Health Concerns Assessment Noted Time PHQ-9 Depression Total Score: 25 01/17/2 025 11:01 AM EST PHQ-2 Depression Total Score: 6 04/29/19 25 11:01 AM EST documented as of this encounter Care Teams Arborist Representative Relationship Specialty Start Date End Date Alex Parks MD [address] [place] [address] [place] [address] [email or web address] [place] PCP - General Internal Medicine 03/13/23 Mckayla Gregg MD [address] [place] [address] [email or web address] PCP - Resident PCP Internal Medicine 06/03/23 Alex Parks MD [address] [place] [address] MADELIN@[email or web address]. gorge Insurance Assigned Provider 07/18/23 documented as of this encounter Additional Source Comments The information contained in this document represents components of the legal health record. It is not the complete legal health record.[facility]
--- OUTSIDE RECORDS SUMMARY | 2024-05-20 02:41 | XMS_ITS | Encounter Summary ---
Author Organization [facility] Address [phone] [facility] [place] [address] Care Team Providers Care Office Clerk Name Role Phone Alex Parks MD Primary Care Provider +- [phone] Mckayla Gregg MD Unavailable [phone] Alex Parks MD Unavailable [phone] Reason for Visit * Reason Onset Date Comments Medication Refill 04/29/2024 Encounter Details Date Type Department Care Team (Late st Contact Info) Description 04/29/2024 Refill [facility] Adult Medicine [address] [place] [address] Kaylynn Alvares LPN 151 [place] [phone] [email or web address] Medication Refill Social History Tobacco Use [...] Procedure Pass CT, [facility] Imaging - [address] [address] 01/22/2024 Procedure Pass [address] [address] 06/17/2024 10:40 AM EST Office Visit [address] [address] Reza Early MD [address] [place] [address] [email or web address] 06/17/2024 1:15 PM EST Appointment [facility] Breast [address] [address] Ade Ramos MD, MPH [address] [address] [email or web address] 07/01/2024 11:15 AM EDT Office Visit [facility] Department of Orthopaedic Surgery, Podiatry Service 55 [facility] 3F [place] [address] Eber Calle, DPDianne [address] [place] [address] [email or web address] 08/01/2024 2:20 PM EDT Office Visit [facility] [address] [address] Jaret Clemons MD 243 [facility] [place] [address] Barrera@[email or web address] 08/09/2024 2:30 PM EDT Appointment [facility] Adult Medicine 151 [place] [address] Mckayla Gregg MD 151 [place] [address] [email or web address] 11/24/2024 8:[address], [facility] Imaging - [place] 80 [place] [address] Monet Carranza MD, PhD [address] [place] [address] SHANNAN@[facility] 11/29/2024 9:40 AM EDT Office Visit [facility] NEPHROLOGY (RENAL) 100 [facility] 16[address] [place] [address] Praveen Ball MD 55 [facility] CPZ-[address] [place] [address] CHANTALE@[facility] documented as of this encounter Visit Diagnoses Diagnosis Diffuse pain Type 1 diabetes mellitus with diabetic polyneuropathy Chronic nonintractable headache, unspecified headache type documented in this encounter Additional Health Concerns Assessment Noted Time PHQ-9 Depression Total Score: 25 025 11:01 AM EST PHQ-2 Depression Total Score: 6 04/29/19 25 11:01 AM EST documented as of this encounter Care Teams Office Clerk Relationship Specialty Start Date End Date Alex Parks MD [address] [place] [place] [address] [email or web address] [place] PCP - General Internal Medicine 03/13/23 Mckayla Gregg MD [address] [place] [address] [email or web address] PCP - Resident PCP Internal Medicine 06/03/23 Alex Parks MD [address] [place] [place] [address] MADELIN@[email or web address]. gorge Insurance Assigned Provider 07/18/23 documented as of this encounter Additional Source Comments The information contained in this document represents components of the legal health record. It is not the complete legal health record.[facility]
--- OUTSIDE RECORDS SUMMARY | 2024-05-20 02:41 | XMS_ITS | Encounter Summary ---
Author Organization [facility] Address [phone] [facility] [place] [address] Care Team Providers Care Supervisor Reclamation Name Role Phone Alex Parks MD Primary Care Provider [phone] Mckayla Gregg MD Unavailable [phone] Alex Parks MD Unavailable [phone] Reason for Visit * Reason Onset Date Comments Medication Problem 04/29/2024 Encounter Details Date Type Department Care Team (Late st Contact Info) Description 04/29/2024 Telephone [facility] Adult Medicine [address] [place] [address] Alex Parks MD [address] [address] [email or web address] du Medication Problem Social History Tobacco Use Types Packs/Day Years [...] as of this encounter Progress Notes * Marika Ramey - 04/29/2024 3:31 PM EST Per [id number] ([phone]) Dr. Mckayla Gregg cannot authorize script for pregabalin (LYRICA) 75 MG capsule. Pharmacist unsure why, the system won't allow it, it has do be sent by a different provider. Insurance will not cover albuterol 90 mcg/actuation inhaler, PA can be submitted. documented in this encounter Plan of Treatment Upcoming Encounters Date Type Department Care Team (Late st Contact Info) Description 11/25/[address], [facility] - [place] [address] [place] [address] 01/22/2024 Procedure Pass [facility] Imaging [facility] [address] [place] [address] 06/17/2024 10:40 AM EST Office Visit [facility] [address] [address] Reza Early MD [address] [place] [address] [email or web address]@[facility] 06/17/2024 1:15 PM EST Appointment [facility] Breast Imaging [facility] [address] [place] [address] Ade Ramos MD, MPH [address] [address] Kavya@[email or web address] 07/01/2024 11:15 AM EDT Office Visit [facility] Department of Orthopaedic Surgery, Podiatry Service [address] [place] [address] Eber Calle DPM [address] [place] [address] [email or web address] 08/01/2024 2:20 PM EDT Office Visit [facility] [address] [address] Jaret Clemons MD [address] [place] [address] [place] [address] Barrera@[email or web address] 08/09/2024 2:30 PM EDT Appointment [facility] [place] Adult Medicine 151 [place] [address] Mckayla Gregg MD 151 [place] [address] [email or web address] 11/24/2024 8:[address], [facility] Imaging - [place] 80 [place] [address] Monet Carranza MD, PhD 55 [place] [address] SHANNAN@[facility] 11/29/2024 9:40 AM EDT Office Visit [facility] [place] NEPHROLOGY (RENAL) [address] [place] [address] Praveen Ball MD 55 [facility] CPZ-[address] [place] [address] CHANTALE@[email or web address] documented as of this encounter Visit Diagnoses Not on filedocumented in this encounter Additional Health Concerns Assessment Noted Time PHQ-9 Depression Total Score: 25 025 11:01 AM EST PHQ-2 Depression Total Score: 6 04/29/19 25 11:01 AM EST documented as of this encounter Care Teams Supervisor Reclamation Relationship Specialty Start Date End Date Alex Parks MD [address] [place] [address] [email or web address] [place] PCP - General Internal Medicine 03/13/23 Mckayla Gregg MD [address] [place] [address] [email or web address] PCP - Resident PCP Internal Medicine 06/03/23 Alex Parks MD [address] [place] [address] [email or web address] [place] Insurance Assigned Provider 07/18/23 documented as of this encounter Additional Source Comments The information contained in this document represents components of the legal health record. It is not the complete legal health record.[facility]
--- OUTSIDE RECORDS SUMMARY | 2024-05-20 02:41 | XMS_ITS | Encounter Summary ---
Author Organization [facility] Address [phone] [facility] [place] [address] Care Team Providers Care Registrar Museum Name Role Phone Alex Parks MD Primary Care Provider +- [phone] Mckayla Gregg MD Unavailable [phone] lAex Parks MD Unavailable [phone] Encounter Details Date Type Department Care Team (Late st Contact Info) Description 03/04/2024 Procedure Pass MRI, [facility] Imaging - [place] 80 [place] [address] Social History Tobacco Use Types Packs/Day Years [...] Procedure Pass CT, [facility] Imaging - [place] 80 [place] [address] 01/22/2024 Procedure Pass [facility] Breast [facility] 300 [place] [address] 06/17/2024 10:40 AM EST Office Visit [facility] [address] [address] Reza Early MD 243 [place] [address] Reza_[email or web address] 06/17/2024 1:15 PM EST Appointment [facility] Breast Imaging [facility] 300 [place] [address] Ade Ramos MD, MPH [address] [address] Kavya@[email or web address] 07/01/2024 11:15 AM EDT Office Visit [facility] Department of Orthopaedic Surgery, Podiatry Service [address] [address] Eber Calle DPM [address] [place] [address] [email or web address] 08/01/2024 2:20 PM EDT Office Visit [facility] [address] [address] Jaret Clemons MD 243 [facility] [place] [address] [email or web address] 08/09/2024 2:30 PM EDT Appointment [facility] Adult Medicine 151 [place] [address] Mckayla Gregg MD 151 [place] [address] [email or web address] 11/24/2024 8:[address], [facility] - [place] 80 [place] [address] Monet Carranza MD, PhD [address] [place] [address] SHANNAN@[facility] 11/29/2024 9:40 AM EDT Office Visit [facility] NEPHROLOGY (RENAL) 100 [facility] 16[address] [place] [address] Praveen Ball MD 55 [facility] [place] [address] CHANTALE@[facility] documented as of this encounter Visit Diagnoses Not on filedocumented in this encounter Additional Health Concerns Assessment Noted Time PHQ-9 Depression Total Score: 25 024 11:07 AM EDT PHQ-2 Depression Total Score: 6 01/22/20 24 11:07 AM EDT documented as of this encounter Care Teams Registrar Museum Relationship Specialty Start Date End Date Alex Parks MD [address] [place] [address] [email or web address] [place] PCP - General Internal Medicine 03/13/23 Mckayla Gregg MD [address] [place] [address] [email or web address] PCP - Resident PCP Internal Medicine 06/03/23 Alex Parks MD [address] [place] [address] MADELIN@[facility]. gorge Insurance Assigned Provider 07/18/23 documented as of this encounter Additional Source Comments The information contained in this document represents components of the legal health record. It is not the complete legal health record.[facility]
--- OUTSIDE RECORDS SUMMARY | 2024-05-20 02:41 | XMS_ITS | Encounter Summary ---
Author Organization [facility] Address [phone] Critical [place] [address] Care Team Providers Care Administrative Secretary Name Role Phone Alex Parks MD Primary Care Provider + [phone] Alex Parks MD Unavailable [phone] Mckayla Gregg MD Unavailable [phone] Mckayla Gregg MD Unavailable [phone] Alex Parks MD Unavailable [phone] Mckayla Gregg MD Unavailable [phone] Encounter Details Date Type Department Care Team (Late st Contact Info) Description 06/17/2023 Procedure Pass [facility] 55 [place] [phone] Social History Tobacco Use Types Packs/Day Years [...] CT, [facility] - [place] 80 [place] [address] 01/22/2024 Procedure Pass [facility] Breast [facility] [address] [place] [address] 06/17/2024 10:40 AM EST Office Visit [address] [address] Reza Early MD [address] [place] [address] Reza_[email or web address] 06/17/2024 1:15 PM EST Appointment [facility] [address] [place] [address] Ade Ramos MD, MPH [address] [address] [email or web address]. [facility] 07/01/2024 11:15 AM EDT Office Visit [facility] Department of Orthopaedic Surgery, Podiatry Service [address] [address] Eber Calle DPM 98 [place] [address] [email or web address] 08/01/2024 2:20 PM EDT Office Visit [facility] [address] [address] Jaret Clemons MD [address] MEEI [place] [address] Barrera@[facility] 08/09/2024 2:30 PM EDT Appointment [facility] [place] Adult Medicine [address] [place] [address] Mckayla Gregg MD 151 [place] [address] [email or web address] 11/24/2024 8:[address], [facility] - [place] [address] [place] [address] Monet Carranza MD, PhD 55 [place] [address] SHANNAN@[facility] 11/29/2024 9:40 AM EDT Office Visit [facility] [place] NEPHROLOGY (RENAL) 100 Ph[address] Avsupriya [facility] [address] [place] [address] Praveen Ball MD 55 [facility] [address] [place] [address] CHANTALE@[email or web address] documented as of this encounter Visit [...] documented as of this encounter Care Teams Administrative Secretary Relationship Specialty Start Date End Date Alex Parks MD 151 [facility] C51 [address] [place] [address] MADELIN@[email or web address]. [place] PCP - General Internal Medicine 03/13/23 Mckayla Gregg MD [address] [place] [address] [place] [address] [email or web address] PCP - Resident PCP Internal Medicine 06/03/23 Alex Parks MD [address] [place] [address] MADELIN@[facility]. du Partners Attributed Provider 04/18/23 06/20/23 Mckayla Gregg MD [address] [place] [address] [email or web address] Partners Attributed Provider 06/20/23 08/20/23 Alex Parks MD [address] [place] [address] MADELIN@[email or web address]. du Insurance Assigned Provider 07/18/23 Mckayla Gregg MD [address] [place] [address] [email or web address] Partners Attributed Provider 06/20/23 08/20/23 documented as of this encounter Additional Source Comments The information contained in this document represents components of the legal health record. It is not the complete legal health record.[facility]
--- OUTSIDE RECORDS SUMMARY | 2024-05-20 02:41 | XMS_ITS | Encounter Summary ---
Author Organization [facility] Address [phone] [facility] [place] [place] [address] Care Team Providers Care Analytical Scientist Name Role Phone Ade Ramos MD, MPH Unavailable + [phone] Ade Ramos MD, MPH Primary Care Provider [phone] Rosa Damico MD, MPH Unavailable + [phone] Alex Parks MD Primary Care Provider +80 Alex Parks MD Unavailable + [phone] Mckayla Gregg MD Unavailable [phone] Mckayla Gregg MD Unavailable + 00 Alex Parks MD Unavailable + 9 Mckayla Gregg MD Unavailable + 00 Encounter Details Date Type Department Care Team (Late st Contact Info) Description 08/27/2020 Procedure Pass [facility] [place] [facility] Outpatient Care, Radio Flouroscopy [address] [place] [address] Social History Tobacco Use Types Packs/Day Years [...] CT, [facility] Imaging - [place] [address] [place] [address] 01/22/2024 Procedure Pass [facility] Breast [facility] [address] [place] [address] 06/17/2024 10:40 AM EST Office Visit [address] [address] Reza Early MD [address] [place] [address] [email or web address] 06/17/2024 1:15 PM EST Appointment [facility] [address] [place] [address] Ade Ramos MD, MPH [address] [address] Kavya@[facility]. [facility] 07/01/2024 11:15 AM EDT Office Visit [facility] Department of Orthopaedic Surgery, Podiatry Service [address] [address] Eber Calle DPM [address] [place] [address] [email or web address] 08/01/2024 2:20 PM EDT Office Visit [facility] [address] [address] Jaret Clemons MD [address] [place] [address] [place] [address] [email or web address] 08/09/2024 2:30 PM EDT Appointment [facility] [place] Adult [facility] [address] [place] [address] Mckayla Gregg MD [address] [place] [address] [email or web address] 11/24/2024 8:[address], Mass General Imaging - [place] [address] [place] [address] Monet Carranza MD, PhD 55 [place] [address] SHANNAN@[facility] 11/29/2024 9:40 AM EDT Office Visit [facility] NEPHROLOGY (RENAL) [address] [facility] [address] [address] Praveen Ball MD 55 [facility] [place] [address] CHANTALE@[email or web address] documented as of this encounter [...] documented as of this encounter Care Teams Analytical Scientist Relationship Specialty Start Date End Date Ade Ramos MD, MPH [address] [place] [address] [place] [address] [email or web address] PCP - General Internal Medicine 05/29/20 03/12/23 Rosa Damico MD, MPH [address] [place] [address] [place] [address] [email or web address] PCP - Resident PCP Internal Medicine 01/23/23 03/12/23 Alex Parks MD [address] [place], [place] [address] [address] MADELIN@[email or web address] [place] PCP - General Internal Medicine 03/13/23 Mckayla Gregg MD [address] [place] [address] [place] [address] [email or web address] PCP - Resident PCP Internal Medicine 06/03/23 Ade Ramos MD, MPH [address] [place] [address] Kavya@[email or web address] Partners Attributed Provider 06/17/14 01/17/23 Alex Parks MD [address] [place], [place] [address], [place] [address] MADELIN@[facility]. du Partners Attributed Provider 04/18/23 06/20/23 Mckayla Gregg MD [address] [place] [address] [email or web address] Partners Attributed Provider 06/20/23 08/20/23 Alex Parks MD [address] [place] [address] MADELIN@[email or web address].[email or web address]. du Insurance Assigned Provider 07/18/23 Mckayla Gregg MD [address] [place] [address] [email or web address] Partners Attributed Provider 06/20/23 08/20/23 documented as of this encounter Additional Source Comments The information contained in this document represents components of the legal health record. It is not the complete legal health record.[facility]
--- OUTSIDE RECORDS SUMMARY | 2024-05-20 02:41 | XMS_ITS | Encounter Summary ---
Author Organization [facility] Address [phone] [facility] [address] Care Team Providers Care Board Liner Operator Name Role Phone Ade Ramos MD, MPH Primary Care Provider [phone] dAe Ramos MD, MPH Unavailable + Ade Ramos [...] Care Team (Late st Contact Info) Description 06/13/2019 Procedure Pass [facility] TH[facility] [address] [place] [address] Social History Tobacco Use Types Packs/Day Years [...] CT, Mass General Imaging - [place] [address] [place] [address] 01/22/2024 Procedure Pass [address] [address] 06/17/2024 10:40 AM EST Office Visit [address] [address] Reza Early MD [address] [place] [address] [email or web address] .[facility] 06/17/2024 1:15 PM EST Appointment [address] [address] Ade Ramos MD, MPH [address] [place] [address] Kavya@[facility]. [facility] 07/01/2024 11:15 AM EDT Office Visit [facility] Department of Orthopaedic Surgery, Podiatry Service [address] [address] Eber Calle DPM [address] [place] [address] [email or web address] 08/01/2024 2:20 PM EDT Office Visit [address] [address] Jaret Clemons MD 243 [facility] [place] [address] Barrera@[facility] 08/09/2024 2:30 PM EDT Appointment [facility] Adult Medicine [address] [place] [address] Mckayla Grgeg MD 151 [place] [address] [email or web address] 11/24/2024 8:[address], Mass General Imaging - [place] [address] [place] [address] Monet Carranza MD, PhD 55 [place] [address] SHANNAN@[email or web address] 11/29/2024 9:40 AM EDT Office Visit [facility] NEPHROLOGY (RENAL) [address] [facility] [address] [place] [address] Praveen Ball MD 55 [facility] CPZ-[address] [place] [address] CHANTALE@[email or web address] documented as of this encounter Visit [...] documented as of this encounter Care Teams Board Liner Operator Relationship Specialty Start Date End Date Ade Ramos MD, MPH [address] [place] [address] [email or web address] PCP - General 10/11/13 04/28/20 Pcp, Unknown PCP - General 04/29/20 05/28/20 Ade Ramos MD, MPH [address] [place] [address] [email or web address] PCP - General Internal Medicine 05/29/20 03/12/23 Rosa Damico MD, MPH [address] [place] [address] [email or web address] PCP - Resident PCP Internal Medicine 01/23/23 03/12/23 Alex Parks MD [address] [place] [address] MADELIN@[email or web address]. gorge PCP - General Internal Medicine 03/13/23 Mckayla Gregg MD [address] [place] [address] [email or web address] PCP - Resident PCP Internal Medicine 06/03/23 Ade Ramos MD, MPH [address] [place] [address] Kavya@[email or web address] Partners Attributed Provider 06/17/14 01/17/23 Ade Ramos MD, MPH [address] [place] [address] [email or web address] Insurance Assigned Provider 07/20/19 04/21/20 Alex Parks MD [address] [place], [place] [address] [address] MADELIN@[email or web address]. du Partners Attributed Provider 04/18/23 06/20/23 Mckayla Gregg MD [address] [place], [place] [address] [address] [email or web address] Partners Attributed Provider 06/20/23 08/20/23 Alex Parks MD [address] [place] [address] MADELIN@[email or web address]. du Insurance Assigned Provider 07/18/23 Mckayla Gregg MD [address] [place] [address] [place] [address] [email or web address] Partners Attributed Provider 06/20/23 08/20/23 documented as of this encounter Additional Source Comments The information contained in this document represents components of the legal health record. It is not the complete legal health record.[facility]
--- OUTSIDE RECORDS SUMMARY | 2024-05-20 02:41 | XMS_ITS | Encounter Summary ---
Author Organization [facility] Address [phone] [facility] [place] [address] Care Team Providers Care District Medical Examiner Name Role Phone Alex Parks MD Primary Care Provider [phone] Mckayla Gregg MD Unavailable [phone] Alex Parks MD Unavailable [phone] Encounter Details Date Type Department Care Team (Late st Contact Info) Description 04/10/2024 Orders Only [facility] 98 [place] [address] Eber Calle DPM 98 [place] [address] [email or web address] Diabetic polyneuropathy associated with type 2 diabetes mellitus Social History Tobacco Use Types Packs/Day Years [...] Procedure Pass CT, Mass General Imaging - [address] [address] 01/22/2024 Procedure Pass [facility] Breast [address] [place] [address] 06/17/2024 10:40 AM EST Office Visit [address] [address] Reza Early MD [address] [place] [address] Reza_[email or web address] 06/17/2024 1:15 PM EST Appointment [address] [place] [address] Ade Ramos MD, MPH [address] [place] [address] Kavya@[facility] 07/01/2024 11:15 AM EDT Office Visit [facility] Department of Orthopaedic Surgery, Podiatry Service [address] [place] [address] Eber Calle DPM [address] [place] [address] [email or web address] 08/01/2024 2:20 PM EDT Office Visit [facility] [address] [address] Jaret Clemons MD 243 [place] [address] Barrera@[facility] 08/09/2024 2:30 PM EDT Appointment [facility] Adult Medicine 151 [place] [address] Mckayla Gregg MD 151 [place] [address] [email or web address] 11/24/2024 8:[address], Mass General Imaging - [place] [address] [place] [address] Monet Carranza MD, PhD 55 [place] [address] SHANNAN@[email or web address] 11/29/2024 9:40 AM EDT Office Visit [facility] NEPHROLOGY (RENAL) 100 [facility] 16[address] [place] [address] Praveen Ball MD 55 [facility] CPZ-[address] [place] [address] CHANTALE@[email or web address] documented as of this encounter Visit Diagnoses Diagnosis Diabetic polyneuropathy associated with type 2 diabetes mellitus documented in this encounter Additional Health Concerns Assessment Noted Time PHQ-9 Depression Total Score: 25 024 11:07 AM EDT PHQ-2 Depression Total Score: 6 01/22/20 24 11:07 AM EDT documented as of this encounter Care Teams District Medical Examiner Relationship Specialty Start Date End Date Alex Parks MD [address] [place] [address] MADELIN@[email or web address]. gorge PCP - General Internal Medicine 03/13/23 Mckayla Gregg MD [address] [place] [address] [email or web address] PCP - Resident PCP Internal Medicine 06/03/23 Alex Parks MD [address] [place] [address] MADELIN@[email or web address] gorge Insurance Assigned Provider 07/18/23 documented as of this encounter Additional Source Comments The information contained in this document represents components of the legal health record. It is not the complete legal health record.[facility]
--- OUTSIDE RECORDS SUMMARY | 2024-05-20 02:41 | XMS_ITS | Encounter Summary ---
Author Organization [facility] Address [phone] [facility] [place] [address] Care Team Providers Care Senior Product Analyst Name Role Phone Ade Ramos MD, MPH [...] Care Team (Late st Contact Info) Description 01/17/2019 Procedure Pass [facility] RUSS, [place] [address] 2[address] [place] [address] Social History Tobacco Use Types Packs/Day Years [...] CT, Mass General Imaging - [place] [address] [place] [address] 01/22/2024 Procedure Pass [address] [address] 06/17/2024 10:40 AM EST Office Visit [address] [address] Reza Early MD [address] [place] [address] Reza_[email or web address] .[facility] 06/17/2024 1:15 PM EST Appointment [address] [address] Ade Ramos MD, MPH [address] [place] [address] Kavya@[facility] 07/01/2024 11:15 AM EDT Office Visit [facility] Department of Orthopaedic Surgery, Podiatry Service [address] [address] Eber Calle DPM [address] [place] [address] [email or web address] 08/01/2024 2:20 PM EDT Office Visit [address] [address] Jaret Clemons MD 243 [facility] [place] [address] Barrera@[facility] 08/09/2024 2:30 PM EDT Appointment [facility] Adult Medicine [address] [place] [address] Mckayla Gregg MD 151 [place] [address] [email or web address] 11/24/2024 8:[address], Mass General Imaging - [place] [address] [place] [address] Monet Carranza MD, PhD 55 [place] [address] SHANNAN@[facility] 11/29/2024 9:40 AM EDT Office Visit [facility] NEPHROLOGY (RENAL) [address] [facility] [address] [place] [address] Praveen Ball MD 55 [facility] [address] [place] [address] CHANTALE@[email or web address] documented as of this encounter Visit [...] documented as of this encounter Care Teams Senior Product Analyst Relationship Specialty Start Date End Date Ade Ramos MD, MPH [address] [place] [address] [email or web address]@[facility] PCP - General 10/11/13 04/28/20 Pcp, Unknown PCP - General 04/29/20 05/28/20 Ade Ramos MD, MPH [address] [place] [address] Kavya@[facility] PCP - General Internal Medicine 05/29/20 03/12/23 Rosa Damico MD, MPH [address] [place] [address] [email or web address] PCP - Resident PCP Internal Medicine 01/23/23 03/12/23 Alex Parks MD [address] [place] [address] MADELIN@[email or web address]. gorge PCP - General Internal Medicine 03/13/23 Mckayla Gregg MD [address] [place] [address] [email or web address] PCP - Resident PCP Internal Medicine 06/03/23 Ade Ramos MD, MPH [address] [place] [address] Kavya@[facility] Partners Attributed Provider 06/17/14 01/17/23 Ade Ramos MD, MPH [address] [place] [address] Kavya@[facility] Insurance Assigned Provider 07/20/19 04/21/20 Alex Parks MD [address] [place], [place] [address], [place] [address] MADELIN@[facility]. du Partners Attributed Provider 04/18/23 06/20/23 Mckayla Gregg MD [address] [place], [place] [address] [address] [email or web address] Partners Attributed Provider 06/20/23 08/20/23 Alex Parks MD [address] [place] [address] MADELIN@[facility]. du Insurance Assigned Provider 07/18/23 Mckayla Gregg MD [address] [place] [address] [place] [address] [email or web address] Partners Attributed Provider 06/20/23 08/20/23 documented as of this encounter Additional Source Comments The information contained in this document represents components of the legal health record. It is not the complete legal health record.[facility]
--- OUTSIDE RECORDS SUMMARY | 2024-05-20 02:41 | XMS_ITS | Encounter Summary ---
Author Organization [facility] Address [phone] [facility] [place] [address] Care Team Providers Care Cab Driver Name Role Phone Ade Ramos MD, MPH Unavailable + [phone] Ade Ramos MD, MPH Primary Care Provider [phone] Rosa Damico MD, MPH Unavailable + [phone] Alex Parks MD Primary Care Provider +80 Alex Parks MD Unavailable + [phone] Mckayla Gregg MD Unavailable + 00 Mckayla Gregg MD Unavailable + 00 Alex Parks MD Unavailable + 980 Mckayla Gregg MD Unavailable + 00 Encounter Details Date Type Department Care Team (Late st Contact Info) Description 09/21/2020 Transcribe Orders [facility] Outpatient Care, Radio Flouroscopy [address] [place] [address] Sanket Momin 15 [place] [address] Social History Tobacco Use Types Packs/Day Years [...] CT, Mass General Imaging - [place] 80 [place] [address] 01/22/2024 Procedure Pass [facility] 300 [place] [address] 06/17/2024 10:40 AM EST Office Visit [address] [address] Reza Early MD [address] [place] [address] Reza_[email or web address] 06/17/2024 1:15 PM EST Appointment [facility] 300 [place] [address] Ade Ramos MD, MPH [address] [place] [address] Kavya@[facility] 07/01/2024 11:15 AM EDT Office Visit [facility] Department of Orthopaedic Surgery, Podiatry Service [address] [address] Eber Calle DPM 98 [place] [address] [email or web address] 08/01/2024 2:20 PM EDT Office Visit [facility] [address] [address] Jaret Clemons MD [address] [place], [place] [address]EI [place] [address] Barrera@[email or web address] 08/09/2024 2:30 PM EDT Appointment [facility] Adult Medicine [address] [place] [address] Mckayla Gregg MD 151 [facility] [place] [address] [email or web address] 11/24/2024 8:[address], Mass General Imaging - [place] [address] [place] [address] Monet Carranza MD, PhD 55 [place] [address] SHANNAN@[facility] 11/29/2024 9:40 AM EDT Office Visit [facility] NEPHROLOGY (RENAL) [address] [place] [address] Praveen Ball MD 55 [facility] [address] [place] [address] CHANTALE@[facility] documented as of this encounter [...] documented as of this encounter Care Teams Cab Driver Relationship Specialty Start Date End Date Ade Ramos MD, MPH [address] [place] [address] [address] [place] [address] Kavya@[facility] PCP - General Internal Medicine 05/29/20 03/12/23 Rosa Damico MD, MPH [address] [place] [address] [address] [address] [email or web address] PCP - Resident PCP Internal Medicine 01/23/23 03/12/23 Alex Parks MD [address] [place], [place] [address] [address] MADELIN@[email or web address] PCP - General Internal Medicine 03/13/23 Mckayla Gregg MD [address] [place] [address] [address] [place] [address] [email or web address] PCP - Resident PCP Internal Medicine 06/03/23 Ade Ramos MD, MPH [address] [place] [address] [address] [address] Kavya@[email or web address] Partners Attributed Provider 06/17/14 01/17/23 Alex Parks MD [address] [place] [address] [address] [place] [address] MADELIN@[facility]. du Partners Attributed Provider 04/18/23 06/20/23 Mckayla Gregg MD [address] [place] [address] [email or web address] Partners Attributed Provider 06/20/23 08/20/23 Alex Parks MD [address] [place] [address] MADELIN@[facility]. du Insurance Assigned Provider 07/18/23 Mckayla Gregg MD [address] [place] [address] [email or web address] Partners Attributed Provider 06/20/23 08/20/23 documented as of this encounter Additional Source Comments The information contained in this document represents components of the legal health record. It is not the complete legal health record.[facility]
--- OUTSIDE RECORDS SUMMARY | 2024-05-20 02:41 | XMS_ITS | Encounter Summary ---
Author Organization [facility] Address [phone] Formerly [facility] [email or web address] [address] Care Team Providers Care Ferry Hand Name Role Phone Alex Parks MD Primary Care Provider [phone] Mckayla Gregg MD Unavailable [phone] Alex Parks MD Unavailable [phone] Reason for Visit * Reason Onset Date Comments Medication Refill 04/29/2024 Encounter Details Date Type Department Care Team (Late st Contact Info) Description 04/29/2024 Refill [facility] Adult Medicine [address] [place] [address] Allyn Rosales LPN [address] [place] [address] [email or web address] Medication Refill Social History Tobacco Use Types [...] as of this encounter Progress Notes * Allyn Rosales LPN - 04/29/2024 1:40 PM EST PA Submitted to mYwindow for Verapamil documented in this encounter Plan of Treatment Upcoming Encounters Date Type Department Care Team (Late st Contact Info) Description 11/25/[address] [place] [address] [place] [address] 01/22/2024 Procedure Pass [facility] [place] [address] [place] [address] 06/17/2024 10:40 AM EST Office Visit [address] [address] Reza Early MD [address] [place] [address] [email or web address] 06/17/2024 1:15 PM EST Appointment [facility] [place] [address] [place] [address] Ade Ramos MD, MPH [address] [address] [email or web address] 07/01/2024 11:15 AM EDT Office Visit [facility] Department of Orthopaedic Surgery, Podiatry Service 55 [facility] 3[address] [place] [address] Eber Calle, DPDianne [address] [place] [address] [email or web address] 08/01/2024 2:20 PM EDT Office Visit [facility] [address] [address] Jaret Clemons MD 243 [place] [address] [email or web address] 08/09/2024 2:30 PM EDT Appointment [facility] Adult [facility] 151 [facility] [place] [address] Mckayla Gregg MD 151 [place] [address] [email or web address] 11/24/2024 8:[address] [place] [address] [place] [address] Monet Carranza MD, PhD [address] [place] [address] [email or web address] 11/29/2024 9:40 AM EDT Office Visit [facility] ([facility]) 100 [facility] [address] [place] [address] Praveen Ball MD 55 [facility] [address] [place] [address] [email or web address] documented as of this encounter Visit Diagnoses Not on filedocumented in this encounter Additional Health Concerns Assessment Noted Time PHQ-9 Depression Total Score: 25 025 11:01 AM EST PHQ-2 Depression Total Score: 6 04/29/19 25 11:01 AM EST documented as of this encounter Care Teams Ferry Hand Relationship Specialty Start Date End Date Alex Parks MD [address] [place] [address] [email or web address] PCP - General Internal Medicine 03/13/23 Mckayla Gregg MD [address] [place] [address] [email or web address] PCP - Resident PCP Internal Medicine 06/03/23 Alex Parks MD [address] [place] [address] [email or web address] Insurance Assigned Provider 07/18/23 documented as of this encounter Additional Source Comments The information contained in this document represents components of the legal health record. It is not the complete legal health record.[facility]
--- OUTSIDE RECORDS SUMMARY | 2024-05-20 02:41 | XMS_ITS | Encounter Summary ---
Author Organization [facility] Address [phone] [facility] [place] [address] Care Team Providers Care Breaker Machine Tender Name Role Phone Alex Parks MD Primary Care Provider [phone] Mckayla Gregg MD Unavailable [phone] Alex Parks MD Unavailable [phone] Reason for Visit * Reason Comments Follow Up Visit Encounter Details Date Type Department Care Team (Latest Contact Info) Description 04/29/2024 11:00 AM EST Office Visit [facility] Adult Medicine [address] [place] [address] Mckayla Gregg MD [address] [place] [address] [email or web address] Acute bronchitis, unspecified organism (Primary Dx); Renovascular hypertension; Routine health maintenance; Hypertension; Nasal congestion; Chronic tension-type headache, not intractable; Diffuse pain; Type 1 diabetes mellitus with diabetic polyneuropathy; Chronic nonintractable headache, unspecified headache type; Slow transit constipation; Mild intermittent asthma without complication; Hay fever; Chronic bilateral low back pain with left-sided sciatica; Familial hypercholesterolemia; Rash and other nonspecific skin eruption Social History Tobacco Use Types Packs/Day Years [...] Sign Reading Time Taken Comments Blood Pressure 157/93 04/29/2024 11:14 AM EST Pulse 67 04/29/2024 10:55 AM EST Temperature 36 ??C (96.8 ??F) 04/29/2024 10:55 AM EST Respiratory Rate - - Oxygen Saturation 100% 04/29/2024 10:55 AM EST Inhaled Oxygen Concentration - - Weight 79.1 kg (174 lb 6.4 oz) 04/29/2024 10:55 AM EST Height - - Body Mass Index 32.97 02/24/2024 10:57 AM EST documented in this encounter Progress Notes * Heather Maddox MD, MPH - 04/29/2024 11:00 AM ESTAddended by: HEATHER MADDOX M.D. on: 04/30/2024 10:36 PM Modules accepted: Level of Service * Mckayla Gregg MD - 04/29/2024 11:00 AM EST Date of Visit: 04/29/2024 Chief Complaint Patient presents with Follow Up Visit HPI Ms. Weaver is a 54 y.o. year old female here today for subacute cough and dyspnea. See below for problem-based history, assessment, and plan. Review of Systems Please see encounter for medications, allergies, PMH, surgical history, social history, and family history. Vitals: BP (!) 157/93 (BP Location: Left arm, Patient Position: Sitting, Cuff Size: Medium) Pulse 67 Temp 36 ??C (96.8 ??F) Wt 79.1 kg (174 lb 6.4 oz) SpO2 100% BMI 32.97 kg/m?? Physical Exam Gen: Well-appearing, seated in NAD HEENT: normocephalic, PERRL, no scleral icterus, conjunctival pallor, conjunctival injection. MMM, good dentition. CV: Warm and well-perfused Pulm: Diffuse bilateral rhonchi, no wheezing. Abd: Soft, ND. Neuro: A&Ox3. Normal speech and comprehension. 5/5 strength in upper and lower extremities bilaterally. Sensation grossly intact. Gait normal. MSK: No bony or muscular deformities. No tenderness to palpation. Skin: No skin lesions, rashes, or ecchymoses. Psych: Mood, normal affect. History, Assessment, and Plan by Problem: 1. Acute bronchitis, unspecified organism (Primary) Assessment & Plan: Developed cough and dyspnea one month prior for which she presented to [place] urgent care and wastold she has pneumonia. Was prescribed 5-day course of prednisone with brief symptomatic relief, but has had persistent cough and chest congestion since. Has been taking Robitussin at home with minimal relief. Illness has worsened chronic fatigue. Denies fevers, chills. A&P: Unclear if imaging confirmed pneumonia while at [facility] (not in the system) and gradual improvement without antibiotics lowers concern for active pneumonia. Will order CXR to officially rule out but continue with supportive therapy for more likely viral bronchitis. Advised to continue asthma medication as she had run out of Breo Ellipta - Albuterol inhaler PRN - CXR - Breo Ellipta refill Orders: - XR Chest 2. Renovascular hypertension Assessment & Plan: A&P: Has been having high home BP readings in the 190s - 210s, consistent with initial reading in clinic today. Repeat decreased to 150s. Notably, patient ran out of at least two antihypertensives two days prior to clinic visit, so will not make any major changes and requested patient record a week's worth of BP measurements daily and report values in [place] after resuming meds. - Chlorthalidone, losartan, doxazosin refilled - Verapamil removed from med list Orders: - chlorthalidone (HYGROTON) 25 MG tablet Dispense: 60 tablet; Refill: 2 3. Routine health maintenance Assessment & Plan: A&P: Overall has been doing somewhat poorly in setting of recent illness and worsening fatigue.Concerned about slight weight gain despite Trulicity. Has not recently been to aquatic PT given illness and advised her to avoid until respiratory illness resolves for public health and chlorinated water could be an irritant. Had elevated PHQ-9, though noted that her mood did not feel significantlydifferent from prior, but more fatigued. Happy with her psychiatrist and preferred to continue having her manage her medications. Denied SI/HI. 4. Hypertension - losartan (COZAAR) 100 MG tablet Dispense: 30 tablet; Refill: 2 5. Nasal congestion - fluticasone propionate (FLONASE) 50 mcg/actuation nasal spray Dispense: 9.9 mL; Refill: 2 6. Chronic tension-type headache, not intractable 7. Diffuse pain 8. Type 1 diabetes mellitus with diabetic polyneuropathy - insulin glargine-yfgn (SEMGLEE) 100 unit/mL (3 mL) subcutaneous pen Dispense: 9 mL; Refill: 0 - insulin aspart U-100 (NOVOLOG) 100 unit/mL injection vial Dispense: 5.4 mL; Refill: 2 - empagliflozin (JARDIANCE) 10 mg tablet Dispense: 90 tablet; Refill: 3 - dulaglutide (TRULICITY) 4.5 mg/0.5 mL subcutaneous injection Dispense: 4.5 mL; Refill: 2 9. Chronic nonintractable headache, unspecified headache type 10. Slow transit constipation 11. Mild intermittent asthma without complication 12. Hay fever 13. Chronic bilateral low back pain with left-sided sciatica 14. Familial hypercholesterolemia - alirocumab (PRALUENT) 150 mg/mL subcutaneous pen injector Dispense: 6 mL; Refill: 3 15. Rash and other nonspecific skin eruption Assessment & Plan: A&P: Reported new vesicular rash surrounding some skin tags localized to R shoulder and upper back that has been gradually worsening. Nonpruritic, nontender, nonweeping, and has not ruptured. Notes no new topicals. Does not appear consistent with a contact dermatitis and lack of tenderness reassuring against shingles infection. Will continue to monitor and if worsening, can consider derm consult. Other orders - [facility] Primary Care Established Visit - nicotine (NICODERM CQ) 14 mg/24 hr Dispense: 28 patch; Refill: 1 - ketotifen (ZADITOR) 0.025 % (0.035 %) ophthalmic solution Dispense: 5 mL; Refill: 0 - ketoconazole 2 % cream Dispense: 60 g; Refill: 0 - white petrolatum-mineral oiL (EUCERIN) Crea Dispense: 454 g; Refill: 3 - albuterol 90 mcg/actuation inhaler Dispense: 18 g; Refill: 3 Return in about 3 months (around 07/28/2024) for Next scheduled follow up, please make hour-long. Mckayla Gregg Medicine, PGY-2 * Heather Maddox MD, MPH - 04/29/2024 11:00 AM EST Subject Line: Provider Attestation I saw, interviewed, and examined the patient, and reviewed the notes, assessments, and/or procedures performed by Dr Gregg, I concur with her documentation of Brittany Weaver. It should be noted that she had a PHQ9 of 25 with SI, but when interviewed, she denied problems w/ her mood or any SI. I am n ot sure what to make of this inconsistency. As noted, she is well established with her psychiatrvin Medrano. documented in this encounter Miscellaneous Notes * Assessment & Plan Note - Mckayla Gregg MD - 04/29/2024 11:35 PM EST Associated Problem(s): Rash and other nonspecific skin eruption A&P: Reported new vesicular rash surrounding some skin tags localized to R shoulder and upper back that has been gradually worsening. Nonpruritic, nontender, nonweeping, and has not ruptured. Notes no new topicals. Does not appear consistent with a contact dermatitis and lack of tenderness reassuring against shingles infection. Will continue to monitor and if worsening, can consider derm consult. * Assessment & Plan Note - Mckayla Gregg MD - 04/29/2024 10:52 PM EST Associated Problem(s): Acute bronchitis Developed cough and dyspnea one month prior for which she presented to [place] urgent care and wastold she has pneumonia. Was prescribed 5-day course of prednisone with brief symptomatic relief, but has had persistent cough and chest congestion since. Has been taking Robitussin at home with minimal relief. Illness has worsened chronic fatigue. Denies fevers, chills. A&P: Unclear if imaging confirmed pneumonia while at [place] urgent [facility] (not in the system) and gradual improvement without antibiotics lowers concern for active pneumonia. Will order CXR to officially rule out but continue with supportive therapy for more likely viral bronchitis. Advised to continue asthma medication as she had run out of Breo Ellipta - Albuterol inhaler PRN - CXR - Breo Ellipta refill * Assessment & Plan Note - Mckayla Gregg MD - 04/29/2024 11:58 AM EST Associated Problem(s): Routine health maintenance A&P: Overall has been doing somewhat poorly in setting of recent illness and worsening fatigue.Concerned about slight weight gain despite Trulicity. Has not recently been to aquatic PT given illness and advised her to avoid until respiratory illness resolves for public health and chlorinated water could be an irritant. Had elevated PHQ-9, though noted that her mood did not feel significantlydifferent from prior, but more fatigued. Happy with her psychiatrist and preferred to continue having her manage her medications. Denied SI/HI. * Assessment & Plan Note - Mckayla Gregg MD - 04/29/2024 11:21 AM EST Associated Problem(s): Renovascular hypertension A&P: Has been having high home BP readings in the 190s - 210s, consistent with initial reading in clinic today. Repeat decreased to 150s. Notably, patient ran out of at least two antihypertensives two days prior to clinic visit, so will not make any major changes and requested patient record a week's worth of BP measurements daily and report values in [place] after resuming meds. - Chlorthalidone, losartan, doxazosin refilled - Verapamil removed from med list documented in this encounter Plan of Treatment Upcoming Encounters Date Type Department Care Team (Late st Contact Info) Description 11/25/[address] [place] 80 [place] [address] 01/22/2024 Procedure Pass [address] [address] 06/17/2024 10:40 AM EST Office Visit [address] [address] Reza Early MD [address] [place] [address] [email or web address] .[facility] 06/17/2024 1:15 PM EST Appointment [address] [address] Heather Maddox MD, MPH [address] [place] [address] [email or web address] 07/01/2024 11:15 AM EDT Office Visit [facility] Department of Orthopaedic Surgery, Podiatry Service 55 [facility] 3[address] [place] [address] Eber Calle, MARIAJOSE 98 [place] [address] [email or web address] 08/01/2024 2:20 PM EDT Office Visit [facility] [address] [address] Jaret Clemons MD 243 [place] [address] [email or web address] 08/09/2024 2:30 PM EDT Appointment [facility] Adult Medicine 151 [place] [address] Mckayla Gregg MD 151 [place] [address] [email or web address] 11/24/2024 8:[address] [place] 80 [place] [address] Monet Carranza MD, PhD 55 [place] [address] [email or web address] 11/29/2024 9:40 AM EDT Office Visit [facility] NEPH[facility]OLOG[facility] (RENAL) 100 [facility] [address] [place] [address] Praveen Ball MD 55 [facility] [address] [place] [address] [phone] (work) [email or web address] documented as of this encounter Results * XR CHEST PA [...] provided indication for this examination in Epic: Cough COMPARISON: CT CHEST (INCIDENTAL FOLLOW-UP) WITHOUT [...] clinician's provided indication for this examination in Epic:Cough COMPARISON: CT CHEST (INCIDENTAL FOLLOW-UP) WITHOUT CONTRAST [...] Heather Maddox MD, MPH IMG XR CHEST documented in this encounter Visit Diagnoses Diagnosis Acute bronchitis, unspecified organism- Primary Renovascular hypertension Secondary renovascular hypertension, unspecified Routine health maintenance Unspecified examination Hypertension Unspecified essential hypertension Nasal congestion Other diseases of nasal cavity and sinuses Chronic tension-type headache, not intractable Chronic tension type headache Diffuse pain Type 1 diabetes mellitus with diabetic polyneuropathy Chronic nonintractable headache, unspecified headache type Slow transit constipation Mild intermittent asthma without complication Hay fever Allergic rhinitis, cause unspecified Chronic bilateral low back pain with left-sided sciatica Familial hypercholesterolemia Rash and other nonspecific skin eruption Acute bronchitis, unspecified organism documented in this encounter Additional Health Concerns Assessment Noted Time PHQ-9 Depression Total Score: 25 025 11:01 AM EST PHQ-2 Depression Total Score: 6 04/29/19 25 11:01 AM EST documented as of this encounter Care Teams Breaker Machine Tender Relationship Specialty Start Date End Date Alex Parks MD [address] [place] [address] [email or web address] [place] PCP - General Internal Medicine 03/13/23 Mckayla Gregg MD [address] [place] [address] [email or web address] PCP - Resident PCP Internal Medicine 06/03/23 Alex Parks MD [address] [place] [address] [email or web address] Insurance Assigned Provider 07/18/23 documented as of this encounter Additional Source Comments The information contained in this document represents components of the legal health record. It is not the complete legal health record.[facility]
--- OUTSIDE RECORDS SUMMARY | 2024-05-20 02:41 | XMS_ITS | Encounter Summary ---
Author Organization [facility] Address [phone] [facility] [place] [address] Care Team Providers Care Bit Shaver Name Role Phone Alex Parks MD Primary Care Provider [phone]- [phone] Mckayla Gregg MD Unavailable [phone] Alex Parks MD Unavailable [phone] Reason for Visit * Reason Comments Medication Refill Encounter Details Date Type Department Care Team (Late st Contact Info) Description 04/30/2024 Refill [facility] Adult Medicine 151 [place] [address] Mckayla Gregg MD 151 [place] [address] [email or web address] Medication Refill Social History Tobacco Use Types [...] as of this encounter Progress Notes * Justin Knight - 05/01/2024 1:12 AM EST IMMERSE Rx Review INSTRUCTIONS FOR CLINICAL STAFF Visit Info Last visit: 04/29/2024 Mckayla Gregg MD - Internal Medicine [place] [id number] > Requested f/u: Return in about 3 months (around 07/28/2024) for Next scheduled follow up, please make hour-long. Upcoming visit: 08/09/2024 Mckayla Gregg MD - Internal Medicine [place] [id number] Rx Pool Staff - IMMERSE: Review Required KETOCONAZOLE 2 % TOPICAL CREAM Duplicate Request: A prior renewal request for this medication was approved in the past 14 days. Protocol information is provided below for renewal guidance once above items are resolved. Provider - Summary Comments for medication Topical / Dermatology Rx Protocol Clinical Review Required (above) - ketoconazole Criteria met; renew for up to 12 months. Visit in the past 14 months: Yes documented in this encounter Plan of Treatment Upcoming Encounters Date Type Department Care Team (Late st Contact Info) Description 11/25/[address] [place] [address] [place] [address] 01/22/2024 Procedure Pass [facility] [address] [place] [address] 06/17/2024 10:40 AM EST Office Visit [facility] [address] [address] Reza Early MD 243 [place] [address] [email or web address] 06/17/2024 1:15 PM EST Appointment [facility] [address] [place] [address] Ade Ramos MD, MPH [address] [place] [address] [email or web address] 07/01/2024 11:15 AM EDT Office Visit [facility] Department of Orthopaedic Surgery, Podiatry Service [address] [place] [address] Eber Calle, DPM [address] [place] [address] [email or web address] 08/01/2024 2:20 PM EDT Office Visit [facility] [address] [address] Jaret Clemons MD 243 [facility] [place] [address] [email or web address] 08/09/2024 2:30 PM EDT Appointment [facility] Adult Medicine [address] [place] [address] Mckayla Gregg MD 151 [place] [address] [email or web address] 11/24/2024 8:[address] [place] [address] [place] [address] Monet Carranza MD, PhD 55 [place] [address] [email or web address] 11/29/2024 9:40 AM EDT Office Visit [facility] (RENAL) [address] [address] Praveen Ball MD [address] [place] [address] [address] [place] [address] [email or web address] documented as of this encounter Visit Diagnoses Not on filedocumented in this encounter Additional Health Concerns Assessment Noted Time PHQ-9 Depression Total Score: 25 025 11:01 AM EST PHQ-2 Depression Total Score: 6 04/29/19 25 11:01 AM EST documented as of this encounter Care Teams Bit Shaver Relationship Specialty Start Date End Date Alex Parks MD [address] [place] [address] [email or web address] PCP - General Internal Medicine 03/13/23 Mckayla Gregg MD [address] [place], [place] [address] [place] [address] [email or web address] PCP - Resident PCP Internal Medicine 06/03/23 Alex Parks MD [address] [place] [address] [place] [address] [email or web address] Insurance Assigned Provider 07/18/23 documented as of this encounter Additional Source Comments The information contained in this document represents components of the legal health record. It is not the complete legal health record.[facility]
--- NOTE | 2024-05-20 03:57 | ED_ITS ---
HPI - Fall General Chief Complaint: Fall Stated Complaint: fell left hip/leg pain Time Seen by Provider: 05/20/24 03:51 Source: patient and family Mode of arrival: ambulatory Limitations: no limitations History of Present Illness ED Provider: HPI Narrative: Patient walks with walker was walking with the family legs gave out and patient has slipped on the ice landed on her buttocks and left hip complaining of pain in the left hip left elbow and left shoulder x-ray was done prior to my evaluation which was normal no fracture was seen no head injury no loss of consciousness Related Data Previous Rx's ?Medication ?Instructions ?Recorded oxycodone 5 mg tablet 5 mg PO Q6H PRN pain #20 tabs 05/20/24 Allergies Allergy/AdvReac Type Severity Reaction Status Date / Time atorvastatin AdvReac Abdominal Verified 05/19/24 22:38 Pain Review of Systems Review of Systems: Yes all other systems are reviewed and are negative [facility] Social History Social History Advance Directives: No Do you have a plan to hurt others: No Plan Physical Exam Vital Signs: Vital Signs: Last Vital Signs Temp 97.9 F 05/20/24 04:17 Pulse 70 05/20/24 04:17 Resp 17 05/20/24 04:17 BP 118/60 05/20/24 04:17 Pulse Ox 95 05/20/24 04:17 O2 Del Method Room Air 05/20/24 04:17 BMI result Body Mass Index 35.1 Appearance: Alert. Oriented X3. No acute distress. Eyes: PERRLA, No Nystagmus HEENT: Pharynx normal. Oral Mucosa moist atraumatic normocephalic Neck: Normal inspection. Neck supple. CVS: Normal heart rate and rhythm. Pulses normal. Respiratory: No respiratory distress. Equal air entry bilateral, no wheezing/rales/rhonchi Abdomen: Soft and nontender. Bowel sounds are present, no mass palpable, no CVA tenderness Skin: Skin warm and dry. Normal skin color. Normal skin turgor. Extremities: No lower extremity edema. No calf tenderness diffuse tenderness left hip with good range of movement pelvis stable Neuro: Oriented X 3. No motor deficit. No sensory deficit.No cerebellar signs , cranial nerves II-XII intact Medications Administered Discontinued Medications Generic Name Dose Route Start Last Admin Trade Name Freq PRN Reason Stop Dose Admin Oxycodone HCl 10 mg 05/20/24 03:57 05/20/24 04:06 Oxycodone Hcl Immed Release 5 Mg Tablet PO 05/20/24 03:58 10 mg ONCE ONE Administration Medical Decision Making Medical Decision Making [facility] Narrative: Patient is status post mechanical fall x-ray negative for fracture patient ambulatory will discharge patient home Independent Interpretation I performed an independent interpretation of an: Plain X-Ray Radiology Impression Discussion of test interpretation with radiology: I have reviewed the radiologist's reading. Discharge Plan Discharge Clinical Impression: Back pain, Fall Patient Disposition: Home, Self-Care Instructions: Fall Prevention for Older Adults (ED), Back Pain (ED) Additional Instructions: Care and cautions as advised X-ray of your hip elbow and shoulder negative for fracture Take pain medication as prescribed Prescriptions: New oxycodone 5 mg tablet 5 mg PO Q6H PRN (Reason: pain) Qty: 20 0RF Rx Instructions: Partial Fill upon patient request. Interventions: ED Discharge Assessment Last Done: 05/20/24 04:17 Discharge Date/Time: 05/20/24 04:19 Print Language: [place]
[2024-05-20] MEDS: oxyCODONE HCl Immed Release 5 MG TABLET 10 MG PO (04:06)
[2024-05-20 04:17] VITALS: BP 118/60; PULSE 70; RESP 17; TEMP 36.6; O2SAT 95
== END 2024-05-20 04:19 | disposition home or self-care (01) ==
PROVIDERS: Emergency Provider Internal Medicine
DX: S39.92XA Unspecified injury of lower back, initial encounter (principal); M25.522 Pain in left elbow; M25.512 Pain in left shoulder; W00.0XXA Fall on same level due to ice and snow, initial encounter; Y93.9 Activity, unspecified; Y92.9 Unspecified place or not applicable; Y99.8 Other external cause status
CPT/HCPCS: 73030; 73080; 73502; 99283

== ENCOUNTER → 2024-05-19 22:50 | Outpatient (BNV) | payer MEDICARE, MEDICAID, SELFPAY | PROVIDERS: Visit Provider Radiology Neuroradiology | DX: M25.512 Pain in left shoulder (principal); M19.022 Primary osteoarthritis, left elbow; M16.0 Bilateral primary osteoarthritis of hip | CPT/HCPCS: 73080; 73502 ==